=== PATIENT | female | born 1960 | race Caucasian/White ===

== ENCOUNTER → 2017-05-14 | Outpatient (CLI) | payer OTHER ==
--- NOTE | 2017-05-16 09:25 | MM ---
Reason for exam: screening (asymptomatic). Last mammogram was performed 1 year ago. History: Patient is postmenopausal. Excisional biopsy of the left breast. Took hormonal contraceptives for 10 years. Physical Findings: A clinical breast exam by your physician is recommended on an annual basis and results should be correlated with mammographic findings. MG 3D Screening Mammo W/Cad Bilateral CC and MLO view(s) were taken. Prior study comparison: May 07, 2016, bilateral MG 3d screening mammo w/cad. October 19, 2008, bilateral diagnostic digital mammog. The breast tissue is heterogeneously dense. This may lower the sensitivity of mammography. Nodularity lateral left breast on the CC view is new or more defined from priors. ASSESSMENT: Incomplete: need additional imaging evaluation, BI-RAD 0 RECOMMENDATION: Special view mammogram and ultrasound of the left breast. (upper outer quadrant) [facility] will attempt to contact patient to return for supplemental views and ultrasound.
== END | disposition home or self-care (01) ==
LOC: RADMAMWWP 07:11
PROVIDERS: ATTEND Family Medicine
DX: Z12.31 Encounter for screening mammogram for malignant neoplasm of breast (principal); F17.200 Nicotine dependence, unspecified, uncomplicated
CPT/HCPCS: 77063; G0202

== ENCOUNTER 2018-04-09 07:43 | Day surgery (SDC) | payer OTHER ==
[2018-04-07 14:26] VITALS: BMI 27.1
[~2018-04-09 07:43] MED LIST: LACTATED RINGERS 1,000 ML IV SCH
[2018-04-09] MEDS ORDERED: LIDOCAINE 1% 20 ML VIAL (10MG/ML) FOR IV START SQ ONE (08:00)
[2018-04-09 08:05] VITALS: RESP 16; TEMP 97.7
[2018-04-09] MEDS ORDERED: PROPOFOL 10 MG/ML 20 ML VIAL IV ONE (08:54)
--- NOTE | 2018-04-09 09:17 | P.GSHP ---
History of Present Illness H&P Date: 04/09/18 Chief Complaint: GERD This is a 57-year-old female referred from Dr. Gutierrez. Patient presents today for EGD. She's had issues with GERD. Past Medical History Past Medical History: Asthma, GERD/Reflux, Mitral Valve Prolapse (MVP), Pneumonia, Skin Disorder, Thyroid Disorder Additional Past Medical History / Comment(s): HIATAL HERNIA, IBS, COLITIS LONG TIME AGO, STRESS INCONT OF URINE. occ migraines, dermatitis, History of Any Multi-Drug Resistant Organisms: MRSA Date of last positivie culture/infection: 2010 MDRO Source:: knee-2008, rt thumb 2010 Past Surgical History: Adenoidectomy, Breast Surgery, Section, Cholecystectomy, Orthopedic Surgery, Tonsillectomy Additional Past Surgical History / Comment(s): RT knee ACL surgery, RT GREAT TOE FUSION,, jeanine carpel tunnel, nose/sinusl surgery, jeanine bunionectom(rt x 2), surgery for tubal , left breast lumpectomy Past Anesthesia/Blood Transfusion Reactions: Previous Problems w/ Anesthesia Additional Past Anesthesia/Blood Transfusion Reaction / Comment(s): woke up during surgery Smoking Status: Current every day smoker - Past Family History Mother Family Medical History: Cancer Additional Family Medical History / Comment(s): MULTIPLE MYELOMA Father Family Medical History: Cancer Additional Family Medical History / Comment(s): skin cancer Medications and Allergies Home Medications Medication Instructions Recorded Confirmed Type Albuterol Sulfate [Proair Hfa] 2 puff INHALATION Q6HR PRN 04/03/16 04/07/18 History Ascorbic Acid [Vitamin C] 1,000 mg PO DAILY 04/03/16 04/07/18 History Clobetasol Propionate [Temovate 1 applic TOPICAL BID 04/03/16 04/07/18 History 0.05% Cream] Levothyroxine Sodium [Synthroid] 75 mcg PO DAILY 04/03/16 04/07/18 History Aspirin 81 mg PO DAILY #1 chewable 04/05/16 04/07/18 Rx Nitroglycerin Sl Tabs [Nitrostat] 0.4 mg SUBLINGUAL Q5M PRN #25 tab 04/05/1606/14 Rx Omeprazole [PriLOSEC] 20 mg PO AC-BRKFST #30 cap 04/05/16 04/07/18 Rx Cholecalciferol [Vitamin D3] 2,000 unit PO DAILY 04/07/18 04/07/18 History DULoxetine HCL [Cymbalta] 60 mg PO DAILY 04/07/18 04/07/18 History Isosorbide Mononitrate ER [Imdur] 15 mg PO DAILY 04/07/18 04/09/18 History Magnesium Oxide [Mag-Ox] 250 mg PO DAILY 04/07/18 04/07/18 History Montelukast [Singulair] 10 mg PO DAILY 04/07/18 04/07/18 History Sucralfate [Carafate] 1 gm PO QAM 04/07/18 04/07/18 History Turmeric Root Extract [Turmeric] 1,000 mg PO DAILY 04/07/18 04/07/18 History Allergies Allergy/AdvReac Type Severity Reaction Status Date / Time aspirin Allergy Abdominal Verified 04/09/18 07:57 Pain nickel Allergy itching, Verified 04/09/18 07:56 rash Penicillins Allergy Rash/Hives Verified 04/09/18 07:56 Surgical - Exam Vital Signs Temp Pulse Resp BP Pulse Ox 97.7 F 57 L 16 112/72 97 04/09/18 08:04 04/09/18 08:04 04/09/18 08:04 04/09/18 08:04 04/09/18 08:04 - General well developed, no distress - Eyes PERRL - ENT normal pinna - Neck no masses - Respiratory normal expansion - Cardiovascular Rhythm: regular - Abdomen Abdomen: soft, non tender Assessment and Plan Assessment: GERD. We'll perform EGD.
--- NOTE | 2018-04-09 09:20 | P.OP ---
Date of Procedure: 04/09/18 Preoperative Diagnosis: GERD Postoperative Diagnosis: Antral gastritis Small hiatal hernia Mild esophagitis Procedure(s) Performed: EGD Anesthesia: MAC Surgeon: Kevin Mark Pathology: other (Antrum, esophagus) Condition: stable Disposition: PACU Description of Procedure: The patient's placed on the endoscopy table in the lateral position. She received IV sedation. The gastroscope was oropharynx passed in the esophagus and into the stomach. Scope was then placed through the pylorus. The first and second portion of the duodenum appeared normal. Scope was then brought back the antrum this was mildly inflamed. A biopsies performed. The scope was then retroflexed and the remainder of the stomach appeared normal. There was a small hiatal hernia. The GE junction was at 38 cm. The distal esophagus. Minimal inflamed a biopsies performed. The proximal esophagus appeared normal. Scope was withdrawn for patient.
[2018-04-09 09:25] VITALS: PULSE 76
[2018-04-09 09:38] VITALS: BP 95/64
== END 2018-04-09 09:52 | disposition home or self-care (01) ==
LOC: ORWHC2ENDO 07:43
PROVIDERS: ATTEND Surgery
DX: K21.0 Gastro-esophageal reflux disease with esophagitis (principal); K29.50 Unspecified chronic gastritis without bleeding; K44.9 Diaphragmatic hernia without obstruction or gangrene; J44.9 Chronic obstructive pulmonary disease, unspecified; E07.9 Disorder of thyroid, unspecified; I34.1 Nonrheumatic mitral (valve) prolapse; F17.200 Nicotine dependence, unspecified, uncomplicated; Z86.14 Personal history of Methicillin resistant Staphylococcus aureus infection; G43.909 Migraine, unspecified, not intractable, without status migrainosus; Z79.82 Long term (current) use of aspirin; Z79.890 Hormone replacement therapy; Z79.899 Other long term (current) drug therapy; Z88.6 Allergy status to analgesic agent; Z88.0 Allergy status to penicillin; Z91.09 Other allergy status, other than to drugs and biological substances
CPT/HCPCS: 88305; 43239; J2704

== ENCOUNTER 2018-04-29 09:10 | Inpatient (IN) | payer OTHER ==
[2018-04-28 08:32] VITALS: BMI 27.1
[~2018-04-29 09:10] MED LIST changes: +DEXAMETHASONE SOD PHOSPHATE 10 MG/ML 1 ML VIAL IV ONE; +FAMOTIDINE 20 MG/2 ML VIAL IV PRN; +HEPARIN SODIUM,PORCINE 5,000 UNIT/ML 1 ML VIAL SQ ONE; +HYDROmorphone 0.5 MG/0.5 ML SYRINGE IVP PRN; -LACTATED RINGERS 1,000 ML IV SCH; +MORPHINE SULFATE 4 MG/ML SYRINGE IV PRN; +ONDANSETRON 4 MG/2 ML VIAL IVP ONE; +ONDANSETRON 4 MG/2 ML VIAL IVP PRN; +ceFAZolin IN SWFI 2 GM/20 ML SYRINGE IVP ONE
[2018-04-29] MEDS ORDERED: LIDOCAINE 1% 20 ML VIAL (10MG/ML) FOR IV START IV ONE (12:06)
[2018-04-29] MEDS: LACTATED RINGERS 1,000 ML IV SCH ×2 (12:15→14:53)
--- NOTE | 2018-04-29 13:10 | P.GSHP ---
History of Present Illness H&P Date: 04/29/18 Chief Complaint: GERD This 57-year-old female referred from Dr. Gutierrez.The patient has had long- standing problems with reflux esophagitis. The patient underwent recent EGD is found have evidence of esophagitis. Patient has been well informed on the procedure of laparoscopic Nicole fundoplication. The patient is aware the risk of the conversion to the open procedure, risk of injury to the stomach, liver and spleen. The patient is also a risk of recurrent GERD and dysphagia symptoms. The patient understands there is a postoperative diet of full liquids for 2 weeks after surgery. Past Medical History Past Medical History: Asthma, GERD/Reflux, Mitral Valve Prolapse (MVP), Pneumonia, Skin Disorder, Thyroid Disorder Additional Past Medical History / Comment(s): HIATAL HERNIA, IBS, COLITIS LONG TIME AGO, STRESS INCONT OF URINE. occ migraines, dermatitis, heart palpitations History of Any Multi-Drug Resistant Organisms: MRSA Date of last positivie culture/infection: 2010 MDRO Source:: knee-2008, rt thumb 2010 Past Surgical History: Adenoidectomy, Breast Surgery, Section, Cholecystectomy, Orthopedic Surgery, Tonsillectomy Additional Past Surgical History / Comment(s): RT knee ACL surgery, RT GREAT TOE FUSION,, jeanine carpel tunnel, nose/sinusl surgery, jeanine bunionectom(rt x 2), surgery for tubal , left breast lumpectomy Past Anesthesia/Blood Transfusion Reactions: Previous Problems w/ Anesthesia Additional Past Anesthesia/Blood Transfusion Reaction / Comment(s): woke up during surgery Smoking Status: Current every day smoker - Past Family History Mother Family Medical History: Cancer Additional Family Medical History / Comment(s): MULTIPLE MYELOMA Father Family Medical History: Cancer Additional Family Medical History / Comment(s): skin cancer Medications and Allergies Home Medications Medication Instructions Recorded Confirmed Type Albuterol Sulfate [Proair Hfa] 2 puff INHALATION Q6HR PRN 04/03/16 04/29/18 History Ascorbic Acid [Vitamin C] 1,000 mg PO DAILY 04/03/16 04/29/18 History Clobetasol Propionate [Temovate 1 applic TOPICAL BID 04/03/16 04/29/18 History 0.05% Cream] Levothyroxine Sodium [Synthroid] 75 mcg PO DAILY 04/03/16 04/29/18 History Aspirin 81 mg PO DAILY #1 chewable 04/05/16 04/28/18 Rx Nitroglycerin Sl Tabs [Nitrostat] 0.4 mg SUBLINGUAL Q5M PRN #25 tab 04/05/1609/14 Rx Omeprazole [PriLOSEC] 20 mg PO AC-BRKFST #30 cap 04/05/16 04/29/18 Rx Cholecalciferol [Vitamin D3] 2,000 unit PO DAILY 04/07/18 04/29/18 History DULoxetine HCL [Cymbalta] 60 mg PO DAILY 04/07/18 04/29/18 History Isosorbide Mononitrate ER [Imdur] 15 mg PO DAILY 04/07/18 04/29/18 History Magnesium Oxide [Mag-Ox] 250 mg PO DAILY 04/07/18 04/29/18 History Montelukast [Singulair] 10 mg PO DAILY 04/07/18 04/29/18 History Sucralfate [Carafate] 1 gm PO QAM 04/07/18 04/29/18 History Turmeric Root Extract [Turmeric] 1,000 mg PO DAILY 04/07/18 04/29/18 History Gabapentin [Neurontin] 300 mg PO HS 04/28/18 04/29/18 History Allergies Allergy/AdvReac Type Severity Reaction Status Date / Time aspirin Allergy Abdominal Verified 04/29/18 11:51 Pain nickel Allergy itching, Verified 04/29/18 11:51 rash Penicillins Allergy Rash/Hives Verified 04/29/18 11:51 Surgical - Exam Vital Signs Temp Pulse Resp BP Pulse Ox 97.4 F L 79 18 133/70 94 L 04/29/18 11:57 04/29/18 11:57 04/29/18 11:57 04/29/18 11:57 04/29/18 11:57 - General well developed, no distress - Eyes PERRL - ENT normal pinna - Neck no masses - Respiratory normal expansion - Cardiovascular Rhythm: regular - Abdomen Abdomen: soft, non tender Assessment and Plan Assessment: GERD. We'll perform laparoscopic Nicole fundal plication.
[2018-04-29] MEDS ORDERED: LIDOCAINE 1% INJ 10MG/ML (20 ML MDV) ONE (13:42)
[2018-04-29] MEDS ORDERED: KETOROLAC 30 MG/ML 1 ML VIAL ONE (13:42)
[2018-04-29] MEDS ORDERED: MIDAZOLAM 2 MG/2 ML VIAL ONE (13:42)
[2018-04-29] MEDS ORDERED: fentaNYL (PF) 50 MCG/ML 2 ML AMP ONE (13:42)
[2018-04-29] MEDS ORDERED: PROPOFOL 10 MG/ML 20 ML VIAL IV ONE (13:42)
[2018-04-29] MEDS ORDERED: ROCURONIUM BROMIDE 10 MG/ML 10 ML VIAL IV ONE (13:42)
[2018-04-29] MEDS ORDERED: GLYCOPYRROLATE 0.2 MG/ML 2 ML VIAL ONE (13:42)
[2018-04-29] MEDS ORDERED: NEOSTIGMINE 1 MG/ML 10 ML VIAL ONE (13:42)
[2018-04-29] MEDS ORDERED: BUPIVACAIN-EPI 0.25%-1:200,000 30 ML VIAL SQ ONE (14:07)
--- NOTE | 2018-04-29 14:37 | P.OP ---
Date of Procedure: 04/29/18 Preoperative Diagnosis: GERD Postoperative Diagnosis: GERD Procedure(s) Performed: Laparoscopic Nicole fundoplication Anesthesia: PHILLIP Surgeon: Kevin Mark Estimated Blood Loss (ml): 5 Pathology: none sent Condition: stable Disposition: PACU Description of Procedure: HThe patient was placed on the operating table in the supine position. The patient received general anesthesia. And was placed in dorsal lithotomy position. The patient was prepped and draped in the usual sterile fashion. The skin incision sites were anesthetized with 1% local Xylocaine. The skin was incised in the left periumbilical area and then using a blade less 5 mm trocar under direct visualization panel cavity was entered. After adequate insufflation the laparoscope was then placed into the peritoneal cavity. Next a 5 mm trochars placed in the right epigastric position. Another 5 millimeter trocar the right lateral position. Another 5 millimeter trocar in the left lateral position a 5 mm trocar is placed in the left epigastric position. And then the initial 5 mm trocar was exchanged for a 10 mm trocar. The left lateral lobe liver was retracted. The hernia was seen. The crural defect was then dissected using the Harmonic scissors device. A 360 crural dissection was performed the esophagus stomach was reduced back into the peritoneal Cavity. The crural defect was then closed using 2-0 Ethibond suture. Next the fundus of the stomach was mobilized using the [place] scissors device. and then a 58-Emirati bougie dilator was placed oropharynx passed into the esophagus and stomach the fundal plication wrap was then performed by grasping the fundus posteriorly and bringing it around the esophagus and stomach fundoplication was then performed using 2-0 Ethibond suture. Care was taken that the fundal location rested over top of the intra-abdominal esophagus. There was no injury seen to the stomach or esophagus. The dilator was then withdrawn. The abdomen was irrigated there is no bleeding seen. The trochars were then withdrawn and then skin incision sites were closed using 3-0 Monocryl suture Steri-Strips are applied. Patient thought procedure well and sent to recovery room in stable condition.
[2018-04-29] MEDS ORDERED: LACTATED RINGERS 1,000 ML IV ONE (14:49)
[2018-04-29] MEDS ORDERED: HYDROmorphone 1 MG/ML 1 ML SYRINGE IVP ONE (15:11)
[2018-04-29] MEDS ORDERED: ALBUTEROL NEBULIZED 2.5 MG/3 ML INHALATION PRN (16:45)
[2018-04-29] MEDS ORDERED: NITROGLYCERIN SL TABS 0.4 MG TAB SUBLINGUAL PRN (16:45)
[2018-04-29] MEDS: METOCLOPRAMIDE 5 MG/ML 2 ML VIAL IVP SCH (17:08)
[2018-04-29] MEDS: D5-0.45% NACL WITH KCL 20MEQ/L 1,000 ML IV SCH (17:09)
[2018-04-29] MEDS: HYDROmorphone 1 MG/ML 1 ML SYRINGE IVP PRN ×2 (19:31→23:00)
[2018-04-29] MEDS ORDERED: GABAPENTIN 300 MG CAP PO SCH (21:00)
[2018-04-29] MEDS: CLOBETASOL PROP 0.05% CR 15GM TOPICAL SCH (21:53)
--- NOTE | 2018-04-29 22:39 | CONS ---
CONSULTATION DATE OF CONSULTATION: 04/29/2018 DATE OF SERVICE: 04/29/2018 REASON FOR CONSULTATION: Medical management, requested by Dr. Mark. CONSULTATION: This is a pleasant 57-year-old patient of Dr. Gutierrez whose chronic stable medical conditions include asthma, GERD, mitral valve prolapse, hypothyroid, irritable bowel syndrome, urinary stress incontinence, anxiety. The patient was having severe reflux symptoms, including water brash, uncontrolled, and patient now has subsequently undergone a Nicole fundoplication by Dr. Mark. Post procedure, no chest pain or shortness of breath. No nausea or vomiting. Lying in bed, getting IV fluids. Patient was started on a clear liquid diet. The patient has been up to the bathroom. REVIEW OF SYSTEMS: CONSTITUTIONAL: None. HEENT: None. RESPIRATORY: Occasional wheezing and shortness of breath. CARDIOVASCULAR: None. GASTROINTESTINAL: As above. GENITOURINARY: Urinary stress incontinence. DERMATOLOGICAL: None. HEMATOLOGICAL: None. LYMPHATICS: None. PSYCHIATRY: Anxiety. NEUROLOGICAL: None. PAST MEDICAL HISTORY: 1. Asthma since childhood. 2. Severe GERD. 3. Mitral valve prolapse. 4. Hypothyroid. 5. Hiatal hernia. 6. Irritable bowel syndrome. 7. Urinary stress incontinence. 8. Anxiety. PAST SURGICAL HISTORY: 1. Adenoidectomy. 2. Breast surgery. 3. . 4. Cholecystectomy. 5. Orthopedic surgery. 6. Tonsillectomy. 7. Right knee ACL surgery. 8. Right great toe fusion. 9. Bilateral carpal tunnel. 10.Nose surgery. 11.Bilateral bunionectomy. 12.Left breast lumpectomy. PSYCH HISTORY: Anxiety. SOCIAL HISTORY: The patient has been smoking about half a pack a day for over 40 years. . Alcohol occasionally. FAMILY HISTORY: Multiple myeloma. HOME MEDICATIONS: 1. Turmeric 1000 mg p.o. daily. 2. Carafate 1 gram p.o. daily. 3. Prilosec 20 mg with breakfast. 4. Nitrostat 0.4 sublingually q.5 p.r.n. 5. Singulair 10 mg p.o. daily. 6. Magnesium oxide 250 mg p.o. daily. 7. Synthroid 75 mcg daily. 8. Imdur ER 50 mg p.o. daily. 9. Neurontin 300 mg at bedtime. 10.Cymbalta 60 mg p.o. daily. 11.Temovate 0.05% topically b.i.d. 12.Vitamin D3 2000 units p.o. daily. 13.Aspirin 81 mg p.o. daily. 14.Vitamin C 1000 units p.o. daily. 15.ProAir 2 puffs q.6 p.r.n. ALLERGIES: 1. ASPIRIN. 2. NICKEL. 3. PENICILLIN. PHYSICAL EXAMINATION: Afebrile. Pulse 76, respiration 18, blood pressure 112/73, pulse ox 95% on 2 L. GENERAL APPEARANCE: Average build. Lying in bed, awake, comfortable. EYES: Pupils equal. Conjunctivae normal. HEENT: External appearance of nose and ears normal. Oral cavity normal. NECK: JVD not raised. Mass not palpable. RESPIRATORY: Effort normal. LUNGS: Decreased breath sounds. CARDIOVASCULAR: First and second sounds normal. No edema. ABDOMEN: Soft. Mild tenderness. Liver and spleen not palpable. LYMPHATIC: No lymph node palpable in neck or axillae. PSYCHIATRY: Alert and oriented x3. Mood and affect normal. NEUROLOGICAL: Pupils equal. Cranial nerves grossly intact. Power and sensation grossly intact. INVESTIGATIONS: No blood work from today. ASSESSMENT: 1. Nicole fundoplication for uncontrolled gastroesophageal reflux disease. 2. Moderate persistent asthma, stable. 3. Hypothyroid. 4. Irritable bowel syndrome. 5. Chronic urinary stress incontinence. 6. Anxiety not otherwise specified. 7. Chronic nicotine dependence. Patient is a cigarette smoker. PLAN: Patient's home medications are resumed. Patient is on Venodyne boots for DVT prophylaxis, getting IV fluids. Patient is Nicole clear liquids. Diet will be advanced per Dr. Mark. Care was discussed with the patient. Questions were answered. Nicotine patch will be given. MMODL / IJN: [id number] /
[2018-04-30] MEDS: NICOTINE 14MG/24HR PATCH TRANSDERM SCH ×2 (00:05→08:43)
[2018-04-30] MEDS: METOCLOPRAMIDE 5 MG/ML 2 ML VIAL IVP SCH ×3 (00:06→12:20)
[2018-04-30] MEDS: HYDROmorphone 1 MG/ML 1 ML SYRINGE IVP PRN (03:28)
[2018-04-30] MEDS ORDERED: LEVOTHYROXINE 75 MCG TAB PO SCH (06:30)
[2018-04-30] MEDS ORDERED: PANTOPRAZOLE 40 MG TABLET PO SCH (07:30)
[2018-04-30 08:12] VITALS: BP 99/64; PULSE 74; RESP 16; TEMP 98
[2018-04-30] MEDS: D5-0.45% NACL WITH KCL 20MEQ/L 1,000 ML IV SCH (08:26)
[2018-04-30] MEDS: CLOBETASOL PROP 0.05% CR 15GM TOPICAL SCH (08:43)
--- NOTE | 2018-04-30 08:59 | FL ---
EXAMINATION TYPE: FL esophagus cervic/pharynx DATE OF EXAM: 04/30/2018 HISTORY: Status post Nicole fundoplication COMPARISON: NONE TECHNIQUE: Single contrast exam FINDINGS: The esophagus shows normal motility and emptying into the stomach. No evidence of hiatal hernia or s tricture noted. Postop change noted at the gastroesophageal junction. No significant gastroesophageal reflux was seen during real time performance of this study. No obstruction to flow or extravasation. Surgical clips present in the right upper quadrant. 21 seconds fluoroscopy time, 2 intraoperative im ages obtained. IMPRESSION: No complications secondary to patient's procedure.
[2018-04-30] MEDS ORDERED: ASPIRIN 81 MG PO SCH (09:00)
[2018-04-30] MEDS ORDERED: ISOSORBIDE MONONITRATE ER 15 MG TAB PO SCH (09:00)
[2018-04-30] MEDS ORDERED: ENOXAPARIN 40 MG/0.4 ML SYRINGE SQ SCH (09:00)
[2018-04-30] MEDS ORDERED: MONTELUKAST 10 MG TAB PO SCH (09:00)
[2018-04-30] MEDS ORDERED: DULoxetine HCL 60 MG CAPSULE.DR PO SCH (09:00)
[2018-04-30] MEDS ORDERED: HYDROcodone/APAP 5-325MG 1 EACH TAB PO PRN (09:31)
--- NOTE | 2018-04-30 11:01 | P.DS ---
Providers Date of admission: 04/29/18 10:06 Expected date of discharge: 04/30/18 Attending physician: Kevin Mark Consults: 04/29/18 14:38 Consult Physician Routine Consulting Provider: Mane Dalton Consult Reason/Comments: Medical management Do you want consulting provider notified?: Yes Primary care physician: [place] [facility] Course: 57-year-old presented on elective basis to undergo any laparoscopic Nicole fundoplication for symptomatic esophageal reflux symptoms failing outpatient treatment Patient underwent recent EGD showed evidence of esophagitis. Has a long- standing problem with reflux esophagitis. Patient underwent laparoscopic Nicole fundoplication on April 29. Esophagram obtained showed no complications secondary to patient's procedure no evidence of a hiatal hernia or stricture. Patient was tolerating a diet was felt to be appropriate to be discharged home On the day of discharge patient was up ambulatory on the unit taking a diet surgical dressing sites dry Impression discharge diagnosis Esophageal reflux disease symptomatic failed outpatient treatment Postop April laparoscopic Nicole fundoplication Recent EGDs with evidence of esophagitis Long-standing problem with reflux esophagitis The above impression and plan of care have been discussed and directed by signing physician. Ivy Logan nurse practitioner acting as scribe for signing physician. Plan - Discharge Summary Discharge Rx Participant: No New Discharge Prescriptions: New HYDROcodone/APAP 5-325MG [[place] 5-325] 1 tab PO Q6HR PRN 3 Days #12 tab PRN Reason: Mild Breakthrough Pain No Action Levothyroxine Sodium [Synthroid] 75 mcg PO DAILY Clobetasol Propionate [Temovate 0.05% Cream] 1 applic TOPICAL BID Ascorbic Acid [Vitamin C] 1,000 mg PO DAILY Albuterol Sulfate [Proair Hfa] 2 puff INHALATION RT-Q6H PRN PRN Reason: Shortness Of Breath Aspirin 81 mg PO DAILY #1 chewable Nitroglycerin Sl Tabs [Nitrostat] 0.4 mg SUBLINGUAL Q5M PRN #25 tab PRN Reason: Chest Pain Omeprazole [PriLOSEC] 20 mg PO AC-BRKFST #30 cap Magnesium Oxide [Mag-Ox] 250 mg PO DAILY Cholecalciferol [Vitamin D3] 2,000 unit PO DAILY Sucralfate [Carafate] 1 gm PO QAM Isosorbide Mononitrate ER [Imdur] 15 mg PO DAILY Montelukast [Singulair] 10 mg PO DAILY DULoxetine HCL [Cymbalta] 60 mg PO DAILY Turmeric Root Extract [Turmeric] 1,000 mg PO DAILY Gabapentin [Neurontin] 300 mg PO HS Discharge Medication List Albuterol Sulfate [Proair Hfa] 2 puff INHALATION RT-Q6H PRN 04/03/16 [History] Ascorbic Acid [Vitamin C] 1,000 mg PO DAILY 04/03/16 [History] Clobetasol Propionate [Temovate 0.05% Cream] 1 applic TOPICAL BID 04/03/16 [ History] Levothyroxine Sodium [Synthroid] 75 mcg PO DAILY 04/03/16 [History] Aspirin 81 mg PO DAILY #1 chewable 04/05/16 [Rx] Nitroglycerin Sl Tabs [Nitrostat] 0.4 mg SUBLINGUAL Q5M PRN #25 tab 04/05/16 [Rx ] Omeprazole [PriLOSEC] 20 mg PO AC-BRKFST #30 cap 04/05/16 [Rx] Cholecalciferol [Vitamin D3] 2,000 unit PO DAILY 04/07/18 [History] DULoxetine HCL [Cymbalta] 60 mg PO DAILY 04/07/18 [History] Isosorbide Mononitrate ER [Imdur] 15 mg PO DAILY 04/07/18 [History] Magnesium Oxide [Mag-Ox] 250 mg PO DAILY 04/07/18 [History] Montelukast [Singulair] 10 mg PO DAILY 04/07/18 [History] Sucralfate [Carafate] 1 gm PO QAM 04/07/18 [History] Turmeric Root Extract [Turmeric] 1,000 mg PO DAILY 04/07/18 [History] Gabapentin [Neurontin] 300 mg PO HS 04/28/18 [History] HYDROcodone/APAP 5-325MG [[place] 5-325] 1 tab PO Q6HR PRN 3 Days #12 tab [Rx] Follow up Appointment(s)/Referral(s): Kevin Mark MD [STAFF PHYSICIAN] - 05/12/18 1:20 pm Activity/Diet/Wound Care/Special Instructions: No tub bath for six weeks. Shower daily. No lifting over 10 pounds for the next 4 weeks. Full liquid diet for 2 weeks after surgery May use ice packs to surgical site. No driving while taking narcotic for pain. Discharge Disposition: HOME SELF-CARE
== END 2018-04-30 13:15 | disposition home or self-care (01) | DRG 328 ==
LOC: 2ORMAIN 10:06 → 6PED 14:42
PROVIDERS: ADMIT Surgery; ATTEND Surgery
PROC: 0DV44ZZ Restriction of Esophagogastric Junction, Percutaneous Endoscopic Approach (ICD-10-PCS; principal; 2018-04-29 12:10)
DX: K21.0 Gastro-esophageal reflux disease with esophagitis (principal); E03.9 Hypothyroidism, unspecified; F17.210 Nicotine dependence, cigarettes, uncomplicated; F41.9 Anxiety disorder, unspecified; I34.1 Nonrheumatic mitral (valve) prolapse; J45.40 Moderate persistent asthma, uncomplicated; K58.9 Irritable bowel syndrome, unspecified; N39.3 Stress incontinence (female) (male); Z79.82 Long term (current) use of aspirin; Z79.899 Other long term (current) drug therapy; Z80.7 Family history of other malignant neoplasms of lymphoid, hematopoietic and related tissues; Z80.8 Family history of malignant neoplasm of other organs or systems; Z88.6 Allergy status to analgesic agent; Z88.0 Allergy status to penicillin; Z91.048 Other nonmedicinal substance allergy status; Z79.890 Hormone replacement therapy
CPT/HCPCS: 74210

== ENCOUNTER 2019-05-17 15:22 | Emergency (ER) | payer OTHER ==
[2019-05-17 15:40] VITALS: RESP 18
[2019-05-17] MEDS ORDERED: SODIUM CHLORIDE 0.9% 1,000 ML IV STA (16:12)
[2019-05-17] MEDS ORDERED: KETOROLAC 30 MG/ML 1 ML VIAL IVP STA (16:12)
[2019-05-17] MEDS ORDERED: ONDANSETRON 4 MG/2 ML VIAL IVP STA (16:12)
--- NOTE | 2019-05-17 16:18 | ED ---
Abdominal Pain HPI - General Chief Complaint: Abdominal Pain Stated Complaint: fever and Abd pain sent by PCP Time Seen by Provider: 05/17/19 15:55 Source: patient Mode of arrival: ambulatory Limitations: no limitations - History of Present Illness Initial Comments: Patient is a 4-year-old female presenting to the emergency department complaints of abdominal pain, nausea, diarrhea 2 weeks. Patient went to her PCP today who then sent her to the ER. Patient also has had a fever for the last few days, around the 100.6. Patient has been taking aspirin as well as Tylenol for fever control. Patient took 2 aspirin approximately 2 hours prior to arrival. Patient states she has never had diarrhea for this long, no history of IBS, Crohn's, UC. She denies recent antibiotic use. Patient states her belly pain is widespread and mostly lower abdominal. Patient denies any urinary complaints. Patient states she has not been able to eat and drink very much secondary to the pain. Surgical history of cholecystectomy, hiatal hernia repair. Patient has no other complaints at this time. Patient denies cough, congestion, chest pain, headache. Upon arrival to ER, vital signs are stable. - Related Data Home Medications Medication Instructions Recorded Confirmed Albuterol Sulfate [Proair Hfa] 2 puff INHALATION RT-Q6H PRN 04/03/16 04/29/18 Ascorbic Acid [Vitamin C] 1,000 mg PO DAILY 04/03/16 04/29/18 Clobetasol Propionate [Temovate 1 applic TOPICAL BID 04/03/16 04/29/18 0.05% Cream] Levothyroxine Sodium [Synthroid] 75 mcg PO DAILY 04/03/16 04/29/18 Cholecalciferol [Vitamin D3] 2,000 unit PO DAILY 04/07/18 04/29/18 DULoxetine HCL [Cymbalta] 60 mg PO DAILY 04/07/18 04/29/18 Isosorbide Mononitrate ER [Imdur] 15 mg PO DAILY 04/07/18 04/29/18 Magnesium Oxide [Mag-Ox] 250 mg PO DAILY 04/07/18 04/29/18 Montelukast [Singulair] 10 mg PO DAILY 04/07/18 04/29/18 Sucralfate [Carafate] 1 gm PO QAM 04/07/18 04/29/18 Turmeric Root Extract [Turmeric] 1,000 mg PO DAILY 04/07/18 04/29/18 Gabapentin [Neurontin] 300 mg PO HS 04/28/18 04/29/18 Previous Rx's Medication Instructions Recorded Aspirin 81 mg PO DAILY #1 chewable 04/05/16 Nitroglycerin Sl Tabs [Nitrostat] 0.4 mg SUBLINGUAL Q5M PRN #25 tab 04/05/16 Omeprazole [PriLOSEC] 20 mg PO AC-BRKFST #30 cap 04/05/16 HYDROcodone/APAP 5-325MG [[place] 1 tab PO Q6HR PRN 3 Days #12 tab 04/30/18 5-325] Levofloxacin 500 mg PO DAILY 5 Days #5 tablet 05/17/19 Ondansetron Odt [Zofran Odt] 4 mg PO Q8HR PRN #10 tab 05/17/19 metroNIDAZOLE [Flagyl] 500 mg PO BID 5 Days #10 tab 05/17/19 Allergies Allergy/AdvReac Type Severity Reaction Status Date / Time aspirin Allergy Abdominal Verified 05/17/19 15:40 Pain nickel Allergy itching, Verified 05/17/19 15:40 rash Penicillins Allergy Rash/Hives Verified 05/17/19 15:40 Review of Systems ROS Statement: Those systems with pertinent positive or pertinent negative responses have been documented in the HPI. ROS Other: All systems not noted in ROS Statement are negative. Past Medical History Past Medical History: Asthma, GERD/Reflux, Mitral Valve Prolapse (MVP), Pneumonia, Skin Disorder, Thyroid Disorder Additional Past Medical History / Comment(s): HIATAL HERNIA, IBS, COLITIS LONG TIME AGO, STRESS INCONT OF URINE. occ migraines, dermatitis, heart palpitations History of Any Multi-Drug Resistant Organisms: MRSA Date of last positivie culture/infection: 2010 MDRO Source:: knee-2008, rt thumb 2010 Past Surgical History: Adenoidectomy, Breast Surgery, Section, Cholecystectomy, Orthopedic Surgery, Tonsillectomy Additional Past Surgical History / Comment(s): RT knee ACL surgery, RT GREAT TOE FUSION,, jeanine carpel tunnel, nose/sinusl surgery, jeanine bunionectom(rt x 2), surgery for tubal , left breast lumpectomy Past Anesthesia/Blood Transfusion Reactions: Previous Problems w/ Anesthesia Additional Past Anesthesia/Blood Transfusion Reaction / Comment(s): woke up during surgery Past Psychological History: Anxiety Smoking Status: Current every day smoker Past Alcohol Use History: Occasional Past Drug Use History: None Reported - Past Family History Mother Family Medical History: Cancer Additional Family Medical History / Comment(s): MULTIPLE MYELOMA Father Family Medical History: Cancer Additional Family Medical History / Comment(s): skin cancer General Exam - General Exam Comments Initial Comments: GENERAL: Well-appearing, well-nourished and in no acute distress, but appears uncomfortable and in pain. HEAD: Atraumatic, normocephalic. EYES: Pupils equal round and reactive to light, extraocular movements intact, sclera anicteric, conjunctiva are normal. ENT: TMs normal, nares patent, oropharynx clear without exudates. Moist mucous membranes. NECK: Normal range of motion, supple without lymphadenopathy or JVD. LUNGS: Breath sounds clear to auscultation bilaterally and equal. No wheezes rales or rhonchi. HEART: Regular rate and rhythm without murmurs, rubs or gallops. ABDOMEN: Generalized abdominal tenderness mostly lower abdomen, well as right side and left-sided abdomen. Soft, hyperactive bowel sounds. No masses appreciated. : Deferred EXTREMITIES: Normal range of motion, no pitting or edema. No clubbing or cyanosis. NEUROLOGICAL: Cranial nerves II through XII grossly intact. Normal speech, normal gait. PSYCH: Normal mood, normal affect. SKIN: Warm, Dry, normal turgor, no rashes or lesions noted. Limitations: no limitations Course Vital Signs 05/17/19 15:37 Temperature 98.5 F Pulse Rate 92 Respiratory 18 Rate Blood Pressure 106/73 O2 Sat by Pulse 98 Oximetry Medical Decision Making - Medical Decision Making Patient is a 58-year-old female presenting with abdominal pain, nausea, vomiting, diarrhea 2 weeks. Vital signs are stable upon arrival. Patient has been febrile. Exam reveals generalized abdominal tenderness. CBC shows 14.8 white count, coags are normal. CMP is within normal limits. Lactic acid is 1.1. Urine shows small amount of blood, moderate bacteria. CT of the abdomen shows colitis from the ascending colon through the transverse colon through the descending colon. Patient is unable to leave stool sample at this time. Patient was given fluids, Zofran, Toradol and reports improvement in symptoms. Patient will be started on Levaquin and Flagyl for symptoms as well as Zofran as needed for nausea. Patient will also be discharged with a stool collection kit and prescription for stool studies if symptoms persist. Patient is in agreement with this plan of care. Case discussed with Dr. Aguila who also agrees with this plan of care. Strict return parameters were discussed with the patient she verbalized understanding. - Lab Data Result diagrams: 05/17/19 16:40 05/17/19 16:40 Lab Results 05/17/19 05/17/19 05/17/19 Range/Units 16:40 16:40 16:40 WBC 14.8 H (3.8-10.6) k/uL RBC 4.76 (3.80-5.40) m/uL Hgb 14.8 (11.4-16.0) gm/dL Hct 45.5 (34.0-46.0) % MCV 95.7 (80.0-100.0) fL MCH 31.0 (25.0-35.0) pg MCHC 32.4 (31.0-37.0) g/dL RDW 13.5 (11.5-15.5) % Plt Count 379 (150-450) k/uL Neutrophils % 77 % Lymphocytes % 13 % Monocytes % 6 % Eosinophils % 3 % Basophils % 1 % Neutrophils # 11.4 H (1.3-7.7) k/uL Lymphocytes # 1.8 (1.0-4.8) k/uL Monocytes # 0.9 (0-1.0) k/uL Eosinophils # 0.4 (0-0.7) k/uL Basophils # 0.2 (0-0.2) k/uL PT (9.0-12.0) sec INR (<1.2) APTT (22.0-30.0) sec Sodium 138 (137-145) mmol/L Potassium 3.4 L (3.5-5.1) mmol/L Chloride 101 (98-107) mmol/L Carbon Dioxide 28 (22-30) mmol/L Anion Gap 9 mmol/L BUN 6 L (7-17) mg/dL Creatinine 0.68 (0.52-1.04) mg/dL Est GFR (CKD-EPI)AfAm >90 (>60 ml/min/1.73 sqM) Est GFR (CKD-EPI)NonAf >90 (>60 ml/min/1.73 sqM) Glucose 96 (74-99) mg/dL Plasma Lactic Acid Esau (0.7-2.0) mmol/L Calcium 9.2 (8.4-10.2) mg/dL Total Bilirubin 0.4 (0.2-1.3) mg/dL AST 29 (14-36) U/L ALT 30 (9-52) U/L Alkaline Phosphatase 140 H (38-126) U/L Total Protein 6.7 (6.3-8.2) g/dL Albumin 3.8 (3.5-5.0) g/dL Amylase 40 (30-110) U/L Lipase 93 (23-300) U/L Urine Color Yellow Urine Appearance Cloudy H (Clear) Urine pH 6.0 (5.0-8.0) Ur Specific [place] 1.011 (1.001-1.035) Urine Protein Negative (Negative) Urine Glucose (UA) Negative (Negative) Urine Ketones Negative (Negative) Urine Blood Small H (Negative) Urine Nitrite Negative (Negative) Urine Bilirubin Negative (Negative) Urine Urobilinogen <2.0 (<2.0) mg/dL Ur Leukocyte Esterase Large H (Negative) Urine RBC 30 H (0-5) /hpf Urine WBC 1 (0-5) /hpf Ur Squamous Epith Cells 1 (0-4) /hpf Urine Bacteria Moderate H (None) /hpf Urine Mucus Many H (None) /hpf 05/17/19 05/17/19 Range/Units 16:40 16:40 WBC (3.8-10.6) k/uL RBC (3.80-5.40) m/uL Hgb (11.4-16.0) gm/dL Hct (34.0-46.0) % MCV (80.0-100.0) fL MCH (25.0-35.0) pg MCHC (31.0-37.0) g/dL RDW (11.5-15.5) % Plt Count (150-450) k/uL Neutrophils % % Lymphocytes % % Monocytes % % Eosinophils % % Basophils % % Neutrophils # (1.3-7.7) k/uL Lymphocytes # (1.0-4.8) k/uL Monocytes # (0-1.0) k/uL Eosinophils # (0-0.7) k/uL Basophils # (0-0.2) k/uL PT 10.4 (9.0-12.0) sec INR 1.0 (<1.2) APTT 23.9 (22.0-30.0) sec Sodium (137-145) mmol/L Potassium (3.5-5.1) mmol/L Chloride (98-107) mmol/L Carbon Dioxide (22-30) mmol/L Anion Gap mmol/L BUN (7-17) mg/dL Creatinine (0.52-1.04) mg/dL Est GFR (CKD-EPI)AfAm (>60 ml/min/1.73 sqM) Est GFR (CKD-EPI)NonAf (>60 ml/min/1.73 sqM) Glucose (74-99) mg/dL Plasma Lactic Acid Esau 1.1 (0.7-2.0) mmol/L Calcium (8.4-10.2) mg/dL Total Bilirubin (0.2-1.3) mg/dL AST (14-36) U/L ALT (9-52) U/L Alkaline Phosphatase (38-126) U/L Total Protein (6.3-8.2) g/dL Albumin (3.5-5.0) g/dL Amylase (30-110) U/L Lipase (23-300) U/L Urine Color Urine Appearance (Clear) Urine pH (5.0-8.0) Ur Specific [place] (1.001-1.035) Urine Protein (Negative) Urine Glucose (UA) (Negative) Urine Ketones (Negative) Urine Blood (Negative) Urine Nitrite (Negative) Urine Bilirubin (Negative) Urine Urobilinogen (<2.0) mg/dL Ur Leukocyte Esterase (Negative) Urine RBC (0-5) /hpf Urine WBC (0-5) /hpf Ur Squamous Epith Cells (0-4) /hpf Urine Bacteria (None) /hpf Urine Mucus (None) /hpf Disposition Clinical Impression: Colitis, UTI (urinary tract infection) Disposition: HOME SELF-CARE Condition: Stable Instructions (If sedation given, give patient instructions): Colitis (ED) Additional Instructions: Please return to the Emergency Department if symptoms worsen or any other concerns. Take antibiotics as prescribed. Introduce foods slowly. Continue to increase f luid intake. Follow-up with PCP if symptoms do not improve in 3-5 days. Prescriptions: metroNIDAZOLE [Flagyl] 500 mg PO BID 5 Days #10 tab Levofloxacin 500 mg PO DAILY 5 Days #5 tablet Ondansetron Odt [Zofran Odt] 4 mg PO Q8HR PRN #10 tab PRN Reason: Nausea Is patient prescribed a controlled substance at d/c from ED?: No Referrals: Orville Gutierrez DO [Primary Care Provider] - 1-2 days
[2019-05-17 17:00] LABS: Basophils # (A) 0.2 k/uL (0-0.2); Basophils % (A) 1 %; Eosinophils # (A) 0.4 k/uL (0-0.7); Eosinophils % (A) 3 %; HCT 45.5 % (34.0-46.0); HGB 14.8 gm/dL (11.4-16.0); Lymphocytes # (A) 1.8 k/uL (1.0-4.8); Lymphocytes % (A) 13 %; MCHC 32.4 g/dL (31.0-37.0); MCV 95.7 fL (80.0-100.0); Mean Platelet Volume 7.6; Monocytes # (A) 0.9 k/uL (0-1.0); Monocytes % (A) 6 %; Neutrophils # (A) 11.4 k/uL (1.3-7.7); Neutrophils % (A) 77 %; Platelet Count 379 k/uL (150-450); RBC 4.76 m/uL (3.80-5.40); RDW 13.5 % (11.5-15.5); WBC 14.8 k/uL (3.8-10.6)
[2019-05-17 17:04] LABS: Appearance,Urine Cloudy (Clear); Bacteria,Urine Moderate /hpf; Bilirubin,Urine Negative (Negative); Blood,Urine Small (Negative); Color,Urine Yellow; Glucose,Urine (UA) Negative (Negative); Ketones,Urine Negative (Negative); Leukocyte Esterase,Urine Large (Negative); Mucus,Urine Many /hpf; Nitrite,Urine Negative (Negative); Protein,Urine Negative (Negative); RBC,Urine 30 /hpf (0-5); Specific Gravity,Urine 1.011 (1.001-1.035); Squamous Epithelial Cell,Urine 1 /hpf (0-4); Urobilinogen,Urine <2.0 mg/dL (<2.0)
[2019-05-17 17:11] LABS: ALT 30 U/L (9-52); AST 29 U/L (14-36); African American GFR (CKD) >90 (>60 ml/min/1.73 sqM); Albumin 3.8 g/dL (3.5-5.0); Alkaline Phosphatase 140 U/L (38-126); Amylase 40 U/L (30-110); Anion Gap 9 mmol/L; Blood Urea Nitrogen 6 mg/dL (7-17); Calcium 9.2 mg/dL (8.4-10.2); Carbon Dioxide 28 mmol/L (22-30); Chloride 101 mmol/L (98-107); Glucose 96 mg/dL (74-99); Partial Thromboplastin Time 23.9 sec (22.0-30.0); Potassium 3.4 mmol/L (3.5-5.1); Prothrombin Time 10.4 sec (9.0-12.0); Sodium 138 mmol/L (137-145); Total Bilirubin 0.4 mg/dL (0.2-1.3); Total Protein 6.7 g/dL (6.3-8.2)
--- NOTE | 2019-05-17 17:30 | CT ---
EXAMINATION TYPE: CT abdomen pelvis w con DATE OF EXAM: 05/17/2019 COMPARISON: None INDICATION: Abdomen pain, fever DLP: 766 mGycm, Automated exposure control for dose reduction was used. CONTRAST: 100 mL of Isovue 300. Study performed without Oral Contrast TECHNIQUE: Axial images were obtained from above the diaphragm to the pubic rami in the axial plane a t 5 mm thick sections. Reconstructed images are reviewed on the computer in the coronal plane. FINDINGS: Limited CT sections are obtained the lung bases. The lung bases are clear. CT ABDOMEN: Liver: Normal Spleen: Normal Pancreas: Normal Adrenal glands: The adrenal glands are normal. Gallbladder: Normal Kidneys: No masses are evident. No hydronephrosis is present. No cysts are present. Delayed images were obtained through the kidneys, which remain unremarkable. Aorta: Vascular calcification is within the aorta. Inferior vena cava: Normal. CT PELVIS: The ascending transverse and descending colon have thickened wall. The sigmoid colon is more normal a ppearance. Some very minimal inflammatory change may be adjacent to the ascending colon. Correlate fo r colitis. Appendix: Normal as visualized. Urinary bladder: Normal. Genitourinary structures: Uterus appears normal. Adnexal regions are clear. No free fluid is within t he pelvis. Osseous structures: No suspicious lytic or sclerotic lesions. IMPRESSIONS: 1. Clinical consideration for colitis from the ascending colon through the transverse colon to the d escending colon is recommended.
[2019-05-17] MEDS ORDERED: LEVOFLOXACIN 500 MG TAB PO STA (18:12)
[2019-05-17] MEDS ORDERED: metroNIDAZOLE 500 MG TAB PO STA (18:12)
[2019-05-17 18:43] VITALS: BP 102/57; PULSE 84; TEMP 98.7
== END 2019-05-17 18:44 | disposition home or self-care (01) ==
LOC: EC 15:22
DX: N39.0 Urinary tract infection, site not specified (principal); K52.9 Noninfective gastroenteritis and colitis, unspecified; J45.909 Unspecified asthma, uncomplicated; E07.9 Disorder of thyroid, unspecified; F41.9 Anxiety disorder, unspecified; F17.200 Nicotine dependence, unspecified, uncomplicated; Z88.0 Allergy status to penicillin; Z88.6 Allergy status to analgesic agent; Z91.048 Other nonmedicinal substance allergy status; Z79.52 Long term (current) use of systemic steroids; Z79.890 Hormone replacement therapy; Z79.899 Other long term (current) drug therapy; Z86.14 Personal history of Methicillin resistant Staphylococcus aureus infection; Z87.2 Personal history of diseases of the skin and subcutaneous tissue; Z86.69 Personal history of other diseases of the nervous system and sense organs; Z87.01 Personal history of pneumonia (recurrent); Z87.19 Personal history of other diseases of the digestive system; Z90.49 Acquired absence of other specified parts of digestive tract; Z98.890 Other specified postprocedural states
CPT/HCPCS: 36415; 80053; 82150; 83605; 83690; 85025; 85610; 85730; 81001; 87040; 74177; 99284; 96374; 96375; 96361 ×2; J2405; J1885; Q9967

== ENCOUNTER 2019-05-18 14:48 | Inpatient (IN) | payer OTHER ==
[2019-05-18] MEDS ORDERED: ONDANSETRON 4 MG/2 ML VIAL IVP STA (17:18)
[2019-05-18] MEDS ORDERED: PANTOPRAZOLE 40 MG/10 ML VIAL IVP STA (17:18)
[2019-05-18] MEDS ORDERED: SODIUM CHLORIDE 0.9% 1,000 ML IV STA ×2 (17:18)
[2019-05-18] MEDS ORDERED: SODIUM CHLORIDE 0.9% 500 ML 500 ML IV STA (17:18)
[2019-05-18] MEDS ORDERED: MORPHINE SULFATE 4 MG/ML SYRINGE IV STA (17:18)
[2019-05-18] MEDS ORDERED: LEVOFLOXACIN 750MG-D5W PMX 750 MG in DEXTROSE/WATER 1 150ML.BAG IVPB STA (17:20)
[2019-05-18] MEDS ORDERED: metroNIDAZOLE-NS PMX 500 MG in SALINE 1 100ML.BAG IVPB STA (17:20)
--- NOTE | 2019-05-18 17:48 | ED ---
Abdominal Pain HPI - General Chief Complaint: Abdominal Pain Stated Complaint: Dx CHOLITIS, UTI, SYMPTOMS GETTING WORSE Time Seen by Provider: 05/18/19 17:12 Source: patient, RN notes reviewed, old records reviewed Mode of arrival: ambulatory Limitations: no limitations - History of Present Illness Initial Comments: This is a 4-year-old female she presents today for evaluation of colitis. Patient was scheduled to have outpatient stool studies have having significant stool here in the ER and significant stool at home significant weakness with elevated heart oral intake. Patient was seen in ER yesterday diagnosis colitis was not having significant bowel movements in the ER was feeling better and decided discharged home. Patient is significantly regressed, symptoms increasing worsening. Patient denies recent antibiotic use. No significant abdominal pain just overall weakness nausea vomiting and diarrhea MD Complaint: abdominal pain -: days(s) Location: diffuse, periumbilical Migration to: no migration Severity: moderate Severity scale (1-10): 6 Quality: aching Consistency: constant Improves With: nothing Worsens With: eating, bowel movement Context: other (Diagnosis colitis yesterday) Associated Symptoms: nausea, vomiting, diarrhea - Related Data Home Medications Medication Instructions Recorded Confirmed Albuterol Sulfate [Proair Hfa] 2 puff INHALATION RT-Q8H PRN 04/03/16 05/18/19 Ascorbic Acid [Vitamin C] 1,000 mg PO DAILY 04/03/16 05/18/19 Clobetasol Propionate [Temovate 1 applic TOPICAL BID PRN 04/03/16 05/18/19 0.05% Cream] Levothyroxine Sodium [Synthroid] 75 mcg PO DAILY 04/03/16 05/18/19 Cholecalciferol [Vitamin D3] 2,000 unit PO DAILY 04/07/18 05/18/19 DULoxetine HCL [Cymbalta] 60 mg PO DAILY 04/07/18 05/18/19 Isosorbide Mononitrate ER [Imdur] 15 mg PO DAILY 04/07/18 05/18/19 Magnesium Oxide [Mag-Ox] 250 mg PO DAILY 04/07/18 05/18/19 Montelukast [Singulair] 10 mg PO DAILY 04/07/18 05/18/19 Sucralfate [Carafate] 1 gm PO DAILY 04/07/18 05/18/19 Gabapentin [Neurontin] 300 mg PO HS 04/28/18 05/18/19 Fexofenadine HCl [Fang Allergy] 180 mg PO DAILY 05/18/19 05/18/19 Previous Rx's Medication Instructions Recorded Aspirin 81 mg PO DAILY #1 chewable 04/05/16 Levofloxacin 500 mg PO DAILY 5 Days #5 tablet 05/17/19 Ondansetron Odt [Zofran Odt] 4 mg PO Q8HR PRN #10 tab 05/17/19 metroNIDAZOLE [Flagyl] 500 mg PO BID 5 Days #10 tab 05/17/19 Allergies Allergy/AdvReac Type Severity Reaction Status Date / Time aspirin Allergy Abdominal Verified 05/18/19 17:44 Pain nickel Allergy itching, Verified 05/18/19 17:44 rash Penicillins Allergy Rash/Hives Verified 05/18/19 17:44 Review of Systems ROS Statement: Those systems with pertinent positive or pertinent negative responses have been documented in the HPI. ROS Other: All systems not noted in ROS Statement are negative. Past Medical History Past Medical History: Asthma, GERD/Reflux, Mitral Valve Prolapse (MVP), Pneumonia, Skin Disorder, Thyroid Disorder Additional Past Medical History / Comment(s): HIATAL HERNIA, IBS, COLITIS LONG TIME AGO, STRESS INCONT OF URINE. occ migraines, dermatitis, heart palpitations History of Any Multi-Drug Resistant Organisms: MRSA Date of last positivie culture/infection: 2010 MDRO Source:: knee-2008, rt thumb 2010 Past Surgical History: Adenoidectomy, Breast Surgery, Section, Cholecystectomy, Orthopedic Surgery, Tonsillectomy Additional Past Surgical History / Comment(s): RT knee ACL surgery, RT GREAT TOE FUSION,, jeanine carpel tunnel, nose/sinusl surgery, jeanine bunionectom(rt x 2), surgery for tubal , left breast lumpectomy Past Anesthesia/Blood Transfusion Reactions: Previous Problems w/ Anesthesia Additional Past Anesthesia/Blood Transfusion Reaction / Comment(s): woke up during surgery Past Psychological History: Anxiety Smoking Status: Current every day smoker Past Alcohol Use History: Occasional Past Drug Use History: None Reported - Past Family History Mother Family Medical History: Cancer Additional Family Medical History / Comment(s): MULTIPLE MYELOMA Father Family Medical History: Cancer Additional Family Medical History / Comment(s): skin cancer General Exam Limitations: no limitations General appearance: alert, in no apparent distress Head exam: Present: atraumatic, normocephalic, normal inspection Eye exam: Present: normal appearance, EOMI. Absent: scleral icterus, conjunctival injection, periorbital swelling ENT exam: Present: normal exam, mucous membranes dry Neck exam: Present: normal inspection. Absent: tenderness, meningismus, lymphadenopathy Respiratory exam: Present: normal lung sounds bilaterally. Absent: respiratory distress, wheezes, rales, rhonchi, stridor Cardiovascular Exam: Present: regular rate, normal rhythm, normal heart sounds. Absent: systolic murmur, diastolic murmur, rubs, gallop, clicks GI/Abdominal exam: Present: soft, normal bowel sounds. Absent: distended, tenderness, guarding, rebound, rigid Extremities exam: Present: normal inspection, full ROM, normal capillary refill. Absent: tenderness, pedal edema, joint swelling, calf tenderness Back exam: Present: normal inspection Neurological exam: Present: alert, oriented X3, CN II-XII intact Psychiatric exam: Present: normal affect, normal mood Skin exam: Present: warm, dry, intact, normal color. Absent: rash Course Vital Signs 05/18/19 15:06 Temperature 99.3 F Pulse Rate 97 Respiratory 18 Rate Blood Pressure 92/61 O2 Sat by Pulse 97 Oximetry - Reevaluation(s) Reevaluation #1: 05/18/19 17:48 Medical record including answers ER visit is reviewed Reevaluation #2: 05/18/19 18:08 Patient not feeling better - Consultations Consultation #1: spoke w Dr Dalton and OK for admission Medical Decision Making - Medical Decision Making 58 female the ER for evaluation resents today for evaluation regarding to felt outpatient treatment of colitis was seen here in the ER yesterday given outpatient management with pain meds nausea meds and unable to keep anything down increasing dehydration with significant diarrhea, greater than 10 times in the last day. Patient will be admitted for continued hydration and we will C. diff testing of stool Disposition Clinical Impression: Colitis, Failure of outpatient treatment Disposition: ADMITTED IP TO THIS HOSP Condition: Fair Is patient prescribed a controlled substance at d/c from ED?: No Referrals: Orville Gutierrez DO [Primary Care Provider] - 1-2 days
[2019-05-18 18:08] LABS: Appearance,Urine Clear (Clear); Bacteria,Urine Rare /hpf; Bilirubin,Urine Negative (Negative); Blood,Urine Moderate (Negative); Color,Urine Yellow; Glucose,Urine (UA) Negative (Negative); Ketones,Urine 1+ (Negative); Leukocyte Esterase,Urine Trace (Negative); Mucus,Urine Rare /hpf; Nitrite,Urine Negative (Negative); Protein,Urine Negative (Negative); RBC,Urine 16 /hpf (0-5); Specific Gravity,Urine 1.007 (1.001-1.035); Squamous Epithelial Cell,Urine 1 /hpf (0-4); Urobilinogen,Urine <2.0 mg/dL (<2.0)
[2019-05-18 18:46] LABS: Basophils # (A) 0.1 k/uL (0-0.2); Basophils % (A) 1 %; Eosinophils # (A) 0.2 k/uL (0-0.7); Eosinophils % (A) 1 %; HCT 44.4 % (34.0-46.0); HGB 14.9 gm/dL (11.4-16.0); Lymphocytes # (A) 1.5 k/uL (1.0-4.8); Lymphocytes % (A) 9 %; MCH 32.1 pg (25.0-35.0); MCHC 33.5 g/dL (31.0-37.0); MCV 95.7 fL (80.0-100.0); Mean Platelet Volume 7.1; Monocytes # (A) 1.2 k/uL (0-1.0); Monocytes % (A) 7 %; Neutrophils # (A) 13.9 k/uL (1.3-7.7); Neutrophils % (A) 82 %; Platelet Count 387 k/uL (150-450); RBC 4.64 m/uL (3.80-5.40); RDW 13.4 % (11.5-15.5)
[2019-05-18 19:06] LABS: ALT 31 U/L (9-52); AST 24 U/L (14-36); African American GFR (CKD) >90 (>60 ml/min/1.73 sqM); Albumin 3.8 g/dL (3.5-5.0); Alkaline Phosphatase 143 U/L (38-126); Amylase 44 U/L (30-110); Anion Gap 9 mmol/L; Blood Urea Nitrogen 6 mg/dL (7-17); Calcium 9.2 mg/dL (8.4-10.2); Carbon Dioxide 27 mmol/L (22-30); Chloride 103 mmol/L (98-107); Creatine Kinase 25 U/L (30-135); Glucose 103 mg/dL (74-99); Potassium 3.8 mmol/L (3.5-5.1); Sodium 139 mmol/L (137-145); Total Bilirubin 0.4 mg/dL (0.2-1.3); Total Protein 6.7 g/dL (6.3-8.2)
[2019-05-18] MEDS ORDERED: MORPHINE SULFATE 4 MG/ML SYRINGE IVP STA (21:22)
[2019-05-18 22:21] VITALS: BMI 25.4
[2019-05-18] MEDS ORDERED: ONDANSETRON 4 MG/2 ML VIAL IVP PRN (22:47)
[2019-05-18] MEDS ORDERED: CLOBETASOL PROP 0.05% CR 15GM TOPICAL PRN (22:48)
[2019-05-18] MEDS ORDERED: ALBUTEROL NEBULIZED 2.5 MG/3 ML INHALATION PRN (22:48)
[2019-05-18] MEDS: GABAPENTIN 300 MG CAP PO SCH (22:57)
[2019-05-18] MEDS: LACTATED RINGERS 1,000 ML IV SCH (22:57)
[2019-05-18] MEDS: ACETAMINOPHEN TAB 325 MG TAB PO PRN (23:03)
[2019-05-19] MEDS: metroNIDAZOLE-NS PMX 500 MG in SALINE 1 100ML.BAG IVPB SCH ×4 (00:29→23:19)
[2019-05-19] MEDS: MORPHINE SULFATE 2 MG/ML SYRINGE IVP PRN (03:11)
[2019-05-19] MEDS: ACETAMINOPHEN TAB 325 MG TAB PO PRN (05:17)
[2019-05-19] MEDS: LEVOTHYROXINE 75 MCG TAB PO SCH (05:17)
[2019-05-19] MEDS: MONTELUKAST 10 MG TAB PO SCH (07:50)
[2019-05-19] MEDS: LORATADINE 10 MG TAB PO SCH (07:51)
[2019-05-19] MEDS: SUCRALFATE 1 GM TAB PO SCH (07:51)
[2019-05-19] MEDS: ASPIRIN 81 MG PO SCH (07:51)
[2019-05-19] MEDS: NICOTINE 14MG/24HR PATCH TRANSDERM SCH (07:51)
[2019-05-19] MEDS: ASCORBIC ACID 500 MG TAB PO SCH (07:51)
[2019-05-19] MEDS: ISOSORBIDE MONONITRATE ER 30 MG TAB.ER.24H PO SCH (07:52)
[2019-05-19] MEDS: LACTATED RINGERS 1,000 ML IV SCH ×3 (07:52→23:23)
[2019-05-19] MEDS: DULoxetine HCL 60 MG CAPSULE.DR PO SCH (07:53)
[2019-05-19] MEDS ORDERED: CHOLECALCIFEROL 1,000 UNIT TAB PO SCH (09:00)
[2019-05-19] MEDS ORDERED: NON FORMULARY DRUG (Magnesium Oxide 250 MG) PO SCH (09:00)
[2019-05-19] MEDS ORDERED: LEVOFLOXACIN 750MG-D5W PMX 750 MG in DEXTROSE/WATER 1 150ML.BAG IVPB SCH (18:00)
--- NOTE | 2019-05-19 20:54 | P.HPIM ---
History of Present Illness H&P Date: 05/19/19 Chief Complaint: Abdominal pain History of presenting complaint: This is a pleasant 58-year-old patient of Dr. Sherin Gutierrez. Chronic stable medical conditions include COPD, GERD, hypothyroid, hiatal hernia, irritable bowel syndrome, urinary stress incontinence. Patient's been having abdominal pain on and off for about 2 weeks progressively getting worse. Has had some nausea vomiting to able to keep some food down. Also been having fevers. Also started having loose stools about 4-7 a day. No blood was noted. Has started to get weak and tired. Did come on to the ER 2 days ago. Did do computed tomography scan of the abdomen. That did show some thickening of the colon and ascending transfer and upper part of the descending colon. Patient was sent home on Levaquin and Flagyl. Patient's symptoms don't improve she decided to come in again. Admitted for the same does feel weak tired rundown. Review of systems: GEN.: Fever or chills tired EYES: None HEENT: None NECK: None RESPIRATORY: None CARDIOVASCULAR: None GASTROINTESTINAL: As above GENITOURINARY: None MUSCULOSKELETAL: joint pains LYMPHATICS: None HEMATOLOGICAL: None PSYCHIATRY: None NEUROLOGICAL: None Social history: . Smokes half a pack a day. Alcohol occasionally Physical examination: VITAL SIGNS: 101.437, 16, 97/57, 97% room air GENERAL: BMI 25.4, laying in bed, tired appearing. EYES: Pupils equal. Conjunctiva normal. HEENT: External appearance of nose and ears normal, oral cavity grossly normal. NECK: JVD not raised; masses not palpable. HEART: First and second heart sounds are normal; no edema. LUNGS: Respiratory rate normal; clear to auscultation. ABDOMEN: Soft, diffuse tenderness, no guarding or rigidity, liver spleen not palpable, no masses palpable. PSYCH: Alert and oriented x3; mood and affect a bit anxiousl. NEUROLOGICAL: Cranial nerves grossly intact; no facial asymmetry, power and sensation grossly intact. LYMPHATICS: No lymph nodes palpable in the axilla and neck INVESTIGATIONS, reviewed in the clinical context: White count 17 hemoglobin 14.9 potassium 3.8 creatinine 0.63 C. diff stool-negative Computed tomography scan of the abdomen from May 17 shows thickening of the ascending transfer from upper part of the descending colon Assessment -Acute colitis possibly ischemic, cannot rule out infective colitis affecting the ascending transfer and upper part of the descending colon, having failed outpatient treatment with one-day of antibiotic., Causing sepsis -COPD in a current smoker -Hiatal hernia -Chronic urinary stress incontinence -Hypothyroid -Depression not otherwise specified Plan: Patient be switched over from Levaquin to IV cefepime. After getting IV Flagyl. Patient has been admitted. He remained stable being tried clear liquids later today. Other home medications resumed. Lovenox for DVT prophylaxis. Care was discussed with the patient question were answered. Repeat labs Past Medical History Past Medical History: Asthma, GERD/Reflux, Mitral Valve Prolapse (MVP), Pneumonia, Skin Disorder, Thyroid Disorder Additional Past Medical History / Comment(s): HIATAL HERNIA, IBS, COLITIS LONG TIME AGO, STRESS INCONT OF URINE. occ migraines, dermatitis, heart palpitations History of Any Multi-Drug Resistant Organisms: MRSA Date of last positivie culture/infection: 2010 MDRO Source:: knee-2008, rt thumb 2010 Past Surgical History: Adenoidectomy, Breast Surgery, Section, Cholecystectomy, Orthopedic Surgery, Tonsillectomy Additional Past Surgical History / Comment(s): RT knee ACL surgery, RT GREAT T OE FUSION,, jeanine carpel tunnel, nose/sinus surgery, jeanine bunionectom(rt x 2), surgery for tubal , left breast lumpectomy. Past Anesthesia/Blood Transfusion Reactions: Previous Problems w/ Anesthesia Additional Past Anesthesia/Blood Transfusion Reaction / Comment(s): woke up during surgery Past Psychological History: Anxiety, Depression Smoking Status: Current every day smoker Past Alcohol Use History: Occasional Additional Past Alcohol Use History / Comment(s): STARTED SMOKING AT AGE 14, SMOKES 1/2 PPD Past Drug Use History: None Reported - Past Family History Mother Family Medical History: Cancer Additional Family Medical History / Comment(s): MULTIPLE MYELOMA Father Family Medical History: Cancer Additional Family Medical History / Comment(s): skin cancer Medications and Allergies Home Medications Medication Instructions Recorded Confirmed Type Albuterol Sulfate [Proair Hfa] 2 puff INHALATION RT-Q8H PRN 04/03/16 05/18/19 History Ascorbic Acid [Vitamin C] 1,000 mg PO DAILY 04/03/16 05/18/19 History Clobetasol Propionate [Temovate 1 applic TOPICAL BID PRN 04/03/16 05/18/19 History 0.05% Cream] Levothyroxine Sodium [Synthroid] 75 mcg PO DAILY 04/03/16 05/18/19 History Aspirin 81 mg PO DAILY #1 chewable 04/05/16 05/18/19 Rx Cholecalciferol [Vitamin D3] 2,000 unit PO DAILY 04/07/18 05/18/19 History DULoxetine HCL [Cymbalta] 60 mg PO DAILY 04/07/18 05/18/19 History Isosorbide Mononitrate ER [Imdur] 15 mg PO DAILY 04/07/18 05/18/19 History Magnesium Oxide [Mag-Ox] 250 mg PO DAILY 04/07/18 05/18/19 History Montelukast [Singulair] 10 mg PO DAILY 04/07/18 05/18/19 History Sucralfate [Carafate] 1 gm PO DAILY 04/07/18 05/18/19 History Gabapentin [Neurontin] 300 mg PO HS 04/28/18 05/18/19 History Ondansetron Odt [Zofran Odt] 4 mg PO Q8HR PRN #10 tab 05/17/19 05/18/19 Rx Fexofenadine HCl [Fang Allergy] 180 mg PO DAILY 05/18/19 05/18/19 History Allergies Allergy/AdvReac Type Severity Reaction Status Date / Time aspirin Allergy Abdominal Verified 05/18/19 17:44 Pain nickel Allergy itching, Verified 05/18/19 17:44 rash Penicillins Allergy Rash/Hives Verified 05/18/19 17:44 Physical Exam Vitals: Vital Signs Temp Pulse Pulse Pulse Resp BP BP 05/19/19 08:00 18 05/19/19 05:27 101.5 F H 95 24 05/19/19 03:10 101.3 F H 05/19/19 00:37 100.1 F H 05/18/19 23:01 101.4 F H 05/18/19 22:28 100.7 F H 97 16 101/54 05/18/19 21:40 99.6 F 87 18 97/57 05/18/19 15:06 99.3 F 97 18 92/61 BP Pulse Ox 05/19/19 08:00 05/19/19 05:27 97/59 92 L 05/19/19 03:10 05/19/19 00:37 05/18/19 23:01 05/18/19 22:28 97 05/18/19 21:40 95 05/18/19 15:06 97 Intake and Output 05/18/19 05/19/19 05/19/19 22:59 06:59 14:59 Output Total 3 Balance -3 Output: Urine 3 Other: Voiding Method Toilet Weight 65.1 kg Results CBC & Chem 7: 05/18/19 17:45 05/18/19 17:45 Labs: Abnormal Lab Results - Last 24 Hours (Table) 05/18/19 05/18/19 05/18/19 Range/Units 17:45 17:45 17:50 WBC 17.0 H (3.8-10.6) k/uL Neutrophils # 13.9 H (1.3-7.7) k/uL Monocytes # 1.2 H (0-1.0) k/uL BUN 6 L (7-17) mg/dL Glucose 103 H (74-99) mg/dL Alkaline Phosphatase 143 H (38-126) U/L Creatine Kinase 25 L (30-135) U/L Urine Ketones 1+ H (Negative) Urine Blood Moderate H (Negative) Ur Leukocyte Esterase Trace H (Negative) Urine RBC 16 H (0-5) /hpf Urine Bacteria Rare H (None) /hpf Urine Mucus Rare H (None) /hpf Microbiology - Last 24 Hours (Table) 05/18/19 09:30 Stool Culture - Preliminary Stool Thrombosis Risk Factor Assmnt - Choose All That Apply Any of the Below Risk Factors Present?: Yes Each Factor Represents 1 point: Abnormal pulmonary function (COPD), Age 41-60 years Other Risk Factors: No Other congenital or acquired thrombophilia - If yes, enter type in comment: No Thrombosis Risk Factor Assessment Total Risk Factor Score: 2 Thrombosis Risk Factor Assessment Level: Low Risk
[2019-05-19] MEDS: GABAPENTIN 300 MG CAP PO SCH (21:03)
[2019-05-19] MEDS: ENOXAPARIN 40 MG/0.4 ML SYRINGE SQ SCH (21:03)
[2019-05-19 21:24] LABS: HCT 38.1 % (34.0-46.0); MCH 32.4 pg (25.0-35.0); MCHC 34.1 g/dL (31.0-37.0); Mean Platelet Volume 7.4; Platelet Count 307 k/uL (150-450); RBC 4.01 m/uL (3.80-5.40); RDW 13.2 % (11.5-15.5); WBC 12.4 k/uL (3.8-10.6)
[2019-05-20] MEDS: LEVOTHYROXINE 75 MCG TAB PO SCH (06:22)
[2019-05-20] MEDS: metroNIDAZOLE-NS PMX 500 MG in SALINE 1 100ML.BAG IVPB SCH ×2 (07:36→16:14)
[2019-05-20] MEDS: LACTATED RINGERS 1,000 ML IV SCH ×3 (07:37→22:12)
[2019-05-20] MEDS: CEFEPIME 2 GM in SODIUM CHLORIDE 0.9% 100 ML IVPB SCH ×2 (08:22→22:10)
[2019-05-20] MEDS: NICOTINE 14MG/24HR PATCH TRANSDERM SCH (08:23)
[2019-05-20] MEDS: ISOSORBIDE MONONITRATE ER 30 MG TAB.ER.24H PO SCH (08:23)
[2019-05-20] MEDS: ENOXAPARIN 40 MG/0.4 ML SYRINGE SQ SCH (08:23)
[2019-05-20] MEDS: ASCORBIC ACID 500 MG TAB PO SCH (08:23)
[2019-05-20] MEDS: ASPIRIN 81 MG PO SCH (08:23)
[2019-05-20] MEDS: MONTELUKAST 10 MG TAB PO SCH (08:23)
[2019-05-20] MEDS: SUCRALFATE 1 GM TAB PO SCH (08:23)
[2019-05-20] MEDS: DULoxetine HCL 60 MG CAPSULE.DR PO SCH (08:23)
[2019-05-20] MEDS: LORATADINE 10 MG TAB PO SCH (08:23)
[2019-05-20 08:58] LABS: HGB 13.5 gm/dL (11.4-16.0); MCH 30.8 pg (25.0-35.0); MCHC 32.2 g/dL (31.0-37.0); MCV 95.6 fL (80.0-100.0); Mean Platelet Volume 7.4; Platelet Count 396 k/uL (150-450); RBC 4.39 m/uL (3.80-5.40); RDW 13.2 % (11.5-15.5); WBC 12.3 k/uL (3.8-10.6)
[2019-05-20 09:05] LABS: African American GFR (CKD) >90 (>60 ml/min/1.73 sqM); Anion Gap 14 mmol/L; Blood Urea Nitrogen 4 mg/dL (7-17); Calcium 8.4 mg/dL (8.4-10.2); Carbon Dioxide 21 mmol/L (22-30); Chloride 103 mmol/L (98-107); Glucose 161 mg/dL (74-99); Potassium 3.4 mmol/L (3.5-5.1); Sodium 138 mmol/L (137-145)
--- NOTE | 2019-05-20 20:01 | P.PN ---
Progress Note - Text Progress Note Date: 05/20/19 Chief Complaint: Abdominal pain Interval history: This is a pleasant 58-year-old patient of Dr. Sherin Gutierrez. Chronic stable medical conditions include COPD, GERD, hypothyroid, hiatal hernia, irritable bowel syndrome, urinary stress incontinence. Patient's been having abdominal pain on and off for about 2 weeks progressively getting worse. Has had some nausea vomiting to able to keep some food down. Also been having fevers. Also started having loose stools about 4-7 a day. No blood was noted. Has started to get weak and tired. Did come on to the ER 2 days ago. Did do computed tomography scan of the abdomen. That did show some thickening of the colon and ascending transfer and upper part of the descending colon. Patient was sent home on Levaquin and Flagyl. Patient's symptoms don't improve she decided to come in again. Admitted for the same does feel weak tired rundown. Admitted with acute colitis ischemic versus infectious. Today-. Spiriva. Decreased pain. Had 2 bowel movements. No nausea vomiting. No fever no chills. Feels overall better. Review of systems: Was done for constitutional, cardiovascular, GI, pulmonary. relevant finding as above Active Medications Acetaminophen (Tylenol Tab) 650 mg PO Q6HR PRN PRN Reason: Fever and/ or Pain Last Admin: 05/19/19 05:17 Dose: 650 mg Documented by: Albuterol Sulfate (Ventolin Nebulized) 2.5 mg INHALATION RT-Q8H PRN PRN Reason: Shortness Of Breath Last Admin: 05/20/19 15:25 Dose: 2.5 mg Documented by: Ascorbic Acid (Vitamin C) 1,000 mg PO DAILY [facility] Last Admin: 05/20/19 08:23 Dose: 1,000 mg Documented by: Aspirin (Aspirin) 81 mg PO DAILY [facility] Last Admin: 05/20/19 08:23 Dose: 81 mg Documented by: Clobetasol Propionate (Temovate) 1 applic TOPICAL BID PRN PRN Reason: DERMATITIS Duloxetine HCl (Cymbalta) 60 mg PO DAILY [facility] Last Admin: 05/20/19 08:23 Dose: 60 mg Documented by: Enoxaparin Sodium (Lovenox) 40 mg SQ DAILY [facility] Last Admin: 05/20/19 08:23 Dose: 40 mg Documented by: Gabapentin (Neurontin) 300 mg PO HS [facility] Last Admin: 05/19/19 21:03 Dose: 300 mg Documented by: Metronidazole 500 mg/ IV (Solution) 100 mls @ 100 mls/hr IVPB Q8HR [facility] Last Admin: 05/20/19 16:14 Dose: 100 mls/hr Documented by: Lactated Ringer's (Lactated Ringers) 1,000 mls @ 125 mls/hr IV .Q8H [facility] Last Admin: 05/20/19 16:12 Dose: 125 mls/hr Documented by: Cefepime HCl 2 gm/ Sodium (Chloride) 100 mls @ 200 mls/hr IVPB Q12HR [facility] Last Admin: 05/20/19 08:22 Dose: 200 mls/hr Documented by: Isosorbide Mononitrate (Imdur) 15 mg PO DAILY [facility] Last Admin: 05/20/19 08:23 Dose: 15 mg Documented by: Levothyroxine Sodium (Synthroid) 75 mcg PO DAILY@0630 [facility] Last Admin: 05/20/19 06:22 Dose: 75 mcg Documented by: Loratadine (Claritin) 10 mg PO DAILY [facility] Last Admin: 05/20/19 08:23 Dose: 10 mg Documented by: Montelukast Sodium (Singulair) 10 mg PO DAILY [facility] Last Admin: 05/20/19 08:23 Dose: 10 mg Documented by: Morphine Sulfate (Morphine Sulfate (Inj)) 2 mg IVP Q4H PRN PRN Reason: Pain/Discomfort Last Admin: 05/19/19 03:11 Dose: 2 mg Documented by: Nicotine (Habitrol 14mg/24hr Patch) 1 patch TRANSDERM DAILY [facility] Last Admin: 05/20/19 08:23 Dose: 1 patch Documented by: Ondansetron HCl (Zofran) 4 mg IVP Q6HR PRN PRN Reason: Nausea And Vomiting Sucralfate (Carafate) 1 gm PO DAILY [facility] Last Admin: 05/20/19 08:23 Dose: 1 gm Documented by: Physical examination: VITAL SIGNS: 99, 78, 20, 104/68, 95% GENERAL: Laying in bed, appearing more comfortable. EYES: Pupils equal. Conjunctiva normal. HEENT: External appearance of nose and ears normal, oral cavity grossly normal. NECK: JVD not raised; masses not palpable. HEART: First and second heart sounds are normal; no edema. LUNGS: Respiratory rate normal; clear to auscultation. ABDOMEN: Soft, no tenderness, no guarding or rigidity, liver spleen not palpable, no masses palpable. PSYCH: Alert and oriented x3; mood and affect a bit anxiousl. INVESTIGATIONS, reviewed in the clinical context: White count 12.3 hemoglobin 10.5 potassium 3.4 creatinine 0.51 Previous testing White count 17 hemoglobin 14.9 potassium 3.8 creatinine 0.63 C. diff stool-negative Computed tomography scan of the abdomen from May 17 shows thickening of the ascending transfer from upper part of the descending colon Assessment -Acute colitis possibly ischemic, cannot rule out infective colitis affecting the ascending transfer and upper part of the descending colon, having failed outpatient treatment with one-day of antibiotic., Causing sepsis. Improving -COPD in a current smoker -Hiatal hernia -Chronic urinary stress incontinence -Hypothyroid -Depression not otherwise specified Plan: Continue IV cefepime and IV Flagyl. Patient is clinically looking better. Discussed with the patient. Keep IV fluids. Patient is on clear liquids today. Advance to full liquids later today. If tolerated. Advance to a soft bland diet in the morning.
[2019-05-20] MEDS ORDERED: POTASSIUM CHLORIDE ER 20 MEQ TAB.ER PO STA (20:02)
[2019-05-20] MEDS: MORPHINE SULFATE 2 MG/ML SYRINGE IVP PRN (21:54)
[2019-05-20] MEDS: GABAPENTIN 300 MG CAP PO SCH (22:09)
[2019-05-21] MEDS: metroNIDAZOLE-NS PMX 500 MG in SALINE 1 100ML.BAG IVPB SCH ×2 (00:33→07:37)
[2019-05-21] MEDS: LEVOTHYROXINE 75 MCG TAB PO SCH (05:37)
[2019-05-21] MEDS: ISOSORBIDE MONONITRATE ER 30 MG TAB.ER.24H PO SCH (07:36)
[2019-05-21] MEDS: DULoxetine HCL 60 MG CAPSULE.DR PO SCH (07:36)
[2019-05-21] MEDS: ASPIRIN 81 MG PO SCH (07:37)
[2019-05-21] MEDS: LORATADINE 10 MG TAB PO SCH (07:37)
[2019-05-21] MEDS: ENOXAPARIN 40 MG/0.4 ML SYRINGE SQ SCH (07:37)
[2019-05-21] MEDS: SUCRALFATE 1 GM TAB PO SCH (07:37)
[2019-05-21] MEDS: NICOTINE 14MG/24HR PATCH TRANSDERM SCH (07:37)
[2019-05-21] MEDS: ASCORBIC ACID 500 MG TAB PO SCH (07:37)
[2019-05-21] MEDS: MONTELUKAST 10 MG TAB PO SCH (07:37)
[2019-05-21] MEDS: CEFEPIME 2 GM in SODIUM CHLORIDE 0.9% 100 ML IVPB SCH (08:34)
[2019-05-21 09:07] VITALS: TEMP 98.8
[2019-05-21] MEDS: LACTATED RINGERS 1,000 ML IV SCH (10:42)
[2019-05-21 12:24] VITALS: BP 94/59; PULSE 72; RESP 18
--- NOTE | 2019-05-21 21:06 | P.DS ---
Providers Date of admission: 05/18/19 18:06 Expected date of discharge: 05/21/19 Attending physician: Mane Dalton Primary care physician: Orville Gutierrez [facility] Course: Chief Complaint: Abdominal pain Interval history: This is a pleasant 58-year-old patient of Dr. Sherin Gutierrez. Chronic stable medical conditions include COPD, GERD, hypothyroid, hiatal hernia, irritable bowel syndrome, urinary stress incontinence. Patient's been having abdominal pain on and off for about 2 weeks progressively getting worse. Has had some nausea vomiting to able to keep some food down. Also been having fevers. Also started having loose stools about 4-7 a day. No blood was noted. Has started to get weak and tired. Did come on to the ER 2 days ago. Did do computed tomography scan of the abdomen. That did show some thickening of the colon and ascending transfer and upper part of the descending colon. Patient was sent home on Levaquin and Flagyl. Patient's symptoms don't improve she decided to come in again. Admitted for the same does feel weak tired rundown. Admitted with acute colitis ischemic versus infectious. Patient was treated with IV cefepime and IV Flagyl. Did much better. By today up and about in the hallway. Tolerating light pale. Abdominal pain resolved. No fever no chills. Had one loose stools. Feeling much better and very keen to go home. Patient is to follow for GI as an outpatient. Will need a colonoscopy. Patient advised to have soft bland diet. Physical examination: VITAL SIGNS: 98.8, 72, 18, 94/59, 93% room air GENERAL: Sitting up, comfortable EYES: Pupils equal. Conjunctiva normal. HEENT: External appearance of nose and ears normal, oral cavity grossly normal. NECK: JVD not raised; masses not palpable. HEART: First and second heart sounds are normal; no edema. LUNGS: Respiratory rate normal; clear to auscultation. ABDOMEN: Soft, no tenderness, no guarding or rigidity, liver spleen not palpable, no masses palpable. PSYCH: Alert and oriented x3; mood and affect normal INVESTIGATIONS, reviewed in the clinical context: White count 12.3 hemoglobin 13.5 Previous testing White count 17 hemoglobin 14.9 potassium 3.8 creatinine 0.63 C. diff stool-negative Computed tomography scan of the abdomen from May 17 shows thickening of the ascending transfer from upper part of the descending colon Assessment -Acute colitis possibly ischemic, cannot rule out infective colitis affecting the ascending transverse and the descending colon, having failed outpatient treatment with one-day of antibiotic., Causing sepsis. Much improved -COPD in a current smoker -Hiatal hernia -Chronic urinary stress incontinence -Hypothyroid -Depression not otherwise specified Plan: Home Patient Condition at Discharge: Stable Plan - Discharge Summary Discharge Rx Participant: No New Discharge Prescriptions: New Cefuroxime Axetil [Ceftin] 500 mg PO BID #14 tab metroNIDAZOLE [Flagyl] 500 mg PO Q8HR #21 tab Nicotine 14Mg/24Hr Patch [Habitrol] 1 patch TRANSDERM DAILY #14 patch Continue Levothyroxine Sodium [Synthroid] 75 mcg PO DAILY Clobetasol Propionate [Temovate 0.05% Cream] 1 applic TOPICAL BID PRN PRN Reason: DERMATITIS Ascorbic Acid [Vitamin C] 1,000 mg PO DAILY Albuterol Sulfate [Proair Hfa] 2 puff INHALATION RT-Q8H PRN PRN Reason: Shortness Of Breath Aspirin 81 mg PO DAILY #1 chewable Cholecalciferol [Vitamin D3 (25 Mcg = 1000 Iu)] 2,000 unit PO DAILY Isosorbide Mononitrate ER [Imdur] 15 mg PO DAILY Montelukast [Singulair] 10 mg PO DAILY DULoxetine HCL [Cymbalta] 60 mg PO DAILY Gabapentin [Neurontin] 300 mg PO HS Ondansetron Odt [Zofran ODT] 4 mg PO Q8HR PRN #10 tab PRN Reason: Nausea Fexofenadine HCl [Fang Allergy] 180 mg PO DAILY Discontinued Magnesium Oxide [Mag-Ox] 250 mg PO DAILY Sucralfate [Carafate] 1 gm PO DAILY Discharge Medication List Albuterol Sulfate [Proair Hfa] 2 puff INHALATION RT-Q8H PRN 04/03/16 [History] Ascorbic Acid [Vitamin C] 1,000 mg PO DAILY 04/03/16 [History] Clobetasol Propionate [Temovate 0.05% Cream] 1 applic TOPICAL BID PRN 04/03/16 [History] Levothyroxine Sodium [Synthroid] 75 mcg PO DAILY 04/03/16 [History] Aspirin 81 mg PO DAILY #1 chewable 04/05/16 [Rx] Cholecalciferol [Vitamin D3 (25 Mcg = 1000 Iu)] 2,000 unit PO DAILY 04/07/18 [History] DULoxetine HCL [Cymbalta] 60 mg PO DAILY 04/07/18 [History] Isosorbide Mononitrate ER [Imdur] 15 mg PO DAILY 04/07/18 [History] Montelukast [Singulair] 10 mg PO DAILY 04/07/18 [History] Gabapentin [Neurontin] 300 mg PO HS 04/28/18 [History] Ondansetron Odt [Zofran ODT] 4 mg PO Q8HR PRN #10 tab 05/17/19 [Rx] Fexofenadine HCl [Fang Allergy] 180 mg PO DAILY 05/18/19 [History] Cefuroxime Axetil [Ceftin] 500 mg PO BID #14 tab 05/21/19 [Rx] Nicotine 14Mg/24Hr Patch [Habitrol] 1 patch TRANSDERM DAILY #14 patch 05/21/19 [Rx] metroNIDAZOLE [Flagyl] 500 mg PO Q8HR #21 tab 05/21/19 [Rx] Follow up Appointment(s)/Referral(s): Mary Byers MD [STAFF PHYSICIAN] - 06/10/19 2:45 pm Orville Gutierrez DO [Primary Care Provider] - 05/28/19 11:30 am Patient Instructions/Handouts: Diverticulitis (DC), Diverticulitis Diet (DC) Activity/Diet/Wound Care/Special Instructions: No smoking, cessation information provided. soft bland diet Activity as tolerated. Discharge Disposition: HOME SELF-CARE
== END 2019-05-21 14:24 | disposition home or self-care (01) | DRG 872 ==
LOC: EC 14:48 → 4MS4W 18:06
PROVIDERS: ADMIT Hospitalist; ATTEND Hospitalist
DX: A41.9 Sepsis, unspecified organism (principal); A09 Infectious gastroenteritis and colitis, unspecified; K50.10 Crohn's disease of large intestine without complications; E03.9 Hypothyroidism, unspecified; F17.210 Nicotine dependence, cigarettes, uncomplicated; F32.9 Major depressive disorder, single episode, unspecified; F41.9 Anxiety disorder, unspecified; I34.1 Nonrheumatic mitral (valve) prolapse; J44.9 Chronic obstructive pulmonary disease, unspecified; K21.9 Gastro-esophageal reflux disease without esophagitis; K44.9 Diaphragmatic hernia without obstruction or gangrene; N39.3 Stress incontinence (female) (male); Z79.82 Long term (current) use of aspirin; Z79.890 Hormone replacement therapy; Z79.899 Other long term (current) drug therapy; Z80.7 Family history of other malignant neoplasms of lymphoid, hematopoietic and related tissues; Z80.8 Family history of malignant neoplasm of other organs or systems; Z88.6 Allergy status to analgesic agent; Z88.0 Allergy status to penicillin; Z91.048 Other nonmedicinal substance allergy status; Z90.49 Acquired absence of other specified parts of digestive tract; Z98.51 Tubal ligation status
CPT/HCPCS: 36415; 80048; 80053; 81001; 82150; 82550; 83630; 83690; 85025; 85027; 87040; 87045; 87046; 87324; 94640; 96365; 96366; 96367; 96375; 96376; 99285

== ENCOUNTER → 2019-07-02 | Outpatient (CLI) | payer OTHER ==
[2019-07-02 14:18] LABS: HCT 49.6 % (34.0-46.0); HGB 15.9 gm/dL (11.4-16.0); MCH 30.3 pg (25.0-35.0); MCV 94.7 fL (80.0-100.0); Mean Platelet Volume 7.4; Platelet Count 355 k/uL (150-450); RBC 5.24 m/uL (3.80-5.40); RDW 13.2 % (11.5-15.5); WBC 10.8 k/uL (3.8-10.6)
[2019-07-02 15:25] LABS: Erythrocyte Sedimentation Rate 2 mm/hr (0-20)
[2019-07-02 18:32] LABS: ALT 28 U/L (8-44); AST 24 U/L (13-35); African American GFR (CKD) 109.1 (60.0-200.0); Albumin/Globulin Ratio 2.25 (1.60-3.17); Alkaline Phosphatase 121 U/L (41-126); BUN/Creat Ratio 18.57 Ratio (12.00-20.00); C Reactive Protein <0.4 mg/dL (0.0-0.8); Calcium 9.8 mg/dL (8.7-10.3); Carbon Dioxide 29.8 mmol/L (21.6-31.8); Chloride 104 mmol/L (96-109); Glucose 93 mg/dL (70-110); Non-African American GFR(CKD) 94.2 (60.0-200.0); Potassium 4.4 mmol/L (3.5-5.5); Sodium 141 mmol/L (135-145); Total Bilirubin 0.5 mg/dL (0.3-1.2); Total Protein 6.5 g/dL (6.2-8.2)
[2019-07-02 19:47] LABS: Gliadin AB IgA, Deaminated NEGATIVE (NEGATIVE); Gliadin AB IgA, Unit <0.2 U/mL; Gliadin AB IgG, Deaminated NEGATIVE (NEGATIVE)
== END | disposition home or self-care (01) ==
LOC: LABWHC1 13:01
PROVIDERS: ATTEND Nurse Practitioner
DX: K52.9 Noninfective gastroenteritis and colitis, unspecified (principal)
CPT/HCPCS: 36415; 80053; 82272; 83516; 83993; 85027; 85652; 86140; 87045; 87046; 87324; 87328; 87329

== ENCOUNTER 2019-07-13 08:31 | Day surgery (SDC) | payer OTHER ==
[2019-07-08 16:16] VITALS: BMI 24.7
[~2019-07-13 08:31] MED LIST changes: -DEXAMETHASONE SOD PHOSPHATE 10 MG/ML 1 ML VIAL IV ONE; -FAMOTIDINE 20 MG/2 ML VIAL IV PRN; -HEPARIN SODIUM,PORCINE 5,000 UNIT/ML 1 ML VIAL SQ ONE; -HYDROmorphone 0.5 MG/0.5 ML SYRINGE IVP PRN; +LACTATED RINGERS 1,000 ML IV SCH; +LIDOCAINE 1% 20 ML VIAL (10MG/ML) FOR IV START INTRADERMA PRN; -MORPHINE SULFATE 4 MG/ML SYRINGE IV PRN; -ONDANSETRON 4 MG/2 ML VIAL IVP ONE; -ONDANSETRON 4 MG/2 ML VIAL IVP PRN; -ceFAZolin IN SWFI 2 GM/20 ML SYRINGE IVP ONE
[2019-07-13 08:53] VITALS: TEMP 97.2
[2019-07-13] MEDS ORDERED: PROPOFOL 10 MG/ML 20 ML VIAL IV ONE (09:11)
[2019-07-13] MEDS ORDERED: LIDOCAINE 1% INJ 10MG/ML (20 ML MDV) ONE (09:11)
[2019-07-13] MEDS ORDERED: IV FLUID CONTINUATION 1,000 ML IV ONE (09:47)
--- NOTE | 2019-07-13 09:50 | P.PCN ---
Date of Procedure: 07/13/19 Description of Procedure: BRIEF HISTORY: Patient is a 58-year-old female who presents for outpatient colonoscopy for follow-up after recent hospitalization for colitis. Patient presented to the hospital with complaints of abdominal pain and CT scan findings of possible colitis of the ascending and transverse colon. She has completed antibiotic course. She also reports intermittent loose stool over the past year which she associates to stress associated with taking care of her parents estate. PROCEDURE PERFORMED: Colonoscopy with biopsy . PREOPERATIVE DIAGNOSIS: Colitis, last colonoscopy 5 years ago ESTIMATED BLOOD LOSS: Minimal. IV sedation per Anesthesia. PROCEDURE: After informed consent was obtained, the patient, was brought into the endoscopy unit. IV sedation was administered by Anesthesia under continuous monitoring. Digital rectal examination was normal. Initially the Olympus CF-190 flexible video colonoscope was then inserted in the rectum, gradually advanced into the cecum without any difficulty. Careful examination was performed as the scope was gradually being withdrawn. Ileocecal valve and the appendiceal orifice were visualized and appeared normal. Prep was excellent. Mucosa of the cecum, ascending colon, transverse colon, descending colon, sigmoid colon, and rectum appeared normal With biopsies taken of the right and left colon in the setting of colitis on computed tomography scan. Terminal ileum was intubated and appeared normal with biopsies taken given altered bowel function. Retroflexion was performed in the rectum and no lesions were seen, low-grade internal hemorrhoids noted. The patient tolerated the procedure well. IMPRESSION: Normal-appearing colon from rectum to cecum, and normal-appearing terminal ileum with random biopsies taken of the right colon, left colon and terminal ileum. No mass, inflammation or evidence of colitis on colonoscopy. RECOMMENDATIONS: Findings of this examination were discussed with the patient and her . Okay to resume diet and medications. Await pathology from biopsies. Would recommend continuing screening colonoscopies at regular interval.
[2019-07-13 10:10] VITALS: BP 102/68; PULSE 78; RESP 18
== END 2019-07-13 10:18 | disposition home or self-care (01) ==
LOC: ORWHC2ENDO 08:31
PROVIDERS: ATTEND Internal Medicine
DX: K52.9 Noninfective gastroenteritis and colitis, unspecified (principal); K64.8 Other hemorrhoids; E78.5 Hyperlipidemia, unspecified; I34.1 Nonrheumatic mitral (valve) prolapse; G43.909 Migraine, unspecified, not intractable, without status migrainosus; J45.909 Unspecified asthma, uncomplicated; E07.9 Disorder of thyroid, unspecified; F39 Unspecified mood [affective] disorder; K21.9 Gastro-esophageal reflux disease without esophagitis; Z72.0 Tobacco use; Z88.6 Allergy status to analgesic agent; Z91.048 Other nonmedicinal substance allergy status; Z88.0 Allergy status to penicillin; Z79.899 Other long term (current) drug therapy; Z79.82 Long term (current) use of aspirin; Z79.890 Hormone replacement therapy; Z98.890 Other specified postprocedural states; Z90.49 Acquired absence of other specified parts of digestive tract; Z90.89 Acquired absence of other organs; Z97.2 Presence of dental prosthetic device (complete) (partial); Z91.89 Other specified personal risk factors, not elsewhere classified
CPT/HCPCS: 88305; 45380; J2001; J2704

== ENCOUNTER → 2020-04-14 | Outpatient (CLI) | payer OTHER ==
--- NOTE | 2020-04-14 10:27 | CTL ---
EXAMINATION TYPE: CT Low Dose Lung DATE OF EXAM ORDERED: 04/14/2020 HISTORY: Personal history of tobacco use. Lung cancer screening CT DLP: [address]DI: 1.9 mGy Automated exposure control for dose reduction was used. SCREENING VISIT: Yes COMPARISON: CT low dose lung screening 05/28/2017 TECHNIQUE: Low dose computed tomography scan was performed through the chest at 1 mm thick sections a nd reconstructed images in the coronal plane at [address] DIAGNOSTIC QUALITY: Satisfactory FINDINGS: LUNG NODULES: Present, detailed below: Left lower lobe solid nodule with a size of 3 mm, unchanged versus 05/28/2017, on image # CT Image sli de number [id number]. LUNGS: COPD: Severity: Moderate Fibrosis: Severity: Moderate Lymph nodes: None Other findings: None RIGHT PLEURAL SPACE: Effusion: None Calcification: None Thickening: Right apical scarring redemonstrated. Pneumothorax: None LEFT PLEURAL SPACE: Effusion: None Calcification: None Thickening: Left apical scarring redemonstrated. Pneumothorax: None HEART: Heart Size: Normal Coronary calcification: None Pericardial effusion: None OTHER FINDINGS: Upper abdomen: Post surgical change at the GE junction. Bony thorax: Degenerative changes of the thoracic spine. Supraclavicular region: No significant findings. Other: No significant findings. IMPRESSION: 3 mm left lower lobe pulmonary nodule unchanged since 2017, most likely benign. FOLLOW UP CT CHEST RECOMMENDATION: Annual low-dose lung screening CT. CT LUNG RAD: Lung-RADS 2-benign behavior or appearance
== END | disposition home or self-care (01) ==
LOC: RADCTMAIN 06:51
PROVIDERS: ATTEND Family Medicine
DX: Z12.2 Encounter for screening for malignant neoplasm of respiratory organs (principal); R91.1 Solitary pulmonary nodule

== ENCOUNTER 2020-12-10 17:29 | Emergency (ER) | payer OTHER ==
[2020-12-10 17:35] VITALS: RESP 18
[2020-12-10] MEDS ORDERED: IBUPROFEN 600 MG TAB PO STA (17:48)
--- NOTE | 2020-12-10 18:11 | ED ---
General Adult HPI - General Chief complaint: Extremity Injury, Lower Stated complaint: Toe injury Source: patient, RN notes reviewed Mode of arrival: ambulatory Limitations: no limitations - History of Present Illness Initial comments: 60-year-old female presents to the emergency room for left toe pain. Patient dropped a 3 pound weight on her left fifth toe yesterday. States it is bruised and painful. Patient wanted to make sure she didn't need it drained.Patient has no other complaints at this time including shortness of breath, chest pain, abdominal pain, nausea or vomiting, headache, or visual changes. - Related Data Home Medications Medication Instructions Recorded Confirmed Albuterol Sulfate [Proair Hfa] 2 puff INHALATION RT-Q8H PRN 04/03/16 07/13/19 Ascorbic Acid [Vitamin C] 1,000 mg PO DAILY 04/03/16 07/08/19 Clobetasol Propionate [Temovate 1 applic TOPICAL BID PRN 04/03/16 07/08/19 0.05% Cream] Levothyroxine Sodium [Synthroid] 75 mcg PO DAILY 04/03/16 07/08/19 Cholecalciferol [Vitamin D3 (25 2,000 unit PO DAILY 04/07/18 07/08/19 Mcg = 1000 Iu)] DULoxetine HCL [Cymbalta] 60 mg PO DAILY 04/07/18 07/08/19 Isosorbide Mononitrate ER [Imdur] 15 mg PO QAM 04/07/18 07/13/19 Montelukast [Singulair] 10 mg PO DAILY 04/07/18 07/08/19 Gabapentin [Neurontin] 300 mg PO HS 04/28/18 07/08/19 Fexofenadine HCl [Fang Allergy] 180 mg PO DAILY 05/18/19 07/08/19 Lipitor (Unknown Dose) 1 tab PO DAILY 07/08/19 07/08/19 Potassium Bicarbonate/Cit AC 25 meq PO DAILY 07/08/19 07/08/19 [Klor-Con 25 (Effer. Tab)] Previous Rx's Medication Instructions Recorded Aspirin 81 mg PO DAILY #1 chewable 04/05/16 Allergies Allergy/AdvReac Type Severity Reaction Status Date / Time aspirin Allergy Abdominal Verified 12/10/20 17:33 Pain nickel Allergy itching, Verified 12/10/20 17:33 rash Penicillins Allergy Rash/Hives Verified 12/10/20 17:33 Review of Systems ROS Statement: Those systems with pertinent positive or pertinent negative responses have been documented in the HPI. ROS Other: All systems not noted in ROS Statement are negative. Past Medical History Past Medical History: Asthma, GERD/Reflux, Hyperlipidemia, Mitral Valve Prolapse (MVP), Pneumonia, Skin Disorder, Thyroid Disorder Additional Past Medical History / Comment(s): Hx HIATAL HERNIA and Acid reflux, resolved with surgery. IBS, hx COLITIS A LONG TIME AGO, STRESS INCONTINENCE OF URINE, occasional migraines, dermatitis, heart palpitations, "low BP, cholestrol a little high." History of Any Multi-Drug Resistant Organisms: MRSA Date of last positivie culture/infection: 2010 MDRO Source:: knee-2008, rt thumb 2010 Past Surgical History: Adenoidectomy, Breast Surgery, Section, Cholecystectomy, Orthopedic Surgery, Tonsillectomy Additional Past Surgical History / Comment(s): RT knee ACL surgery, RT GREAT TOE FUSION, bilateral carpel tunnel, nose/sinus surgery, bilateral bunionectomy(right X2), surgery for tubal , left breast lumpectomy, Hiatal hernia surgery, surgery to correct Acid Reflux. Past Anesthesia/Blood Transfusion Reactions: Previous Problems w/ Anesthesia Additional Past Anesthesia/Blood Transfusion Reaction / Comment(s): "Woke up during surgery." Past Psychological History: Anxiety, Depression Smoking Status: Current every day smoker Past Alcohol Use History: Occasional Past Drug Use History: None Reported - Past Family History Mother Family Medical History: Cancer Additional Family Medical History / Comment(s): MULTIPLE MYELOMA. Father Family Medical History: Cancer, CVA/TIA Additional Family Medical History / Comment(s): Skin cancer. General Exam Limitations: no limitations General appearance: alert, in no apparent distress Head exam: Present: atraumatic, normocephalic, normal inspection Eye exam: Present: normal appearance, PERRL, EOMI. Absent: scleral icterus, conjunctival injection, periorbital swelling ENT exam: Present: normal exam, mucous membranes moist Neck exam: Present: normal inspection, full ROM. Absent: tenderness, meningismus, lymphadenopathy Respiratory exam: Present: normal lung sounds bilaterally. Absent: respiratory distress, wheezes, rales, rhonchi, stridor Cardiovascular Exam: Present: regular rate, normal rhythm, normal heart sounds. Absent: systolic murmur, diastolic murmur, rubs, gallop, clicks Extremities exam: Present: normal capillary refill (Capillary refill Less than 2 seconds. DP pulse 2+.), other (Ecchymosis of the dorsal aspect of the left fifth toe. There is no subungual hematoma. No tenderness in the left foot aside from the left fifth toe.) Course Vital Signs 12/10/20 17:33 Temperature 98.2 F Pulse Rate 86 Respiratory 18 Rate Blood Pressure 104/77 O2 Sat by Pulse 98 Oximetry Medical Decision Making - Medical Decision Making X-ray of the toe showed acute on his face fracture of the distal phalanx of the little toe left foot. Toe was сергей taped. Patient directed to take Motrin and Tylenol and rest ice and elevate the foot. Will follow up with primary care. She will return for any worsening symptoms. Disposition Clinical Impression: Fracture of distal phalanx of toe Disposition: HOME SELF-CARE Condition: Good Instructions (If sedation given, give patient instructions): Toe Fracture (ED) Additional Instructions: Please сергей tape the toes. Please take Motrin or Tylenol for pain. Rest ice and elevate the left foot. Please follow-up with your doctor. Return to the em ergency room for any worsening symptoms. Is patient prescribed a controlled substance at d/c from ED?: No Referrals: Orville Gutierrez DO [Primary Care Provider] - 1-2 days Time of Disposition: 18:41
--- NOTE | 2020-12-10 18:30 | XR ---
EXAMINATION TYPE: XR toes LT DATE OF EXAM: 12/10/2020 COMPARISON: NONE HISTORY: Dropped a weight on the foot. TECHNIQUE: 3 views FINDINGS: There is a nondisplaced fracture of the distal phalanx of the little toe left foot. There i s no dislocation. IMPRESSION: Acute nondisplaced fracture of the distal phalanx of the little toe left foot.
[2020-12-10 18:56] VITALS: BP 108/65; PULSE 78; TEMP 98.4
== END 2020-12-10 18:54 | disposition home or self-care (01) ==
LOC: EC 17:29
DX: S92.532A Displaced fracture of distal phalanx of left lesser toe(s), initial encounter for closed fracture (principal); E78.5 Hyperlipidemia, unspecified; J45.909 Unspecified asthma, uncomplicated; K21.9 Gastro-esophageal reflux disease without esophagitis; K58.9 Irritable bowel syndrome, unspecified; G43.909 Migraine, unspecified, not intractable, without status migrainosus; E78.00 Pure hypercholesterolemia, unspecified; F32.9 Major depressive disorder, single episode, unspecified; F41.9 Anxiety disorder, unspecified; F17.200 Nicotine dependence, unspecified, uncomplicated; Z79.82 Long term (current) use of aspirin; Z79.51 Long term (current) use of inhaled steroids; Z88.0 Allergy status to penicillin; W20.8XXA Other cause of strike by thrown, projected or falling object, initial encounter
CPT/HCPCS: 99283

== ENCOUNTER → 2021-04-26 | Outpatient (CLI) | payer OTHER ==
--- NOTE | 2021-04-26 12:03 | CTL ---
EXAMINATION TYPE: CT Low Dose Lung DATE OF EXAM ORDERED: 04/26/2021 COMPARISON: 04/14/2020 HISTORY: . Low Dose CT Lung Screening CT DLP: 59.[address] CTDI: 1.80 mGy IV CONTRAST USED: None. SCREENING VISIT: First visit COMPARISON: None. TECHNIQUE: Low dose computed tomography scan was performed through the chest at 1 millimeter thick se ctions and reconstructed images in the coronal plane at [address] DIAGNOSTIC QUALITY: Satisfactory FINDINGS: LUNG NODULES: Stable 3 mm left lower lobe pulmonary nodule. No additional nodules present. LUNGS: COPD: Severity: Mild. Parenchymal scarring right upper lobe and lingula remain stable. Fibrosis: Severity:None Lymph nodes: None Other findings: None RIGHT PLEURAL SPACE: Effusion: None Calcification: None Thickening: None Pneumothorax: None LEFT PLEURAL SPACE: Effusion: None Calcification: None Thickening: None Pneumothorax: None HEART: Heart Size: Mildly enlarged Coronary calcification: Mild Pericardial effusion: None OTHER FINDINGS: Upper abdomen: No significant abnormality Bony thorax: Degenerative changes Supraclavicular region: No significant abnormalityOther: No significant abnormalityI IMPRESSION: Benign FOLLOW UP CT CHEST RECOMMENDATION: Follow-up screening in one year CT LUNG RAD: LUNG RAD CATEGORY 2 benign
== END | disposition home or self-care (01) ==
LOC: RADCTMAIN 11:17
PROVIDERS: ATTEND Family Medicine
DX: Z12.2 Encounter for screening for malignant neoplasm of respiratory organs (principal); Z87.891 Personal history of nicotine dependence
CPT/HCPCS: 71271

== ENCOUNTER → 2021-12-18 | Outpatient (CLI) | payer OTHER ==
--- NOTE | 2021-12-18 15:42 | XR ---
EXAMINATION TYPE: XR chest 2V DATE OF EXAM: 12/18/2021 COMPARISON: 04/03/2016 HISTORY: 61-year-old female J44.1, bronchitis for a few months TECHNIQUE: Frontal and lateral views FINDINGS: The cardiomediastinal silhouette, aorta, and pulmonary vasculature are within normal limits. Mild hyp erinflation. Otherwise, lungs and pleural spaces are clear. IMPRESSION: Mild hyperinflation could reflect depth of inspiration or underlying emphysema. No acute cardiopulmon jignesh process.
== END | disposition home or self-care (01) ==
LOC: RADXRMAIN 12:15
PROVIDERS: ATTEND Family Medicine
DX: R91.8 Other nonspecific abnormal finding of lung field (principal)
CPT/HCPCS: 71046

== ENCOUNTER → 2022-10-14 | Outpatient (CLI) | payer OTHER ==
--- NOTE | 2022-10-14 21:15 | MR ---
EXAMINATION TYPE: MR brain wo/w con DATE OF EXAM: 10/14/2022 11:01 AM CLINICAL INDICATION:Female, 62 years old with history of H53.8; TUNNEL VISION AND FULL BODY TINGLING FOR 10 MINS COMPARISON: None TECHNIQUE: Multi planar, multi sequence imaging was performed through the brain including: T1, T2, In version recovery, susceptibility weighted imaging and gradient echo imaging and Diffusion weighted im aging. The patient was then given intravenous contrast and multi planar, T1 fat-saturation images wer e obtained. IV Contrast: 7ML cc Gadavist FINDINGS: Blooming artifact within the right occipital lobe gyrus measuring up to 5 mm demonstrating lower T1 s ignal than surrounding white matter as well as higher T2 signal than surrounding white matter. No pos tcontrast enhancement. The menard-white junctions, ventricular system, basal cisterns appear unremarkab le. Diffusion-weighted imaging shows no evidence of restricted diffusion to suggest acute/subacute in farct. Intracranial arterial flow voids are maintained. Midline structures show no abnormality. Few f oci of high T2 signal intensity are seen within the periventricular white matter. The susceptibility weighted images do not reveal any evidence for micro-hemorrhage. After administration of gadolinium, no abnormal enhancement is seen. The bone marrow signal is within normal limits. Paranasal sinuses and mastoid air cells: Trace right mastoid air cell high T2 signal. Visualized orbits: Orbital contents are intact. IMPRESSION: 1. Right occipital lobe probable cavernous hemangioma. 2. No evidence of intracranial mass, acute/subacute infarct, or abnormal enhancement. 3. Minimal nonspecific white matter changes, likely related to small vessel ischemic disease 4. Right mastoid air cell effusion.
== END | disposition home or self-care (01) ==
LOC: RADMRIMAIN 09:24
PROVIDERS: ATTEND Nurse Practitioner Family
DX: R90.82 White matter disease, unspecified (principal); H53.8 Other visual disturbances
CPT/HCPCS: 70553; A9585

== ENCOUNTER → 2022-10-14 | Outpatient (CLI) | payer OTHER ==
--- NOTE | 2022-10-14 12:04 | US ---
EXAMINATION TYPE: US carotid duplex BILAT DATE OF EXAM: 10/14/2022 COMPARISON: NONE CLINICAL HISTORY: R42 DIZZINESS. Previous smoker, current vapor. Dizziness. Hyperlipidemia. TECHNIQUE: Carotid duplex ultrasound examination. Indirect Doppler criteria was utilized. FINDINGS: EXAM MEASUREMENTS: RIGHT: Peak Systolic Velocity (PSV) cm/sec ----- Right CCA: 50.7 ----- Right ICA: 59.5 ----- Right ECA: 42.5 ICA/CCA ratio: 1.2 RIGHT: End Diastole cm/sec ----- Right CCA: 15.7 ----- Right ICA: 26.8 ----- Right ECA: 9.6 LEFT: Peak Systolic Velocity (PSV) cm/sec ----- Left CCA: 61.6 ----- Left ICA: 89.7 ----- Left ECA: 40.8 ICA/CCA ratio: 1.5 LEFT: End Diastole cm/sec ----- Left CCA: 18.8 ----- Left ICA: 32.5 ----- Left ECA: 32.5 VERTEBRALS (direction of flow): Right Vertebral: Antegrade Left Vertebral: Antegrade Rhythm: Normal MAJOR GIFTS DIRECTOR NOTES: Left ICA dives quickly posterior, appears tortuous. Limited visibility of left dis angel ICA. Left ICA/CCA ratio was 1.5. IMPRESSION: No hemodynamically significant stenosis within either internal carotid artery. Criteria for Assigning % of Stenosis / Diameter reduction (Estimation based on the indirect measurements of the internal carotid artery velocities (ICA PSV). 1. Normal (no stenosis)=ICA PSV < 125 cm/s: ratio < 2.0: ICA EDV<40 cm/s. 2. Less than 50% stenosis=ICA PSV < 125 cm/s: ratio < 2.0: ICA EDV<40 cm/s. 3. 50 to 69% stenosis=ICA PSV of 125 to 230 cm/s: ration 2.0 ? 4.0: ICA EDV 40-100 cm/s. 4. Greater than 70% stenosis to near occlusion= ICA PSV > 230 cm/s: ratio > 4.0: ICA EDV > 100 cm/s. 5. Near occlusion= ICA PSV velocities may be low or undetectable: variable ratio and ICA EDV. 6. Total occlusion=unable to detect flow.
== END | disposition home or self-care (01) ==
LOC: RADUSWWP 11:04
PROVIDERS: ATTEND Family Medicine
DX: R42 Dizziness and giddiness (principal); E78.5 Hyperlipidemia, unspecified; Z87.891 Personal history of nicotine dependence
CPT/HCPCS: 93880

== ENCOUNTER 2023-01-12 12:20 | Observation (INO) | payer OTHER ==
[2023-01-12] MEDS ORDERED: ONDANSETRON 4 MG/2 ML VIAL IVP STA (12:32)
[2023-01-12] MEDS ORDERED: SODIUM CHLORIDE 0.9% 500 ML 500 ML IV STA (12:32)
[2023-01-12] MEDS ORDERED: PANTOPRAZOLE 40 MG/10 ML VIAL IVP STA (12:32)
[2023-01-12] MEDS ORDERED: fentaNYL (PF) 50 MCG/ML 2 ML AMP IVP STA ×2 (12:33→13:59)
--- NOTE | 2023-01-12 12:40 | ED ---
Abdominal Pain HPI - General Chief Complaint: Abdominal Pain Stated Complaint: abd pain Time Seen by Provider: 01/12/23 12:26 Source: patient, RN notes reviewed, old records reviewed Mode of arrival: wheelchair - History of Present Illness Initial Comments: 62-year-old female presents to the emergency room with complaints of abdominal pain that started this morning. Describes as cramping and bloating with nausea and diarrhea. Denies any fevers. Stool is brown and watery. Denies any vomiting. No chest pain or shortness of breath. Patient states that she tried Pepto-Bismol and Gas-X with no relief. States has a history of abdominal infections but denies diverticulitis or colitis. Past surgical history of cholecystectomy and hiatal hernia repair. Medical history of GERD, asthma and hypothyroidism. MD Complaint: abdominal pain -: hour(s) Location: diffuse Radiation: none Severity scale (1-10): 10 Quality: cramping Consistency: constant Improves With: nothing Associated Symptoms: nausea, diarrhea, other (bloated) - Related Data Patient : No Home Medications Medication Instructions Recorded Confirmed Ascorbic Acid [Vitamin C] 1,000 mg PO DAILY 04/03/16 01/12/23 Levothyroxine Sodium [Synthroid] 75 mcg PO DAILY 04/03/16 01/12/23 Cholecalciferol [Vitamin D3 (25 25 mcg PO DAILY 04/07/18 01/12/23 Mcg = 1000 Iu)] DULoxetine HCL [Cymbalta] 60 mg PO DAILY 04/07/18 01/12/23 Montelukast [Singulair] 10 mg PO DAILY 04/07/18 01/12/23 Atorvastatin [Lipitor] 20 mg PO HS 01/12/23 01/12/23 Budesonide/Formoterol Fumarate 2 puff INHALATION RT-BID 01/12/23 01/12/23 [Symbicort 160-4.5 Mcg Inhaler] Ipratropium [place] [Atrovent Hfa] 2 puff INHALATION RT-QID PRN 01/12/23 01/12/23 Isosorbide Dinitrate [Isordil] 15 mg PO DAILY 01/12/23 01/12/23 Melatonin 5 mg PO HS 01/12/23 01/12/23 Nitroglycerin Sl Tabs [Nitrostat] 0.4 mg SL Q5M PRN 01/12/23 01/12/23 Zinc Gluconate [Zinc] 50 mg PO DAILY 01/12/23 01/12/23 bisacodyL [Dulcolax] 5 mg PO DAILY 01/12/23 01/12/23 Allergies Allergy/AdvReac Type Severity Reaction Status Date / Time aspirin Allergy Abdominal Verified 01/12/23 15:45 Pain nickel Allergy itching, Verified 01/12/23 15:45 rash Penicillins Allergy Rash/Hives Verified 01/12/23 15:45 Review of Systems ROS Statement: Those systems with pertinent positive or pertinent negative responses have been documented in the HPI. ROS Other: All systems not noted in ROS Statement are negative. Past Medical History Past Medical History: Asthma, GERD/Reflux, Hyperlipidemia, Mitral Valve Prolapse (MVP), Pneumonia, Skin Disorder, Thyroid Disorder Additional Past Medical History / Comment(s): Hx HIATAL HERNIA and Acid reflux, resolved with surgery. IBS, hx COLITIS A LONG TIME AGO, STRESS INCONTINENCE OF URINE, occasional migraines, dermatitis, heart palpitations, "low BP, cholestrol a little high." History of Any Multi-Drug Resistant Organisms: MRSA Date of last positivie culture/infection: 2010 MDRO Source:: knee-2008, rt thumb 2010 Past Surgical History: Adenoidectomy, Breast Surgery, Section, Cholecystectomy, Orthopedic Surgery, Tonsillectomy Additional Past Surgical History / Comment(s): RT knee ACL surgery, RT GREAT TOE FUSION, bilateral carpel tunnel, nose/sinus surgery, bilateral bunionectomy(right X2), surgery for tubal , left breast lumpectomy, Hiatal hernia surgery, surgery to correct Acid Reflux. Past Anesthesia/Blood Transfusion Reactions: Previous Problems w/ Anesthesia Additional Past Anesthesia/Blood Transfusion Reaction / Comment(s): "Woke up dur ing surgery." Past Psychological History: Anxiety, Depression Smoking Status: Current every day smoker Past Alcohol Use History: Occasional Past Drug Use History: None Reported - Past Family History Mother Family Medical History: Cancer Additional Family Medical History / Comment(s): MULTIPLE MYELOMA. Father Family Medical History: Cancer, CVA/TIA Additional Family Medical History / Comment(s): Skin cancer. General Exam Limitations: no limitations General appearance: alert Head exam: Present: atraumatic Eye exam: Absent: periorbital swelling ENT exam: Present: mucous membranes moist Neck exam: Absent: meningismus Respiratory exam: Absent: respiratory distress, accessory muscle use Cardiovascular Exam: Present: regular rate GI/Abdominal exam: Present: soft, tenderness (diffuse). Absent: guarding, rebound, rigid, mass Extremities exam: Present: normal capillary refill. Absent: pedal edema Back exam: Absent: tenderness, CVA tenderness (R), CVA tenderness (L), rash noted Neurological exam: Present: alert, oriented X3 Psychiatric exam: Present: normal affect, normal mood Skin exam: Present: warm, dry, normal color. Absent: cyanosis, diaphoretic, petechiae, pallor Course Vital Signs 01/12/23 01/12/23 12:22 14:23 Temperature 97.9 F Pulse Rate 66 54 L Respiratory 18 18 Rate Blood Pressure 120/76 102/59 O2 Sat by Pulse 96 96 Oximetry Medical Decision Making - Medical Decision Making Was pt. sent in by a medical professional or institution (, PA, CEMETERY MANAGER, urgent care, hospital, or senior care...) When possible be specific @ -[No] Did you speak to anyone other than the patient for history (EMS, parent, family, police, friend...)? What history was obtained from this source @ -[No] Did you review nursing and triage notes (agree or disagree)? Why? @ -[I reviewed and agree with nursing and triage notes] Were old charts reviewed (outside hosp., previous admission, EMS record, old EKG, old radiological studies, urgent care reports/EKG's, senior care records)? Report findings @ -yes, previous CT report and EKG Differential Diagnosis (chest pain, altered mental status, abdominal pain women, abdominal pain men, vaginal bleeding, weakness, fever, dyspnea, syncope, headache, dizziness, GI bleed, back pain, seizure, CVA, palpatations, mental health, musculoskeletal)? @ -Differential Abdominal Pain Women: Appendicitis, Cholecystitis, diverticulosis, ischemic bowel, pancreatitis, hepatitis, UTI, gastroenteritis, AAA, incarcerated hernia, bowel obstruction, c onstipation, inflammatory bowel, hepatitis, peptic ulcer disease, splenic infarction, perforated viscus, vulvitis, ovarian torsion, PID, kidney stone, placenta abruption, this is not meant to be an all-inclusive list EKG interpreted by me (3pts min.). @ -yes, EKG interpreted by me shows sinus bradycardia with ventricular rate 56, RI interval 0.19, QRS 0.64, QTC 0.410. Normal axis. No concerning changes compared to old. X-rays interpreted by me (1pt min.). @ -[None done] CT interpreted by me (1pt min.). @ -no U/S interpreted by me (1pt. min.). @ -[None done] What testing was considered but not performed or refused? (CT, X-rays, U/S, labs)? Why? @ -[None] What meds were considered but not given or refused? Why? @ -[None] Did you discuss the management of the patient with other professionals (professionals i.e. , PA, CEMETERY MANAGER, lab, RT, psych nurse, social scientist, gear cutting machine operator, teacher, security control room officer, shoe parts caser)? Give summary @ -[No] Was smoking cessation discussed for >3mins.? @ -yes Was critical care preformed (if so, how long)? @ -[No] Were there social determinants of health that impacted care today? How? (Homelessness, low income, unemployed, alcoholism, drug addiction, transportation, low edu. Level, literacy, decrease access to med. care, senior living, rehab)? @ -[No] Was there de-escalation of care discussed even if they declined (Discuss DNR or withdrawal of care, Hospice)? DNR status @ -[No] What co-morbidities impacted this encounter? (DM, HTN, Smoking, COPD, CAD, Cancer, CVA, ARF, Chemo, Hep., AIDS, mental health diagnosis, sleep apnea, mor bid obesity)? @ -Patient has history of asthma, GERD, hyperlipidemia, hypothyroid, anxiety, depression, daily smoker, IBS. Surgical history of hiatal repair, cholecystectomy. Was patient admitted / discharged? Hospital course, mention meds given and route, prescriptions, significant lab abnormalities, going to OR and other pertinent info. @ -Admitted 62-year-old female presents to the emergency room with complaints of abdominal pain that started this morning. Describes as cramping and bloating with nausea and diarrhea. Denies any fevers. Stool is brown and watery. Denies any vomiting. No chest pain or shortness of breath. Patient states that she tried Pepto-Bismol and Gas-X with no relief. States has a history of abdominal infections but denies diverticulitis or colitis. According to medical records, patient did have a CT abdomen and pelvis performed 05/17/2019 showing concern for colitis from the ascending colon through the transverse colon to the descending colon. Today patient was given Zofran for nausea, IV fluids and fentanyl for pain. Bentyl for the abdominal cramping. Reports improvement in symptoms. CT the abdomen shows an acute uncomplicated appendicitis with multiple within the lumen multiple at the tip and one near the base. The appendix is dilated with multiple appendicoliths. Some adjacent fat stranding changes. Dilatation up to 16 mm. The largest in the base measuring 10 mm. No evidence of pneumoperitoneum or free fluid. CBC shows no evidence of leukocytosis. Lactic acid negative at 1.8. Electrolytes are unremarkable. Troponin negative at 0.012. Patient and were advised of the results and agreeable to the plan of care. I spoke with Dr. Gonzalez regarding appendicitis, blood cultures drawn and IV antibiotics started. Patient will be admitted to [facility] for medical management Case discussed with Dr. Solorzano Undiagnosed new problem with uncertain prognosis? @ -[No] Drug Therapy requiring intensive monitoring for toxicity (Heparin, Nitro, Insulin, Cardizem)? @ -[No] Were any procedures done? @ -[No] Diagnosis/symptom? @ -Acute appendicitis Acute, or Chronic, or Acute on Chronic? @ -Acute Uncomplicated (without systemic symptoms) or Complicated (systemic symptoms)? @ -Complicated Side effects of treatment? @ -[No] Exacerbation, Progression, or Severe Exacerbation? @ -[No] Poses a threat to life or bodily function? How? (Chest pain, USA, NH, pneumonia, PE, COPD, DKA, ARF, appy, cholecystitis, CVA, Diverticulitis, Homicidal, Suicidal, threat to staff... and all critical care pts) @ -Yes appendicitis can progress to rupture resulting in sepsis and - Lab Data Result diagrams: 01/12/23 12:41 01/12/23 12:41 Lab Results 01/12/23 01/12/23 01/12/23 Range/Units 12:41 12:41 12:41 WBC 10.1 (3.8-10.6) k/uL RBC 5.09 (3.80-5.40) m/uL Hgb 15.1 (11.4-16.0) gm/dL Hct 45.8 (34.0-46.0) % MCV 90.2 (80.0-100.0) fL MCH 29.7 (25.0-35.0) pg MCHC 33.0 (31.0-37.0) g/dL RDW 13.2 (11.5-15.5) % Plt Count 359 (150-450) k/uL MPV 8.2 Neutrophils % 81 % Lymphocytes % 12 % Monocytes % 4 % Eosinophils % 1 % Basophils % 0 % Neutrophils # 8.2 H (1.3-7.7) k/uL Lymphocytes # 1.2 (1.0-4.8) k/uL Monocytes # 0.4 (0-1.0) k/uL Eosinophils # 0.1 (0-0.7) k/uL Basophils # 0.0 (0-0.2) k/uL PT (9.0-12.0) sec INR (<1.2) APTT (22.0-30.0) sec Sodium 136 L (137-145) mmol/L Potassium 4.1 (3.5-5.1) mmol/L Chloride 102 (98-107) mmol/L Carbon Dioxide 23 (22-30) mmol/L Anion Gap 11 mmol/L BUN 10 (7-17) mg/dL Creatinine 0.62 (0.52-1.04) mg/dL Est GFR (CKD-EPI)AfAm >90 (>60 ml/min/1.73 sqM) Est GFR (CKD-EPI)NonAf >90 (>60 ml/min/1.73 sqM) Glucose 114 H (74-99) mg/dL Plasma Lactic Acid Esau 1.8 (0.7-2.0) mmol/L Calcium 9.5 (8.4-10.2) mg/dL Total Bilirubin 0.7 (0.2-1.3) mg/dL AST 22 (14-36) U/L ALT 21 (4-34) U/L Alkaline Phosphatase 130 H (38-126) U/L Troponin I (0.000-0.034) ng/mL Total Protein 7.4 (6.3-8.2) g/dL Albumin 4.6 (3.5-5.0) g/dL Amylase 64 (30-110) U/L Lipase 181 (23-300) U/L 01/12/23 01/12/23 Range/Units 12:41 12:41 WBC (3.8-10.6) k/uL RBC (3.80-5.40) m/uL Hgb (11.4-16.0) gm/dL Hct (34.0-46.0) % MCV (80.0-100.0) fL MCH (25.0-35.0) pg MCHC (31.0-37.0) g/dL RDW (11.5-15.5) % Plt Count (150-450) k/uL MPV Neutrophils % % Lymphocytes % % Monocytes % % Eosinophils % % Basophils % % Neutrophils # (1.3-7.7) k/uL Lymphocytes # (1.0-4.8) k/uL Monocytes # (0-1.0) k/uL Eosinophils # (0-0.7) k/uL Basophils # (0-0.2) k/uL PT 10.9 (9.0-12.0) sec INR 1.0 (<1.2) APTT 22.5 (22.0-30.0) sec Sodium (137-145) mmol/L Potassium (3.5-5.1) mmol/L Chloride (98-107) mmol/L Carbon Dioxide (22-30) mmol/L Anion Gap mmol/L BUN (7-17) mg/dL Creatinine (0.52-1.04) mg/dL Est GFR (CKD-EPI)AfAm (>60 ml/min/1.73 sqM) Est GFR (CKD-EPI)NonAf (>60 ml/min/1.73 sqM) Glucose (74-99) mg/dL Plasma Lactic Acid Esau (0.7-2.0) mmol/L Calcium (8.4-10.2) mg/dL Total Bilirubin (0.2-1.3) mg/dL AST (14-36) U/L ALT (4-34) U/L Alkaline Phosphatase (38-126) U/L Troponin I <0.012 (0.000-0.034) ng/mL Total Protein (6.3-8.2) g/dL Albumin (3.5-5.0) g/dL Amylase (30-110) U/L Lipase (23-300) U/L - EKG Data -: EKG Interpreted by Me Rate: bradycardia (EKG interpreted by me shows sinus bradycardia with a ventricular rate of 56, RI interval 0.149, QRS 0.64, QTC 0.410; no concerning changes compared to old 04/03/2016) Disposition Clinical Impression: Appendicitis Disposition: ADMITTED IP TO THIS [facility] Decision Date: 01/12/23
[2023-01-12] MEDS ORDERED: DICYCLOMINE 10 MG/ML 2 ML AMP IM STA (12:53)
[2023-01-12 13:33] LABS: Basophils % (A) 0 %; Eosinophils # (A) 0.1 k/uL (0-0.7); Eosinophils % (A) 1 %; HCT 45.8 % (34.0-46.0); HGB 15.1 gm/dL (11.4-16.0); Lymphocytes # (A) 1.2 k/uL (1.0-4.8); Lymphocytes % (A) 12 %; MCH 29.7 pg (25.0-35.0); MCV 90.2 fL (80.0-100.0); Mean Platelet Volume 8.2; Monocytes # (A) 0.4 k/uL (0-1.0); Monocytes % (A) 4 %; Neutrophils # (A) 8.2 k/uL (1.3-7.7); Neutrophils % (A) 81 %; Platelet Count 359 k/uL (150-450); RBC 5.09 m/uL (3.80-5.40); RDW 13.2 % (11.5-15.5); WBC 10.1 k/uL (3.8-10.6)
[2023-01-12 13:43] LABS: ALT 21 U/L (4-34); AST 22 U/L (14-36); African American GFR (CKD) >90 (>60 ml/min/1.73 sqM); Albumin 4.6 g/dL (3.5-5.0); Alkaline Phosphatase 130 U/L (38-126); Amylase 64 U/L (30-110); Anion Gap 11 mmol/L; Blood Urea Nitrogen 10 mg/dL (7-17); Calcium 9.5 mg/dL (8.4-10.2); Carbon Dioxide 23 mmol/L (22-30); Chloride 102 mmol/L (98-107); Glucose 114 mg/dL (74-99); Lipase 181 U/L (23-300); Non-African American GFR(CKD) >90 (>60 ml/min/1.73 sqM); Potassium 4.1 mmol/L (3.5-5.1); Sodium 136 mmol/L (137-145); Total Bilirubin 0.7 mg/dL (0.2-1.3); Total Protein 7.4 g/dL (6.3-8.2)
[2023-01-12 13:46] LABS: Partial Thromboplastin Time 22.5 sec (22.0-30.0); Prothrombin Time 10.9 sec (9.0-12.0)
--- NOTE | 2023-01-12 13:57 | CT ---
EXAMINATION TYPE: CT abdomen pelvis w con CT DLP: 825.3 mGycm, Automated exposure control for dose reduction was used. DATE OF EXAM: 01/12/2023 1:48 PM COMPARISON: CT abdomen pelvis most recent from 05/17/2019. CLINICAL INDICATION:Female, 62 years old with history of abdominal pain; Abdominal pain TECHNIQUE: Axial CT of the abdomen and pelvis. Sagittal and coronal reformats were created on a [employer] workstation. Contrast used:100 ml mL of Isovue 300 with IV Contrast, Oral contrast used: without Oral Contrast FINDINGS: LOWER CHEST: Unremarkable ABDOMEN LIVER: Unremarkable GALLBLADDER AND BILE DUCTS: Gallbladder is surgically absent with mild intrahepatic and extra hepatic biliary dilatation likely physiologic and a postcholecystectomy change. No evidence of choledocholit hiasis. PANCREAS: Unremarkable. SPLEEN: Unremarkable. ADRENAL GLANDS: Unremarkable. KIDNEYS AND URETERS: No evidence of hydronephrosis or renal calculus. The ureters are unremarkable. PELVIS BLADDER: Unremarkable REPRODUCTIVE: Unremarkable. ABDOMEN & PELVIS STOMACH AND BOWEL: The appendix is dilated with multiple appendicoliths. There is some adjacent fat s tranding changes. There is dilation up to 16 mm. The largest in the the base measuring 10 mm. Additio nal larger appendicoliths in the tip. PERITONEUM/RETROPERITONEUM: No evidence of pneumoperitoneum or free fluid. VASCULATURE: No evidence of aortic aneurysm. MUSCULOSKELETAL: No acute osseous abnormalities LYMPH NODES: No gross evidence for lymphadenopathy. SOFT TISSUE/ABDOMINAL WALL: Unremarkable IMPRESSION: Acute uncomplicated appendicitis with multiple appendicoliths within the lumen multiple at the tip an d one near the base.
[2023-01-12] MEDS ORDERED: NALOXONE 0.4 MG/ML 1 ML VIAL IV PRN (14:30)
[2023-01-12] MEDS ORDERED: HYDROmorphone 0.5 MG/0.5 ML SYRINGE IVP PRN (14:30)
[2023-01-12] MEDS ORDERED: ONDANSETRON 4 MG/2 ML VIAL IVP PRN (15:01)
[2023-01-12] MEDS ORDERED: ACETAMINOPHEN TAB 325 MG TAB PO PRN (15:01)
[2023-01-12] MEDS ORDERED: KETOROLAC 15 MG/ML 1 ML VIAL IVP PRN (15:01)
--- NOTE | 2023-01-12 15:01 | P.GSHP ---
History of Present Illness H&P Date: 01/12/23 Chief Complaint: Abdominal pain Patient is a 62-year-old lady who presents to [facility] emergency department on 01/12/2023 with chief complaint of acute onset of right sided abdominal pain that began around 7:00 this morning accompanied by a degree of nausea, episodic diarrhea. She hasn't had similar symptoms in the past. Pain grew progressive throughout the day prompting her to come in for evaluation. Laboratory studies were unimpressive, she has a hemodynamically stable and afebrile appearance in terms of vital signs. A computed tomography scan of the abdomen and pelvis was obtained showing findings consistent with acute uncomplicated appendix fasciitis with multiple fecaliths and inflammatory changes about the appendix. No evidence of bowel obstruction, no significant free fluid, no free air. She's not maintained on any manner of oral a nticoagulants. No known history of heart attack DVT or pulmonary embolus. She tells me she might have suffered with a stroke 6-12 months ago but doesn't describe any long-term deficits. Cells like she may have suffered with a TIA. She tells me she may have undergone colonoscopy some 10 years ago or so recalls being told there was some manner of inflammation of the colon for which she was treated with antibiotics. She does not carry a known diagnosis of inflammatory bowel disease. - Review of Systems All systems: negative - Constitutional Constitutional: Reports as per HPI Past Medical History Past Medical History: Asthma, GERD/Reflux, Hyperlipidemia, Mitral Valve Prolapse (MVP), Pneumonia, Skin Disorder, Thyroid Disorder Additional Past Medical History / Comment(s): Hx HIATAL HERNIA and Acid reflux, resolved with surgery. IBS, hx COLITIS A LONG TIME AGO, STRESS INCONTINENCE OF URINE, occasional migraines, dermatitis, heart palpitations, "low BP, cholestrol a little high." History of Any Multi-Drug Resistant Organisms: MRSA Date of last positivie culture/infection: 2010 MDRO Source:: knee-2008, rt thumb 2010 Past Surgical History: Adenoidectomy, Breast Surgery, Section, Cholecystectomy, Orthopedic Surgery, Tonsillectomy Additional Past Surgical History / Comment(s): RT knee ACL surgery, RT GREAT TOE FUSION, bilateral carpel tunnel, nose/sinus surgery, bilateral bunionectomy(right X2), surgery for tubal , left breast lumpectomy, Hiatal hernia surgery, surgery to correct Acid Reflux. Past Anesthesia/Blood Transfusion Reactions: Previous Problems w/ Anesthesia Additional Past Anesthesia/Blood Transfusion Reaction / Comment(s): "Woke up during surgery." Past Psychological History: Anxiety, Depression Smoking Status: Current every day smoker Past Alcohol Use History: Occasional Past Drug Use History: None Reported - Past Family History Mother Family Medical History: Cancer Additional Family Medical History / Comment(s): MULTIPLE MYELOMA. Father Family Medical History: Cancer, CVA/TIA Additional Family Medical History / Comment(s): Skin cancer. Medications and Allergies Home Medications Medication Instructions Recorded Confirmed Type Albuterol Sulfate [Proair Hfa] 2 puff INHALATION RT-Q8H PRN 04/03/16 07/13/19 History Ascorbic Acid [Vitamin C] 1,000 mg PO DAILY 04/03/16 07/08/19 History Clobetasol Propionate [Temovate 1 applic TOPICAL BID PRN 04/03/16 07/08/19 History 0.05% Cream] Levothyroxine Sodium [Synthroid] 75 mcg PO DAILY 04/03/16 07/08/19 History Aspirin 81 mg PO DAILY #1 chewable 04/05/16 07/13/19 Rx Cholecalciferol [Vitamin D3 (25 2,000 unit PO DAILY 04/07/18 07/08/19 History Mcg = 1000 Iu)] DULoxetine HCL [Cymbalta] 60 mg PO DAILY 04/07/18 07/08/19 History Isosorbide Mononitrate ER [Imdur] 15 mg PO QAM 04/07/18 07/13/19 History Montelukast [Singulair] 10 mg PO DAILY 04/07/18 07/08/19 History Gabapentin [Neurontin] 300 mg PO HS 04/28/18 07/08/19 History Fexofenadine HCl [Fang Allergy] 180 mg PO DAILY 05/18/19 07/08/19 History Lipitor (Unknown Dose) 1 tab PO DAILY 07/08/19 07/08/19 History Potassium Bicarbonate/Cit AC 25 meq PO DAILY 07/08/19 07/08/19 History [Klor-Con 25 (Effer. Tab)] Allergies Allergy/AdvReac Type Severity Reaction Status Date / Time aspirin Allergy Abdominal Verified 01/12/23 12:24 Pain nickel Allergy itching, Verified 01/12/23 12:24 rash Penicillins Allergy Rash/Hives Verified 01/12/23 12:24 Surgical - Exam Osteopathic Statement: *. No significant issues noted on an osteopathic structural exam other than those noted in the History and Physical/Consult. Vital Signs Temp Pulse Resp BP Pulse Ox 97.9 F 66 18 120/76 96 01/12/23 12:22 01/12/23 12:22 01/12/23 12:22 01/12/23 12:22 01/12/23 12:22 - General well developed, well nourished, no distress - Eyes PERRL, normal ocular movement - ENT normal pinna, normal nares, normal mucosa, no hearing loss - Neck trachea midline - Respiratory normal expansion, normal respiratory effort - Cardiovascular Rhythm: regular - Abdomen Abdomen is soft. There is moderate right lateral tenderness to palpation with voluntary guarding, no rebound. Positive Rovsing sign, positive psoas sign on the right. Findings consistent with localized right lateral of peritonitis. - Neurologic normal coordination, normal sensation - Psychiatric oriented to time, oriented to person, oriented to place, speech is normal, memory intact Results - Labs 01/12/23 12:41 01/12/23 12:41 Abnormal Lab Results - Last 24 Hours (Table) 01/12/23 01/12/23 Range/Units 12:41 12:41 Neutrophils # 8.2 H (1.3-7.7) k/uL Sodium 136 L (137-145) mmol/L Glucose 114 H (74-99) mg/dL Alkaline Phosphatase 130 H (38-126) U/L Diabetes panel 01/12/23 Range/Units 12:41 Sodium 136 L (137-145) mmol/L Potassium 4.1 (3.5-5.1) mmol/L Chloride 102 (98-107) mmol/L Carbon Dioxide 23 (22-30) mmol/L BUN 10 (7-17) mg/dL Creatinine 0.62 (0.52-1.04) mg/dL Glucose 114 H (74-99) mg/dL Calcium 9.5 (8.4-10.2) mg/dL AST 22 (14-36) U/L ALT 21 (4-34) U/L Alkaline Phosphatase 130 H (38-126) U/L Total Protein 7.4 (6.3-8.2) g/dL Albumin 4.6 (3.5-5.0) g/dL Calcium panel 01/12/23 Range/Units 12:41 Calcium 9.5 (8.4-10.2) mg/dL Albumin 4.6 (3.5-5.0) g/dL Pituitary panel 01/12/23 Range/Units 12:41 Sodium 136 L (137-145) mmol/L Potassium 4.1 (3.5-5.1) mmol/L Chloride 102 (98-107) mmol/L Carbon Dioxide 23 (22-30) mmol/L BUN 10 (7-17) mg/dL Creatinine 0.62 (0.52-1.04) mg/dL Glucose 114 H (74-99) mg/dL Calcium 9.5 (8.4-10.2) mg/dL Adrenal panel 01/12/23 Range/Units 12:41 Sodium 136 L (137-145) mmol/L Potassium 4.1 (3.5-5.1) mmol/L Chloride 102 (98-107) mmol/L Carbon Dioxide 23 (22-30) mmol/L BUN 10 (7-17) mg/dL Creatinine 0.62 (0.52-1.04) mg/dL Glucose 114 H (74-99) mg/dL Calcium 9.5 (8.4-10.2) mg/dL Total Bilirubin 0.7 (0.2-1.3) mg/dL AST 22 (14-36) U/L ALT 21 (4-34) U/L Alkaline Phosphatase 130 H (38-126) U/L Total Protein 7.4 (6.3-8.2) g/dL Albumin 4.6 (3.5-5.0) g/dL - Imaging CT scan - abdomen: report reviewed, image reviewed Assessment and Plan Assessment: 62-year-old lady with clinical history, physical exam findings, and computed tomography scan of the abdomen and pelvis all consistent with acute appendicitis with fecalith, no obvious rupture or abscess. Plan: Options were treatment were discussed with the patient and her at bedside. She like to move forward with laparoscopic, possible open appendectomy to be performed this afternoon. She'll be started on appropriate broad-spectrum antibiotics preoperatively and admitted to my care postoperatively. If there is no evidence of rupture or abscess and she does well overnight she may be ready for discharge home by tomorrow afternoon at the earliest. Time with Patient: Greater than 30
[2023-01-12] MEDS: HEPARIN SODIUM,PORCINE/PF 5,000 UNIT/0.5 ML SYRINGE SQ SCH (15:47)
[2023-01-12] MEDS: SODIUM CHLORIDE 0.9% 1,000 ML IV SCH (15:47)
[2023-01-12] MEDS ORDERED: LIDOCAINE 0.5% (PF) 5 MG/ML (50 ML SDV) SQ ONE (15:53)
[2023-01-12] MEDS ORDERED: BUPIVACAINE (PF) 0.25% 30 ML VIAL SQ ONE (15:53)
[2023-01-12] MEDS ORDERED: PROPOFOL 10 MG/ML 20 ML VIAL IV ONE (15:55)
[2023-01-12] MEDS ORDERED: DEXAMETHASONE SOD PHOSPHATE 4 MG/ML 1 ML VIAL ONE (15:55)
[2023-01-12] MEDS ORDERED: NEOSTIGMINE 1 MG/ML 10 ML VIAL ONE (15:55)
[2023-01-12] MEDS ORDERED: MIDAZOLAM 2 MG/2 ML VIAL ONE (15:55)
[2023-01-12] MEDS ORDERED: ROCURONIUM 10 MG/ML (5 ML VIAL) IV ONE (15:55)
[2023-01-12] MEDS ORDERED: HYDROmorphone (PF) 1 MG/ML ONE (15:55)
[2023-01-12] MEDS ORDERED: SUCCINYLCHOLINE CHLORIDE 200 MG/10 ML VIAL IV ONE (15:55)
[2023-01-12] MEDS ORDERED: ONDANSETRON 4 MG/2 ML VIAL ONE (15:55)
[2023-01-12] MEDS ORDERED: KETOROLAC 15 MG/ML 1 ML VIAL ONE (15:55)
[2023-01-12] MEDS ORDERED: GLYCOPYRROLATE 0.2 MG/ML 2 ML VIAL ONE (15:55)
[2023-01-12] MEDS ORDERED: LIDOCAINE 4% LTA KIT (4 ML) TOPICAL ONE (15:55)
[2023-01-12] MEDS ORDERED: fentaNYL (PF) 50 MCG/ML 2 ML AMP ONE (15:55)
[2023-01-12] MEDS ORDERED: LIDOCAINE 2% INJ 20 MG/ML (2 ML VIAL) ONE (15:55)
[2023-01-12] MEDS ORDERED: SUGAMMADEX SODIUM 200 MG/2 ML SDV IV ONE (15:55)
[2023-01-12] MEDS ORDERED: LEVOFLOXACIN 500MG-D5W PMX 500 MG in DEXTROSE/WATER 1 100ML.BAG IVPB SCH (16:00)
[2023-01-12] MEDS ORDERED: IV FLUID CONTINUATION 1,000 ML IV ONE (16:00)
[2023-01-12] MEDS ORDERED: HYDROmorphone 0.5 MG/0.5 ML SYRINGE IVP ONE ×3 (17:10→17:30)
--- NOTE | 2023-01-12 17:11 | P.OP ---
Date of Procedure: 01/12/23 Preoperative Diagnosis: Acute appendicitis Postoperative Diagnosis: Acute appendicitis without rupture or abscess Procedure(s) Performed: Laparoscopic appendectomy Anesthesia: PHILLIP, local Surgeon: Jignesh Gonzalez Estimated Blood Loss (ml): 5 Pathology: other (Appendix) Condition: stable Disposition: floor Indications for Procedure: Patient is a 62-year-old lady presented to [facility] emergency department 01/12/2023 with chief complaint of less than 24 hours of progressive right lateral abdominal pain. Computed tomography scan of the abdomen and pelvis confirmed findings consistent with acute appendicitis with fecalith, no compelling signs of rupture or abscess. Physical exam was consistent with the same. Options for treatment were discussed and the patient wishes to move forward laparoscopic appendectomy. She gave informed consent for the same after discussion of risks, benefit and alternatives to treatment. Operative Findings: As above Description of Procedure: Patient was taken the operative suite and placed in supine position. Following induction of general orotracheal anesthesia she was prepped and draped in sterile fashion. Abdomen was entered palmers point in the left upper quadrant w ith 5 mm trocar under laparoscopic visualization after anesthetizing and incising the skin. Abdomen was insufflated and surveyed, no apparent injury or bleeding were noted. A second 5 mm port was placed at the umbilical position, the palmers point port upsized to 12 mm and a 5 mm port placed at the suprapubic position under laparoscopic visualization. Cecum was readily identified and medialized. Appendix was similarly identified showing mild inflammatory change in induration, no evidence of rupture or abscess. Window was created bluntly at the base of the appendix at its junction with the cecum and appendix divided at the confluence with the cecum with Endo NAN white staple load. Mesoappendix and appendiceal artery were taken down with LigaSure. Appendix retrieved with the Endo Catch bag through the 12 mm port site. Operative site was inspected, staple line intact, hemostasis excellent. Fascia at the 12 mm trocar was closed with 0 Vicryl tie and Jhonny-Daniel suture passer. Abdomen was desufflated, all ports withdrawn and skin over each trocar site closed with inverted 3-0 Vicryl dermal suture and incisions dressed with Dermabond adhesive. Patient was transferred to the postanesthesia care unit in stable condition. She may start clear liquids this evening if she wishes. If there are no issues overnight I expect her to be ready for discharge home by tomorrow.
[2023-01-12] MEDS ORDERED: LACTATED RINGERS 1,000 ML IV ONE (17:33)
[2023-01-12] MEDS: LACTATED RINGERS 1,000 ML IV SCH (18:01)
[2023-01-12] MEDS: metroNIDAZOLE-NS PMX 500 MG in SALINE 1 100ML.BAG IVPB SCH (20:58)
[2023-01-12] MEDS ORDERED: MONTELUKAST 10 MG TAB PO SCH (21:00)
[2023-01-12] MEDS ORDERED: MELATONIN 5 MG TABLET PO SCH (21:00)
[2023-01-13] MEDS: HEPARIN SODIUM,PORCINE/PF 5,000 UNIT/0.5 ML SYRINGE SQ SCH ×2 (00:35→08:25)
[2023-01-13] MEDS: metroNIDAZOLE-NS PMX 500 MG in SALINE 1 100ML.BAG IVPB SCH ×2 (00:35→08:25)
[2023-01-13] MEDS: LACTATED RINGERS 1,000 ML IV SCH ×2 (01:59→08:26)
[2023-01-13] MEDS: SODIUM CHLORIDE 0.9% 1,000 ML IV SCH (04:03)
[2023-01-13 04:55] VITALS: TEMP 97.7
[2023-01-13 05:49] VITALS: BP 95/59
[2023-01-13 06:11] LABS: Basophils % (A) 0 %; Eosinophils # (A) 0.1 k/uL (0-0.7); Eosinophils % (A) 1 %; HCT 43.5 % (34.0-46.0); HGB 13.9 gm/dL (11.4-16.0); Lymphocytes # (A) 0.5 k/uL (1.0-4.8); Lymphocytes % (A) 6 %; MCH 29.8 pg (25.0-35.0); MCHC 31.9 g/dL (31.0-37.0); MCV 93.4 fL (80.0-100.0); Mean Platelet Volume 8.7; Monocytes # (A) 0.5 k/uL (0-1.0); Monocytes % (A) 6 %; Neutrophils # (A) 7.8 k/uL (1.3-7.7); Neutrophils % (A) 87 %; Platelet Count 317 k/uL (150-450); RBC 4.66 m/uL (3.80-5.40); RDW 13.3 % (11.5-15.5); WBC 8.9 k/uL (3.8-10.6)
[2023-01-13 06:23] LABS: ALT 17 U/L (4-34); AST 21 U/L (14-36); African American GFR (CKD) >90 (>60 ml/min/1.73 sqM); Albumin 3.7 g/dL (3.5-5.0); Albumin/Globulin Ratio 1.4; Alkaline Phosphatase 99 U/L (38-126); Anion Gap 5 mmol/L; Blood Urea Nitrogen 8 mg/dL (7-17); Calcium 8.9 mg/dL (8.4-10.2); Carbon Dioxide 26 mmol/L (22-30); Chloride 106 mmol/L (98-107); Globulin 2.6 g/dL; Glucose 130 mg/dL (74-99); Non-African American GFR(CKD) >90 (>60 ml/min/1.73 sqM); Potassium 4.5 mmol/L (3.5-5.1); Sodium 137 mmol/L (137-145); Total Bilirubin 0.5 mg/dL (0.2-1.3); Total Protein 6.3 g/dL (6.3-8.2)
[2023-01-13] MEDS ORDERED: LEVOTHYROXINE 75 MCG TAB PO SCH (07:30)
[2023-01-13 08:01] VITALS: PULSE 60; RESP 16
[2023-01-13] MEDS ORDERED: ISOSORBIDE DINITRATE 10 MG TAB PO SCH (09:00)
[2023-01-13] MEDS ORDERED: DULoxetine HCL 60 MG CAPSULE.DR PO SCH (09:00)
--- NOTE | 2023-01-13 14:21 | P.DS ---
Providers Date of admission: 01/12/23 14:41 Expected date of discharge: 01/13/23 Attending physician: Jignesh Gonzalez, Consults: 01/12/23 14:30 Consult Physician Stat Consulting Provider: Jignesh Gonzalez Consult Reason/Comments: Acute appendicitis Do you want consulting provider notified?: Already Contacted 01/12/23 15:14 Consult Physician Routine Consulting Provider: [facility] Consult Reason/Comments: [facility] Do you want consulting provider notified?: Yes Primary care physician: [facility] Course: Patient presented to [facility] emergency department with clinical history pending send computed tomography scan of the abdomen and pelvis Consistent with acute appendicitis with fecalith, no evidence of rupture or abscess. She was started on broad-spectrum antibiotics. She wished to move forward laparoscopic appendectomy and gave informed consent for the same after discussion of risks, benefit alternatives to treatment. She was taken to the operating room where laparoscopic appendectomy proceeded without incident. There was no evidence of rupture or abscess formation. She was transitioned to the medical service surgical floor for convalescence. She tolerated a clear liquid diet well. Was ambulatory. On postoperative day 1 she had no complaints of pain was hemodynamically stable and felt much better than on initial presentation. She was discharged home with structures to follow up with either Dr. Garcia or Dr. Vasquez in 1 week, avoid any lifting over 10 pounds for 3-4 weeks, resume showering as normal and resume bland low-fat diet. She does not require oral antibiotics or narcotics. She was advised to take Tylenol or ibuprofen 6- 800 mg [id number] 3 times daily with food if needed for pain. Assessment: Acute appendicitis with fecalith, no evidence of rupture or abscess formation Procedures: Laparoscopic appendectomy on date of presentation Patient Condition at Discharge: Stable Plan - Discharge Summary New Discharge Prescriptions: No Action Levothyroxine Sodium [Synthroid] 75 mcg PO DAILY Ascorbic Acid [Vitamin C] 1,000 mg PO DAILY Cholecalciferol [Vitamin D3 (25 Mcg = 1000 Iu)] 25 mcg PO DAILY Montelukast [Singulair] 10 mg PO DAILY DULoxetine HCL [Cymbalta] 60 mg PO DAILY Zinc Gluconate [Zinc] 50 mg PO DAILY Nitroglycerin Sl Tabs [Nitrostat] 0.4 mg SL Q5M PRN PRN Reason: Chest Pain Ipratropium [place] [Atrovent Hfa] 2 puff INHALATION RT-QID PRN PRN Reason: Shortness Of Breath Atorvastatin [Lipitor] 20 mg PO HS Melatonin 5 mg PO HS bisacodyL [Dulcolax] 5 mg PO DAILY Budesonide/Formoterol Fumarate [Symbicort 160-4.5 Mcg Inhaler] 2 puff INHALATION RT-BID Isosorbide Dinitrate [Isordil] 15 mg PO DAILY Discharge Medication List Ascorbic Acid [Vitamin C] 1,000 mg PO DAILY 04/03/16 [History] Levothyroxine Sodium [Synthroid] 75 mcg PO DAILY 04/03/16 [History] Cholecalciferol [Vitamin D3 (25 Mcg = 1000 Iu)] 25 mcg PO DAILY 04/07/18 [History] DULoxetine HCL [Cymbalta] 60 mg PO DAILY 04/07/18 [History] Montelukast [Singulair] 10 mg PO DAILY 04/07/18 [History] Atorvastatin [Lipitor] 20 mg PO HS 01/12/23 [History] Budesonide/Formoterol Fumarate [Symbicort 160-4.5 Mcg Inhaler] 2 puff INHALATION RT-BID 01/12/23 [History] Ipratropium [place] [Atrovent Hfa] 2 puff INHALATION RT-QID PRN 01/12/23 [History] Isosorbide Dinitrate [Isordil] 15 mg PO DAILY 01/12/23 [History] Melatonin 5 mg PO HS 01/12/23 [History] Nitroglycerin Sl Tabs [Nitrostat] 0.4 mg SL Q5M PRN 01/12/23 [History] Zinc Gluconate [Zinc] 50 mg PO DAILY 01/12/23 [History] bisacodyL [Dulcolax] 5 mg PO DAILY 01/12/23 [History] Follow up Appointment(s)/Referral(s): Orville Gutierrez DO [Primary Care Provider] - 1-2 days Activity/Diet/Wound Care/Special Instructions: No lifting over 10 pounds for 3-4 weeks, avoid strenuous activity for a similar time frame. May shower as normal. Soft bland, low fat diet for 2 weeks. Discharge Disposition: HOME SELF-CARE
[2023-01-13] MEDS ORDERED: metroNIDAZOLE-NS PMX 500 MG in SALINE 1 100ML.BAG IVPB SCH (18:00)
== END 2023-01-13 14:49 | disposition home or self-care (01) ==
LOC: EC 12:20 → 6NMEDSUR 14:41
PROVIDERS: ADMIT Surgery; ATTEND Surgery
DX: K35.80 Unspecified acute appendicitis (principal); K38.1 Appendicular concretions; E03.9 Hypothyroidism, unspecified; J44.9 Chronic obstructive pulmonary disease, unspecified; K21.9 Gastro-esophageal reflux disease without esophagitis; E78.5 Hyperlipidemia, unspecified; I34.1 Nonrheumatic mitral (valve) prolapse; F17.200 Nicotine dependence, unspecified, uncomplicated; K58.9 Irritable bowel syndrome, unspecified; R00.1 Bradycardia, unspecified; G43.909 Migraine, unspecified, not intractable, without status migrainosus; N39.3 Stress incontinence (female) (male); L30.9 Dermatitis, unspecified; F32.A Depression, unspecified; F41.9 Anxiety disorder, unspecified; Z79.890 Hormone replacement therapy; Z79.51 Long term (current) use of inhaled steroids; Z79.899 Other long term (current) drug therapy; Z88.6 Allergy status to analgesic agent; Z88.0 Allergy status to penicillin; Z91.048 Other nonmedicinal substance allergy status; Z87.01 Personal history of pneumonia (recurrent); Z87.19 Personal history of other diseases of the digestive system; Z86.14 Personal history of Methicillin resistant Staphylococcus aureus infection; Z98.1 Arthrodesis status; Z98.891 History of uterine scar from previous surgery; Z90.49 Acquired absence of other specified parts of digestive tract; Z98.890 Other specified postprocedural states; Z80.7 Family history of other malignant neoplasms of lymphoid, hematopoietic and related tissues; Z80.8 Family history of malignant neoplasm of other organs or systems; Z82.3 Family history of stroke
CPT/HCPCS: 96376; 96361; 96372; 96374; 96375; 99285; 36415; 94760; 93005; 88304; 80053 ×2; 82150; 83605; 83690; 84484; 85025 ×2; 85610; 85730; 87040; 74177; 44970; G0378 ×2; J2250; J0330; J0500; J1100; J2710; J2405; J1956; J2001 ×2; J3010; J1170 ×2; J1885 ×2; J2704; C9113; Q9967; J1644 ×2

== ENCOUNTER → 2023-01-22 | Outpatient (CLI) | payer OTHER ==
--- NOTE | 2023-01-22 16:36 | US ---
EXAMINATION TYPE: US venous doppler duplex UE LT DATE OF EXAM: 01/22/2023 COMPARISON: NONE CLINICAL INDICATION: Female, 62 years old with history of R22.32 LOCALIZED SWELLING, MASS AND LUMP, L EFT UPPER LIMB; Swelling and pain for 2 weeks. Pain x couple days. Patient does not take blood thinne rs. SIDE PERFORMED: Left arm Normal compressibility with spectral venous waveforms and color flow involving the left internal jugu lar vein, subclavian vein, axillary vein, brachial vein. Normal compressibility with color flow ident ified within the left radial and ulnar veins. There is noncompressibility with lack color flow and th rombus demonstrated within the left basilic vein. The cephalic vein is not identified. Left Arm: No evidence of DVT. Thrombus seen within basilic vein within the mid/upper arm down throu gh the elbow level. Basilic vein does not compress. IMPRESSION: 1. No ultrasound evidence for deep venous thrombosis of the left upper extremity. 2. Superficial venous thrombosis of the left basilic vein. 3. Nonvisualization of the left cephalic vein.
== END | disposition home or self-care (01) ==
LOC: RADUSWWP 15:29
PROVIDERS: ATTEND Family Medicine
DX: I82.612 Acute embolism and thrombosis of superficial veins of left upper extremity (principal); R22.32 Localized swelling, mass and lump, left upper limb

== ENCOUNTER 2023-06-08 10:35 | Emergency (ER) | payer OTHER ==
[2023-06-08 10:58] VITALS: RESP 18
[2023-06-08] MEDS ORDERED: SODIUM CHLORIDE 0.9% 1,000 ML IV ONE (11:13)
[2023-06-08] MEDS ORDERED: KETOROLAC 15 MG/ML 1 ML VIAL IVP STA (11:13)
[2023-06-08 12:06] LABS: Basophils % (A) 0 %; Eosinophils % (A) 0 %; HCT 44.2 % (34.0-46.0); HGB 14.5 gm/dL (11.4-16.0); Lymphocytes % (A) 18 %; MCH 29.8 pg (25.0-35.0); MCHC 32.8 g/dL (31.0-37.0); MCV 90.7 fL (80.0-100.0); Mean Platelet Volume 8.4; Monocytes # (A) 0.5 k/uL (0-1.0); Monocytes % (A) 10 %; Neutrophils # (A) 3.7 k/uL (1.3-7.7); Neutrophils % (A) 70 %; Platelet Count 241 k/uL (150-450); RBC 4.88 m/uL (3.80-5.40); RDW 13.6 % (11.5-15.5); WBC 5.2 k/uL (3.8-10.6)
[2023-06-08] MEDS ORDERED: HYDROcodone/APAP 5-325MG 1 EACH TAB PO STA (12:23)
[2023-06-08 12:26] LABS: ALT 22 U/L (4-34); AST 28 U/L (14-36); African American GFR (CKD) >90 (>60 ml/min/1.73 sqM); Albumin 4.1 g/dL (3.5-5.0); Alkaline Phosphatase 135 U/L (38-126); Anion Gap 13 mmol/L; Blood Urea Nitrogen 10 mg/dL (7-17); Carbon Dioxide 24 mmol/L (22-30); Chloride 101 mmol/L (98-107); Glucose 96 mg/dL (74-99); Non-African American GFR(CKD) >90 (>60 ml/min/1.73 sqM); Potassium 4.3 mmol/L (3.5-5.1); Sodium 138 mmol/L (137-145); Total Bilirubin 0.4 mg/dL (0.2-1.3); Total Protein 6.9 g/dL (6.3-8.2)
[2023-06-08 13:30] LABS: Appearance,Urine Clear (Clear); Bilirubin,Urine Negative (Negative); Blood,Urine Negative (Negative); Color,Urine Colorless; Glucose,Urine (UA) Negative (Negative); Ketones,Urine Negative (Negative); Leukocyte Esterase,Urine Negative (Negative); Nitrite,Urine Negative (Negative); Protein,Urine Negative (Negative); Specific Gravity,Urine 1.007 (1.001-1.035); Urobilinogen,Urine <2.0 mg/dL (<2.0)
--- NOTE | 2023-06-08 13:52 | ED ---
URI HPI - General Chief Complaint: Upper Respiratory Infection Stated Complaint: Sinus Issue,Bodyaches,NVD Time Seen by Provider: 06/08/23 10:55 Source: patient, RN notes reviewed Mode of arrival: ambulatory Limitations: no limitations - History of Present Illness Initial Comments: 62-year-old female presents emergency Department chief complaint of body aches, diarrhea. Patient states that there last week but states he recently started having congestion, bodyaches possible fever. Patient denies any chest pain or shortness breath. She complains of diffuse his comfort. Patient states that she's had a prior bowel infections she is unsure what this was in the past. - Related Data Home Medications Medication Instructions Recorded Confirmed Ascorbic Acid [Vitamin C] 1,000 mg PO DAILY 04/03/16 01/12/23 Levothyroxine Sodium [Synthroid] 75 mcg PO DAILY 04/03/16 01/12/23 Cholecalciferol [Vitamin D3 (25 25 mcg PO DAILY 04/07/18 01/12/23 Mcg = 1000 Iu)] DULoxetine HCL [Cymbalta] 60 mg PO DAILY 04/07/18 01/12/23 Montelukast [Singulair] 10 mg PO DAILY 04/07/18 01/12/23 Atorvastatin [Lipitor] 20 mg PO HS 01/12/23 01/12/23 Budesonide/Formoterol Fumarate 2 puff INHALATION RT-BID 01/12/23 01/12/23 [Symbicort 160-4.5 Mcg Inhaler] Ipratropium [place] [Atrovent Hfa] 2 puff INHALATION RT-QID PRN 01/12/23 01/12/23 Isosorbide Dinitrate [Isordil] 15 mg PO DAILY 01/12/23 01/12/23 Melatonin 5 mg PO HS 01/12/23 01/12/23 Nitroglycerin Sl Tabs [Nitrostat] 0.4 mg SL Q5M PRN 01/12/23 01/12/23 Zinc Gluconate [Zinc] 50 mg PO DAILY 01/12/23 01/12/23 bisacodyL [Dulcolax] 5 mg PO DAILY 01/12/23 01/12/23 Allergies Allergy/AdvReac Type Severity Reaction Status Date / Time aspirin Allergy Abdominal Verified 06/08/23 10:51 Pain nickel Allergy itching, Verified 06/08/23 10:51 rash Penicillins Allergy Rash/Hives Verified 06/08/23 10:51 Review of Systems ROS Statement: Those systems with pertinent positive or pertinent negative responses have been documented in the HPI. ROS Other: All systems not noted in ROS Statement are negative. Past Medical History Past Medical History: Asthma, GERD/Reflux, Hyperlipidemia, Mitral Valve Prolapse (MVP), Pneumonia, Skin Disorder, Thyroid Disorder Additional Past Medical History / Comment(s): Hx HIATAL HERNIA and Acid reflux, resolved with surgery. IBS, hx COLITIS A LONG TIME AGO, STRESS INCONTINENCE OF URINE, occasional migraines, dermatitis, heart palpitations, "low BP, cholestrol a little high." History of Any Multi-Drug Resistant Organisms: None Reported, MRSA Date of last positivie culture/infection: 2010 MDRO Source:: knee-2008, rt thumb 2010 Past Surgical History: Adenoidectomy, Breast Surgery, Section, Cholecystectomy, Orthopedic Surgery, Tonsillectomy Additional Past Surgical History / Comment(s): RT knee ACL surgery, RT GREAT TOE FUSION, bilateral carpel tunnel, nose/sinus surgery, bilateral bunionectomy(right X2), surgery for tubal , left breast lumpectomy, Hiatal hernia surgery, surgery to correct Acid Reflux. Past Anesthesia/Blood Transfusion Reactions: Previous Problems w/ Anesthesia Additional Past Anesthesia/Blood Transfusion Reaction / Comment(s): "Woke up during surgery." Past Psychological History: Anxiety, Depression Smoking Status: Current every day smoker Past Alcohol Use History: Occasional Past Drug Use History: None Reported - Past Family History Mother Family Medical History: Cancer Additional Family Medical History / Comment(s): MULTIPLE MYELOMA. Father Family Medical History: Cancer, CVA/TIA Additional Family Medical History / Comment(s): Skin cancer. General Exam Limitations: no limitations General appearance: alert, in no apparent distress Head exam: Present: atraumatic, normocephalic, normal inspection Eye exam: Present: normal appearance, PERRL, EOMI. Absent: scleral icterus, conjunctival injection, periorbital swelling ENT exam: Present: normal exam, mucous membranes moist Neck exam: Present: normal inspection, full ROM. Absent: tenderness, meningismus, lymphadenopathy Respiratory exam: Present: normal lung sounds bilaterally. Absent: respiratory distress, wheezes, rales, rhonchi, stridor Cardiovascular Exam: Present: regular rate, normal rhythm, normal heart sounds. Absent: systolic murmur, diastolic murmur, rubs, gallop, clicks GI/Abdominal exam: Present: soft, normal bowel sounds. Absent: distended, tenderness, guarding, rebound, rigid Neurological exam: Present: alert, oriented X3 Course Vital Signs 06/08/23 06/08/23 10:48 14:58 Temperature 99.1 F 98.4 F Pulse Rate 95 76 Respiratory 18 18 Rate Blood Pressure 101/68 126/78 O2 Sat by Pulse 98 99 Oximetry Medical Decision Making - Medical Decision Making Was pt. sent in by a medical professional or institution (, [employer]IN, SALES AGENT [employer], urgent care, hospital, or jail...) When possible be specific @ -No Did you speak to anyone other than the patient for history (EMS, parent, family, police, friend...)? What history was obtained from this source @ -No Did you review nursing and triage notes (agree or disagree)? Why? @ -I reviewed and agree with nursing and triage notes Were old charts reviewed (outside hosp., previous admission, EMS record, old EKG, old radiological studies, urgent care reports/EKG's, jail records)? Report findings @ -Reviewed prior laboratory studies Differential Diagnosis (chest pain, altered mental status, abdominal pain women, abdominal pain men, vaginal bleeding, weakness, fever, dyspnea, syncope, headache, dizziness, GI bleed, back pain, seizure, CVA, palpatations, mental health, musculoskeletal)? @ -covid 19, influenza, C. diff, gastroenteritis, EKG interpreted by me (3pts min.). @ -As above X-rays interpreted by me (1pt min.). @ -None done CT interpreted by me (1pt min.). @ -None done U/S interpreted by me (1pt. min.). @ -None done What testing was considered but not performed or refused? (CT, X-rays, U/S, labs )? Why? @ -None What meds were considered but not given or refused? Why? @ -None Did you discuss the management of the patient with other professionals (professionals i.e. [facility] Wiley, SALES AGENT [employer], lab, RT, psych nurse, social insurance specialist, shank rander, teacher, security officers and guards, cyanide case hardener)? Give summary @ -No Was smoking cessation discussed for >3mins.? @ -No Was critical care preformed (if so, how long)? @ -No Were there social determinants of health that impacted care today? How? (Homelessness, low income, unemployed, alcoholism, drug addiction, transportation, low edu. Level, literacy, decrease access to med. care, half-way, rehab)? @ -No Was there de-escalation of care discussed even if they declined (Discuss DNR or withdrawal of care, Hospice)? DNR status @ -No What co-morbidities impacted this encounter? (DM, HTN, Smoking, COPD, CAD, Cancer, CVA, ARF, Chemo, Hep., AIDS, mental health diagnosis, sleep apnea, morbid obesity)? @ -None Was patient admitted / discharged? Hospital course, mention meds given and route, prescriptions, significant lab abnormalities, going to OR and other pertinent info. @ -Discharge patient is positive for Covid 19, patient is in no sinus distress patient has had ongoing diarrhea issues but C. diff negative. She will follow- up after resolution of her Covid. We discussed return parameters patient presents plan of discharge and felt improved after IV fluids Undiagnosed new problem with uncertain prognosis? @ -No Drug Therapy requiring intensive monitoring for toxicity (Heparin, Nitro, Insu michelle, Cardizem)? @ -No Were any procedures done? @ -No Diagnosis/symptom? @ -Covid 19, diarrhea Acute, or Chronic, or Acute on Chronic? @ -Acute Uncomplicated (without systemic symptoms) or Complicated (systemic symptoms)? @ -Complicated Side effects of treatment? @ -No Exacerbation, Progression, or Severe Exacerbation? @ -No Poses a threat to life or bodily function? How? (Chest pain, [place], NV, pneumonia, PE, COPD, DKA, ARF, appy, cholecystitis, CVA, Diverticulitis, Homicidal, Suicidal, threat to staff... and all critical care pts) @ -No - Lab Data Result diagrams: 06/08/23 11:15 06/08/23 11:15 Lab Results 06/08/23 06/08/23 06/08/23 Range/Units 11:15 11:15 11:15 WBC 5.2 (3.8-10.6) k/uL RBC 4.88 (3.80-5.40) m/uL Hgb 14.5 (11.4-16.0) gm/dL Hct 44.2 (34.0-46.0) % MCV 90.7 (80.0-100.0) fL MCH 29.8 (25.0-35.0) pg MCHC 32.8 (31.0-37.0) g/dL RDW 13.6 (11.5-15.5) % Plt Count 241 (150-450) k/uL MPV 8.4 Neutrophils % 70 % Lymphocytes % 18 % Monocytes % 10 % Eosinophils % 0 % Basophils % 0 % Neutrophils # 3.7 (1.3-7.7) k/uL Lymphocytes # 1.0 (1.0-4.8) k/uL Monocytes # 0.5 (0-1.0) k/uL Eosinophils # 0.0 (0-0.7) k/uL Basophils # 0.0 (0-0.2) k/uL Sodium 138 (137-145) mmol/L Potassium 4.3 (3.5-5.1) mmol/L Chloride 101 (98-107) mmol/L Carbon Dioxide 24 (22-30) mmol/L Anion Gap 13 mmol/L BUN 10 (7-17) mg/dL Creatinine 0.60 (0.52-1.04) mg/dL Est GFR (CKD-EPI)AfAm >90 (>60 ml/min/1.73 sqM) Est GFR (CKD-EPI)NonAf >90 (>60 ml/min/1.73 sqM) Glucose 96 (74-99) mg/dL Calcium 9.0 (8.4-10.2) mg/dL Total Bilirubin 0.4 (0.2-1.3) mg/dL AST 28 (14-36) U/L ALT 22 (4-34) U/L Alkaline Phosphatase 135 H (38-126) U/L Total Protein 6.9 (6.3-8.2) g/dL Albumin 4.1 (3.5-5.0) g/dL Urine Color Urine Appearance (Clear) Urine pH (5.0-8.0) Ur Specific [place] (1.001-1.035) Urine Protein (Negative) Urine Glucose (UA) (Negative) Urine Ketones (Negative) Urine Blood (Negative) Urine Nitrite (Negative) Urine Bilirubin (Negative) Urine Urobilinogen (<2.0) mg/dL Ur Leukocyte Esterase (Negative) C. difficile (EIA) Intrp (Negative) Influenza Type A (PCR) Not Detected (Not Detectd) Influenza Type B (PCR) Not Detected (Not Detectd) RSV (PCR) Not Detected (Not Detectd) SARS-CoV-2 (PCR) Detected A (Not Detectd) 06/08/23 06/08/23 Range/Units 11:15 12:48 WBC (3.8-10.6) k/uL RBC (3.80-5.40) m/uL Hgb (11.4-16.0) gm/dL Hct (34.0-46.0) % MCV (80.0-100.0) fL MCH (25.0-35.0) pg MCHC (31.0-37.0) g/dL RDW (11.5-15.5) % Plt Count (150-450) k/uL MPV Neutrophils % % Lymphocytes % % Monocytes % % Eosinophils % % Basophils % % Neutrophils # (1.3-7.7) k/uL Lymphocytes # (1.0-4.8) k/uL Monocytes # (0-1.0) k/uL Eosinophils # (0-0.7) k/uL Basophils # (0-0.2) k/uL Sodium (137-145) mmol/L Potassium (3.5-5.1) mmol/L Chloride (98-107) mmol/L Carbon Dioxide (22-30) mmol/L Anion Gap mmol/L BUN (7-17) mg/dL Creatinine (0.52-1.04) mg/dL Est GFR (CKD-EPI)AfAm (>60 ml/min/1.73 sqM) Est GFR (CKD-EPI)NonAf (>60 ml/min/1.73 sqM) Glucose (74-99) mg/dL Calcium (8.4-10.2) mg/dL Total Bilirubin (0.2-1.3) mg/dL AST (14-36) U/L ALT (4-34) U/L Alkaline Phosphatase (38-126) U/L Total Protein (6.3-8.2) g/dL Albumin (3.5-5.0) g/dL Urine Color Colorless Urine Appearance Clear (Clear) Urine pH 5.0 (5.0-8.0) Ur Specific [place] 1.007 (1.001-1.035) Urine Protein Negative (Negative) Urine Glucose (UA) Negative (Negative) Urine Ketones Negative (Negative) Urine Blood Negative (Negative) Urine Nitrite Negative (Negative) Urine Bilirubin Negative (Negative) Urine Urobilinogen <2.0 (<2.0) mg/dL Ur Leukocyte Esterase Negative (Negative) C. difficile (EIA) Intrp Negative (Negative) Influenza Type A (PCR) (Not Detectd) Influenza Type B (PCR) (Not Detectd) RSV (PCR) (Not Detectd) SARS-CoV-2 (PCR) (Not Detectd) Disposition Clinical Impression: COVID-19, Diarrhea Disposition: HOME SELF-CARE Condition: Stable Instructions (If sedation given, give patient instructions): COVID-19 (Coronavirus Disease 2019) (ED) Additional Instructions: Please return to the Emergency Department if symptoms worsen or any other concerns. Is patient prescribed a controlled substance at d/c from ED?: No Referrals: Orville Gutierrez DO [Primary Care Provider] - 1-2 days Time of Disposition: 14:49
[2023-06-08 15:16] VITALS: BP 126/78; PULSE 76; TEMP 98.4
== END 2023-06-08 14:59 | disposition home or self-care (01) ==
LOC: EC 10:35
DX: U07.1 COVID-19 (principal); E78.5 Hyperlipidemia, unspecified; J45.909 Unspecified asthma, uncomplicated; K21.9 Gastro-esophageal reflux disease without esophagitis; E07.9 Disorder of thyroid, unspecified; F17.200 Nicotine dependence, unspecified, uncomplicated; F41.9 Anxiety disorder, unspecified; F32.A Depression, unspecified; Z79.51 Long term (current) use of inhaled steroids; Z79.890 Hormone replacement therapy; Z79.899 Other long term (current) drug therapy; Z88.0 Allergy status to penicillin; Z88.5 Allergy status to narcotic agent; Z88.8 Allergy status to other drugs, medicaments and biological substances
CPT/HCPCS: 36415; 80053; 85025; 81003; 87324; 87636; 99284; 96374; 96361; J1885

== ENCOUNTER → 2023-09-10 | Outpatient (CLI) | payer MEDICARE ==
--- NOTE | 2023-09-11 22:11 | MM ---
Reason for Exam: Screening (asymptomatic). Last mammogram was performed 6 year(s) and 4 month(s) ago. Patient History: Menarche at age 10. First Full-Term at age 21. Postmenopausal. Patient used Hormonal Contraceptives for 10 years. Excisional Biopsy on the Left side. Risk Values: Rosa Maria 5 year model risk: 1.8%. NCI Lifetime model risk: 6.6%. Prior Study Comparison: 05/07/2016 Bilateral Screening Mammogram, [facility]. 05/14/2017 Bilateral Screening Mammogram, [facility]. 05/28/2017 Left Diagnostic Mammogram, [facility]. Tissue Density: The breast tissue is heterogeneously dense. This may lower the sensitivity of mammography. Findings: Analyzed By CAD. Unchanged bilateral areas of asymmetric density. There is no suspicious group of microcalcifications or new suspicious mass in either breast. Overall Assessment: Benign, BI-RAD 2 Management: Screening Mammogram of both breasts in 1 year. . Patient should continue monthly self-breast exams. A clinical breast exam by your physician is recommended on an annual basis. This exam should not preclude additional follow-up of suspicious palpable abnormalities. Note on Rosa Maria scores and lifetime risk: 1. A Rosa Maria score greater than 3% is considered moderate risk. If this is the case, consider specialist referral to assess eligibility for a risk reducing agent. 2. If overall lifetime risk for the development of breast cancer is 20% or higher, the patient may qualify for future screening with alternating mammogram and breast MRI. Electronically signed and approved by: Bernie Bower M.D. Radiologist
== END | disposition home or self-care (01) ==
LOC: RADMAMWWP 08:45
PROVIDERS: ATTEND Family Medicine
DX: Z12.31 Encounter for screening mammogram for malignant neoplasm of breast (principal); Z78.0 Asymptomatic menopausal state
CPT/HCPCS: 77063; 77067

== ENCOUNTER → 2023-09-15 | Outpatient (CLI) | payer MEDICARE, OTHER ==
--- NOTE | 2023-09-15 14:36 | P.PAINPG ---
PQRS Measure Charge Sheet Comment: HISTORY OF PRESENT ILLNESS: A 63 yr old female as a referral from [facility] presents today w severe and chronic LBP x 20 yrs secondary to DDD, spondylosis and facet arthropathy without myelopathy for evaluation. Pt states pain level is provoked at 10/10 in intensity, constant, localized in the lumbar spine, predominantly axial, stabbing in character w occasional shooting pain towards the BL hips. Pain is provoked by sitting/ standing in 1 position for periods > 20 min. Pain is alleviated by PT in 2020, physician guided stretches 5 times weekly since 2020, chiropractic treatments monthly as needed w last visit in 2022, alternating heat & ice, medications (Ibu, Advil), topical Icy-Hot, repositioning and rest. Oswestry axial pain score at 29. PMH: OA, Asthma, GERD, Hyperlipidemia, MVP, Hypothyroid Disorder, IBS, MDD/ Anxiety PSH: HH Repair, Adenoidectomy, L Breast Lumpectomy, C- Section, Cholecystectomy, R ACL Repair, R Great Toe Surgery, BL Bunionectomy x2, Tonsillectomy, BL CTR, Nose/ Sinus Surgery SH: Daily tobacco use, Occasional ETOH use, No illicit drug use FH: Mo- Multiple Myeloma. Fa- Skin CA, CVA. All: See list Meds: See list REVIEW OF ORGAN SYSTEMS: CONSTITUTIONAL: No fevers or chills. No recent weight loss. NEUROLOGICAL: + numbness and tingling along the distal extremities. No seizure disorders or headaches. MUSCULOSKELETAL: + pain PSYCHIATRIC: Denies current depression or suicidal thoughts. Physical Examinations : Constitutional : Cooperative , not in acute distress . Neurologic : Cranial nerve II to XII intact. No focal neurological deficits. Psychiatric : alert & oriented x 3. Matching mood & appropriate affect. Judgment & insight intact. Musculoskeletal : Cervical Spine Motor strength in the deltoid and biceps: Normal right side. Normal Left side Motor strength biceps and the wrist extensors: Normal right side . Normal left side Motor strength in the triceps muscle: Normal right side. Normal left side Deep tendon reflexes: Normal at the biceps. Normal at Brachioradialis. Normal at triceps Vertebral body tenderness to deep palpation over Cervical facet loading test: positive bilaterally Spurling test: positive bilaterally Neck distraction test: positive bilaterally Terrence sign: positive bilaterally Lumbar spine Motor strength lower extremities ,thigh and legs 5/5 Right side , 5/5 Left side Deep tendon reflexes : Normal Knee Jerk. Normal Ankle Jerk Vertebral body tenderness over Robertson Test positive Lumbar facet Loading Test: positive Right / positive Left Range of motion of the lumbar spine Flexion 30 degrees, extension 10 degrees Straight Leg Raise test: Left/ Right positive at degrees Carrington test: positive right / positive left. Severe tenderness over the Sacroiliac joint on the Right / Left sides Gaenslen test: positive bilaterally Seated flexion test: positive bi laterally. Sacral spine : Severe tenderness over the Sacroiliac joint: right side / left side Range of motion: Flexion of the lumbar spine <60 degrees Range of motion: Extension of the lumbar spine <20 degrees Gaenslen's Test positive Carrington test: positive right side / left side Thigh Thrust Test Sacral Thrust Test Imaging: X-ray of the BL hips and lumbar spine from 09/02/22 reviewed Assessment/ Plan : Lumbar DDD Recommendation of MRI lumbar spine M51.36 May need additional testing if indicated. RTC in 2 wks for a re evaluation. Follow up w Dr Pederson for additional treatment options for BL hip pain. All questions answered. I have spent greater than 30 minutes on patient care today. Dr Ware was available by phone for the evaluation of this patient. The time was used to review the medical records including relevant urine studies and Prescription history (MAPs), review of the available imaging, evaluation and examination of the patient, coordination of care with the medical staff and if applicable referring physicians, as well as creation of the medical record PQRS Narrative: Smoking Status Current every day smoker Home Medications: Ambulatory Orders Ascorbic Acid [Vitamin C] 1,000 mg PO DAILY 04/03/16 Levothyroxine Sodium [Synthroid] 75 mcg PO DAILY 04/03/16 Cholecalciferol [Vitamin D3 (25 Mcg = 1000 Iu)] 25 mcg PO DAILY 04/07/18 DULoxetine HCL [Cymbalta] 60 mg PO DAILY 04/07/18 Montelukast [Singulair] 10 mg PO DAILY 04/07/18 Atorvastatin [Lipitor] 20 mg PO HS 01/12/23 Budesonide/Formoterol Fumarate [Symbicort 160-4.5 Mcg Inhaler] 2 puff INHALATION RT-BID 01/12/23 Ipratropium [place] [Atrovent Hfa] 2 puff INHALATION RT-QID PRN 01/12/23 Isosorbide Dinitrate [Isordil] 15 mg PO DAILY 01/12/23 Melatonin 5 mg PO HS 01/12/23 Nitroglycerin Sl Tabs [Nitrostat] 0.4 mg SL Q5M PRN 01/12/23 Zinc Gluconate [Zinc] 50 mg PO DAILY 01/12/23 bisacodyL [Dulcolax] 5 mg PO DAILY 01/12/23 Controlled Substance Measures - Controlled Substance Measures Is patient prescribed a controlled substance at discharge?: No
[2023-09-15 14:45] VITALS: BP 137/82; PULSE 97; RESP 15; TEMP 98.2
== END ==
LOC: PNWHC3 13:20
PROVIDERS: ATTEND Specialist
DX: M16.0 Bilateral primary osteoarthritis of hip (principal); M51.37 Other intervertebral disc degeneration, lumbosacral region; J45.909 Unspecified asthma, uncomplicated; K21.9 Gastro-esophageal reflux disease without esophagitis; E78.5 Hyperlipidemia, unspecified; E03.9 Hypothyroidism, unspecified; F32.9 Major depressive disorder, single episode, unspecified; F41.9 Anxiety disorder, unspecified; K58.9 Irritable bowel syndrome, unspecified; F17.200 Nicotine dependence, unspecified, uncomplicated; Z79.890 Hormone replacement therapy; Z79.51 Long term (current) use of inhaled steroids; Z88.6 Allergy status to analgesic agent; Z88.0 Allergy status to penicillin; Z91.09 Other allergy status, other than to drugs and biological substances
CPT/HCPCS: 99211

== ENCOUNTER 2023-10-16 08:24 | Day surgery (SDC) | payer MEDICARE ==
[2023-10-14 11:21] VITALS: BMI 24.7
[2023-10-16] MEDS ORDERED: LACTATED RINGERS 1,000 ML IV SCH (08:43)
[2023-10-16 09:08] VITALS: TEMP 97.1
[2023-10-16] MEDS ORDERED: IOPAMIDOL M300 15ML VIAL ONE (09:20)
[2023-10-16] MEDS ORDERED: ROPIVACAINE 5MG/ML 20ML VIAL ONE (09:20)
[2023-10-16] MEDS ORDERED: methylPREDNISolone ACETATE 80 MG/ML 1 ML VIAL ONE (09:20)
--- NOTE | 2023-10-16 09:43 | P.PCN ---
Description of Procedure: PREOPERATIVE DIAGNOSIS: 1- Lumbar Degenerative Disc Diseases 2-Lumbar spondylosis with Facet arthropathy without myelopathy. 3-lumbar spinal stenosis POSTOPERATIVE DIAGNOSIS: 1-lumbar degenerative disc disease. 2-lumbar spondylosis with facet arthropathy without myelopathy. 3-lumbar spinal stenosis. PROCEDURE Injection of radio contrast material into L4-5 interspace, interpretation of epidurogram, injection of steroid at L4- 5 epidural space under fluoroscopic guidance. ANESTHESIA: Lidocaine 1% subcutaneously. In OR continuous pulse ox, EKG, blood pressure and verbal communication was maintained with the patient. EBL: Minimal PROCEDURE INDICATION: Before the procedure were discussed with the patient detailed procedure, alternatives, complications including infection, bleeding, nerve damage, paralysis all of which could be permanent. Patient understands and all questions were answered. PROCEDURE DESCRIPTION : After getting consent, patient in OR in prone position. Back was prepped with chlorhexidine and draped in sterile fashion. After injecting 10 mL of 1% lidocaine subcutaneously, a 20-gauge Tuohy needle was introduced at L4 5 interspace with loss of resistance technique using a syringe filled with air. Negative CSF, negative blood, negative paresthesia. Needle position was confirmed with AP and lateral view of the fluoroscope. After repeat negative aspiration 2 mL of Omnipaque 200 water soluble contrast was injected. Contrast was noted in the epidural space. No contrast was noted into intrathecal or intravascular space. After repeat negative aspiration 6 mL solution was injected intermittently which consists of 5 mL of preservative-free normal saline mixed with 1 mL of 80 mg Depo-Medrol. Needle was withdrawn intact. Skin was cleansed and Band-Aids was applied. DISPOSITION / PLANS: The patient tolerated the procedure well. No complication. The patient was placed in a supine position and transferred to the recovery area in a stable condition for observation. There was no evidence of lower extremity motor or sensory deficit after the procedure. Patient was discharged from the recovery room after meeting discharge criteria. Home discharge instructions were given to the patient by the staff. The patient was reexamined prior to discharge. The patient will schedule a follow up in the clinic in 2-4 weeks.
[2023-10-16 09:44] VITALS: RESP 18
--- NOTE | 2023-10-16 10:12 | FL ---
EXAMINATION TYPE: FL guided pain mgmt statistic Intraoperative/procedural fluoroscopic services were provided. Total fluoroscopy time is 7.9 seconds with a total of 2 submitted images to PACS. Please se e the operative/procedural note for further details. DAP: 0.19992 mGym2
[2023-10-16 10:21] VITALS: BP 122/79; PULSE 80
== END 2023-10-16 09:58 | disposition home or self-care (01) ==
LOC: ORPAIN 08:24
PROVIDERS: ATTEND Pain Medicine Interventional Pain Medicine
DX: M51.36 Other intervertebral disc degeneration, lumbar region (principal); M47.816 Spondylosis without myelopathy or radiculopathy, lumbar region; M48.061 Spinal stenosis, lumbar region without neurogenic claudication; Z88.0 Allergy status to penicillin; Z88.6 Allergy status to analgesic agent; Z88.8 Allergy status to other drugs, medicaments and biological substances; Z88.9 Allergy status to unspecified drugs, medicaments and biological substances
CPT/HCPCS: 62323; J1040; Q9967; J2795

== ENCOUNTER → 2023-11-12 | Outpatient (CLI) | payer MEDICARE ==
[2023-11-12 12:43] VITALS: BP 137/89; PULSE 73; RESP 16
--- NOTE | 2023-11-12 14:58 | P.PAINPG ---
PQRS Measure Charge Sheet Comment: HISTORY OF PRESENT ILLNESS: A 63 yr old female presents today w severe and chronic LBP x 20 yrs secondary to DDD, spondylosis and facet arthropathy without myelopathy for evaluation s/p RUPA L4-L5 #1. Pt states she. Pt states pain level is provoked at 10/10 in intensity, constant, localized in the lumbar spine, predominantly axial, stabbing in character w occasional shooting pain towards the BL hips. Pain is provoked by sitting/ standing in 1 position for periods > 20 min. Pain is alleviated by PT in 2020, physician guided stretches 5 times weekly since 2020, chiropractic treatments monthly as needed w last visit in 2022, alternating heat & ice, medications, topical , repositioning and rest. Oswestry axial pain score at 28. Interventional procedures include RUPA L4-L5 x1 Medications include Ibu, Advil, Icy-Hot REVIEW OF ORGAN SYSTEMS: CONSTITUTIONAL: No fevers or chills. No recent weight loss. NEUROLOGICAL: + numbness and tingling along the distal extremities. No seizure disorders or headaches. MUSCULOSKELETAL: + pain PSYCHIATRIC: Denies current depression or suicidal thoughts. Physical Examinations : Constitutional : Cooperative , not in acute distress . Neurologic : Cranial nerve II to XII intact. No focal neurological deficits. Psychiatric : alert & oriented x 3. Matching mood & appropriate affect. Judgment & insight intact. Musculoskeletal : Cervical Spine Motor strength in the deltoid and biceps: Normal right side. Normal Left side Motor strength biceps and the wrist extensors: Normal right side . Normal left side Motor strength in the triceps muscle: Normal right side. Normal left side Deep tendon reflexes: Normal at the biceps. Normal at Brachioradialis. Normal at triceps Vertebral body tenderness to deep palpation over Cervical facet loading test: positive bilaterally Spurling test: positive bilaterally Neck distraction test: positive bilaterally Terrence sign: positive bilaterally Lumbar spine Motor strength lower extremities ,thigh and legs 5/5 Right side , 5/5 Left side Deep tendon reflexes : Normal Knee Jerk. Normal Ankle Jerk Vertebral body tenderness over L4 Robertson Test positive L4-L5 Lumbar facet Loading Test: positive Right / positive Left Range of motion of the lumbar spine Flexion 30 degrees, extension 10 degrees Straight Leg Raise test: Left/ Right positive at degrees Carrington test: positive right / positive left. Severe tenderness over the Sacroiliac joint on the Right / Left sides Gaenslen test: positive bilaterally Seated flexion test: positive bilaterally. Sacral spine : Severe tenderness over the Sacroiliac joint: right side / left side Range of motion: Flexion of the lumbar spine <60 degrees Range of motion: Extension of the lumbar spine <20 degrees Gaenslen's Test positive Carrington test: positive right side / left side Thigh Thrust Test Sacral Thrust Test Imaging: X-ray of the BL hips and lumbar spine from 09/02/22 reviewed MRI non contrast of the lumbar spine from 09/24/23 reviewed Assessment/ Plan : Lumbar DDD Recommendation of medication management. Has upcoming BL hip surgery scheduled for November 2023. [place] 7.5/325mg #60 w 1 RF. Use, side effects, adverse reactions, safe storage discussed. Opiate/ narcotic agreement signed 11/12/23. Pt acknowledged understanding. All questions answered. I have spent greater than 30 minutes on patient care today. Dr Ware was available by phone for the evaluation of this patient. The time was used to review the medical records including relevant urine studies and Prescription history (MAPs), review of the available imaging, evaluation and examination of the patient, coordination of care with the medical staff and if applicable referring physicians, as well as creation of the medical record PQRS Narrative: Smoking Status Current every day smoker Hx Alcohol Use (MH) No Home Medications: Ambulatory Orders Ascorbic Acid [Vitamin C] 1,000 mg PO DAILY 04/03/16 Levothyroxine Sodium [Synthroid] 75 mcg PO DAILY 04/03/16 Cholecalciferol [Vitamin D3 (25 Mcg = 1000 Iu)] 25 mcg PO DAILY 04/07/18 DULoxetine HCL [Cymbalta] 60 mg PO DAILY 04/07/18 Montelukast [Singulair] 10 mg PO DAILY 04/07/18 Budesonide/Formoterol Fumarate [Symbicort 160-4.5 Mcg Inhaler] 2 puff INHALATION RT-BID 01/12/23 Ipratropium [place] [Atrovent Hfa] 2 puff INHALATION RT-QID PRN 01/12/23 Isosorbide Dinitrate [Isordil] 15 mg PO DAILY 01/12/23 Melatonin 10 mg PO HS 01/12/23 Nitroglycerin Sl Tabs [Nitrostat] 0.4 mg SL Q5M PRN 01/12/23 Zinc Gluconate [Zinc] 50 mg PO DAILY 01/12/23 HYDROcodone/APAP 7.5-325MG [[place] 7.5-325] 1 tab PO BID PRN 30 Days #60 tab 11/12/23 HYDROcodone/APAP 7.5-325MG [[place] 7.5-325] 1 tab PO BID PRN 30 Days #60 tab 11/12/23 Controlled Substance Measures - Controlled Substance Measures Is patient prescribed a controlled substance at discharge?: Yes When asked, does pt state using other controlled substances?: No If prescribed controlled substance>3 days was MAPS reviewed?: Yes If Rx opioid, was Start Talking consent form obtained?: Yes Was information provided regarding opioid addiction?: Yes
== END ==
LOC: PNWHC3 11:07
PROVIDERS: ATTEND Specialist
DX: M51.36 Other intervertebral disc degeneration, lumbar region (principal); M47.816 Spondylosis without myelopathy or radiculopathy, lumbar region; F17.200 Nicotine dependence, unspecified, uncomplicated; Z88.6 Allergy status to analgesic agent; Z91.09 Other allergy status, other than to drugs and biological substances; Z88.0 Allergy status to penicillin
CPT/HCPCS: 99211

== ENCOUNTER → 2023-12-16 | Outpatient (CLI) | payer MEDICARE | END | disposition home or self-care (01) | LOC: LABPAT 12:45 | PROVIDERS: ATTEND Orthopaedic Surgery | DX: Z01.812 Encounter for preprocedural laboratory examination (principal); M16.11 Unilateral primary osteoarthritis, right hip; Z22.322 Carrier or suspected carrier of Methicillin resistant Staphylococcus aureus | CPT/HCPCS: 86850; 86900; 86901; 87070 ==

== ENCOUNTER 2023-12-23 08:21 | Day surgery (SDC) | payer MEDICARE ==
[2023-12-18 12:11] VITALS: BMI 26.9
--- NOTE | 2023-12-22 10:12 | P.HPOR ---
History of Present Illness H&P Date: 12/22/23 Chief Complaint: Right hip pain The patient is a 63-year-old female presents with progressive right hip pain for the past several years. It's worsened recently. She notes anterior groin and thigh pain with weightbearing activities. She notes significant stiffness. She tried therapy with worsening of her symptoms. She is having night pain. She's also tried medications. She notes daily pain that limits her. Review of Systems As per HPI Past Medical History Past Medical History: Asthma, GERD/Reflux, GI Bleed, Hyperlipidemia, Mitral Valve Prolapse (MVP), Osteoarthritis (OA), Skin Disorder, Thyroid Disorder Additional Past Medical History / Comment(s): IBS, hx COLITIS A LONG TIME AGO, STRESS INCONTINENCE OF URINE, occasional migraines, dermatitis, heart palpitations, "low BP, History of Any Multi-Drug Resistant Organisms: MRSA Date of last positivie culture/infection: 2010 MDRO Source:: knee-2008, rt thumb 2010 Past Surgical History: Adenoidectomy, Appendectomy, Breast Surgery, Section, Cholecystectomy, Orthopedic Surgery, Tonsillectomy Additional Past Surgical History / Comment(s): RT knee ACL surgery, RT GREAT TOE FUSION, bilateral carpel tunnel, nose/sinus surgery, bilateral bunionectomy(right X2), surgery for tubal , left breast lumpectomy, Hiatal hernia surgery, surgery to correct Acid Reflux. Past Anesthesia/Blood Transfusion Reactions: Previous Problems w/ Anesthesia Additional Past Anesthesia/Blood Transfusion Reaction / Comment(s): "Woke up during surgery." Smoking Status: Former smoker, Vaper - Past Family History Mother Family Medical History: Cancer Additional Family Medical History / Comment(s): MULTIPLE MYELOMA. Father Family Medical History: Cancer, CVA/TIA Additional Family Medical History / Comment(s): Skin cancer. Medications and Allergies Home Medications Medication Instructions Recorded Confirmed Type Ascorbic Acid [Vitamin C] 1,000 mg PO DAILY 04/03/16 12/18/23 History Levothyroxine Sodium [Synthroid] 75 mcg PO DAILY 04/03/16 12/18/23 History Cholecalciferol [Vitamin D3 (25 25 mcg PO DAILY 04/07/18 12/18/23 History Mcg = 1000 Iu)] DULoxetine HCL [Cymbalta] 60 mg PO DAILY 04/07/18 12/18/23 History Montelukast [Singulair] 10 mg PO DAILY 04/07/18 12/18/23 History Budesonide/Formoterol Fumarate 2 puff INHALATION RT-BID 01/12/23 12/18/23 History [Symbicort 160-4.5 Mcg Inhaler] Ipratropium [place] [Atrovent Hfa] 2 puff INHALATION RT-QID PRN 01/12/23 12/18/23 History Isosorbide Dinitrate [Isordil] 15 mg PO DAILY 01/12/23 12/18/23 History Melatonin 10 mg PO HS 01/12/23 12/18/23 History Nitroglycerin Sl Tabs [Nitrostat] 0.4 mg SL Q5M PRN 01/12/23 12/18/23 History Zinc Gluconate [Zinc] 50 mg PO DAILY 01/12/23 12/18/23 History Naproxen Sodium [Aleve] 220 mg PO DAILY 12/18/23 12/18/23 History Allergies Allergy/AdvReac Type Severity Reaction Status Date / Time aspirin Allergy Abdominal Verified 12/18/23 10:56 Pain nickel Allergy itching, Verified 12/18/23 10:56 rash Penicillins Allergy Rash/Hives Verified 12/18/23 10:56 Physical Examination - Hip right Gait: antalgic Tenderness with palpation: anterior Pain with motion: internal rotation and hip flexion ROM: flexion: 80 degrees ROM: internal rotation: 10 degrees (With pain) ROM: external rotation: 60 degrees Crepitus with motion: Yes Strength: extension: 5/5 Strength: flexion: 5/5 Strength: abduction: 5/5 Results Patient is a well-developed well-nourished female proximal 5 foot 3, 150 pounds of mesomorphic habitus. HEENT exam is nonfocal, neck is supple. She has painful passive motion of both hips. Her distal neurovascular appears intact in the right lower extremity. - Diagnostic results Hip x-ray: image reviewed (Xrays of the right hip obtain the office show severe osteoarthrosis with subchondral sclerosis and [id number] changes.) Assessment and Plan Assessment: Right hip severe osteoarthrosis Plan: I talked to the patient at length regarding her condition along with treatment options. At this point she is quite symptomatic and limited because of pain related to her right hip osteoarthrosis despite previous conservative measures. After a thorough discussion she opts to proceed with surgery. We will plan to proceed with right total hip arthroplasty utilizing an anterior approach. Risks and benefits were discussed at length in layman's terms. We will institute DVT prophylaxis postoperatively.
[~2023-12-23 08:21] MED LIST changes: +HYDROmorphone 0.5 MG/0.5 ML SYRINGE IVP PRN; -LACTATED RINGERS 1,000 ML IV SCH; +LIDOCAINE 1% (10MG/ML) FOR IV START INTRADERMA PRN; -LIDOCAINE 1% 20 ML VIAL (10MG/ML) FOR IV START INTRADERMA PRN; +TRANEXAMIC 1,000 MG/100ML-NACL 1,000 MG in SALINE 1 100ML.BAG IVPB PRN
[2023-12-23] MEDS: LACTATED RINGERS 1,000 ML IV SCH (08:47)
[2023-12-23] MEDS: ONDANSETRON 4 MG/2 ML VIAL IVP ONE (08:53)
[2023-12-23] MEDS: ACETAMINOPHEN TAB 500 MG TAB PO PRN (08:53)
[2023-12-23] MEDS: DEXAMETHASONE SOD PHOSPHATE 4 MG/ML 1 ML VIAL IVP ONE (08:53)
[2023-12-23] MEDS: MELOXICAM 7.5 MG TAB PO PRN (08:53)
[2023-12-23] MEDS: MIDAZOLAM 2 MG/2 ML VIAL IVP ONE (09:27)
--- NOTE | 2023-12-23 09:53 | P.ANPRN ---
Procedure Note - Anesthesia - Nerve Block Performed Right [place] Single Time Out Performed: Yes (82) Date of Procedure: 12/23/23 Location of Patient: PreOp Indication: Acute Post-Operative Pain, Analgesia, Dx/Pain Location, Requested by Surgeon Specifically requested for management of pain by DrMandeep: Thiago Noriega Sedation Type: Sedate with meaningful contact maintained Preparation: Sterile Prep Position: Supine Catheter: None Needle Types: Pajunk Needle Gauge: 21 (100 mm) Ultrasound used to visualize needle placement: Yes Ultrasound used to observe medication spread: Yes Injectate: 0.5% Ropivacaine (see comment for volume) (20 mL pedis and 10 cc of normal saline + 4mg of decadron) Blood Aspirated: No Pain Paresthesia on Injection Noted: No Resistance on Injection: Normal Image Stored and Saved: Yes Events: Uneventful and Well Tolerated
[2023-12-23] MEDS ORDERED: fentaNYL (PF) 50 MCG/ML 2 ML AMP ONE (10:58)
[2023-12-23] MEDS ORDERED: ePHEDrine 50 MG/ML 1 ML VIAL ONE (10:58)
[2023-12-23] MEDS ORDERED: MIDAZOLAM 2 MG/2 ML VIAL ONE (10:58)
[2023-12-23] MEDS ORDERED: ROPIVACAINE 5 MG/ML 30 ML VIAL ONE (10:58)
[2023-12-23] MEDS ORDERED: PROPOFOL 10 MG/ML 20 ML VIAL IV ONE (10:58)
[2023-12-23] MEDS ORDERED: TRANEXAMIC 1,000 MG/100ML-NACL PREMIX BAG ONE (10:58)
[2023-12-23] MEDS ORDERED: PHENYLEPHRINE-0.9% NACL SYG 1,000 MCG/10 ML SYRINGE ONE (10:58)
[2023-12-23] MEDS ORDERED: DEXAMETHASONE SOD PHOSPHATE 4 MG/ML 1 ML VIAL ONE (10:58)
[2023-12-23] MEDS ORDERED: SODIUM CHLORIDE 0.9% (PF) 10 ML VIAL ONE (10:58)
[2023-12-23] MEDS ORDERED: NALOXONE 0.4 MG/ML 1 ML VIAL IV PRN (12:07)
[2023-12-23] MEDS ORDERED: MAGNESIUM HYDROXIDE 2,400 MG/30 ML CUP PO PRN (12:07)
[2023-12-23] MEDS ORDERED: HYDROmorphone 0.5 MG/0.5 ML SYRINGE IVP PRN (12:07)
--- NOTE | 2023-12-23 12:09 | P.OP ---
Date of Procedure: 12/23/23 Preoperative Diagnosis: Right hip severe osteoarthrosis Postoperative Diagnosis: Same Procedure(s) Performed: Right total hip arthroplastypress-fitanterior approach Implants: Depuy Corail size 13-125 degree high offset collared press-fit femoral stem, 36+1.5 ceramic femoral head, 56 mm [place] acetabular shell with neutral polyethylene liner. Anesthesia: regional, spinal Surgeon: Thiago Noriega Lead Principal Technical Architect #1: Dileep Miller Estimated Blood Loss (ml): 100 Pathology: none sent Condition: stable Disposition: PACU Indications for Procedure: The patient is a 63-year-old female who presents with progressive right hip pain secondary to osteoarthrosis despite conservative measures. A discussion of the risks and benefits of operative intervention versus continued conservative measures was made with the patient. She opted to proceed with surgery. Operative risks include infection, neurovascular injury, development of blood clots, leg length discrepancy, fracture, possible component loosening/component failure, possible instability, and possible need for subsequent procedures was discussed. Informed consent was obtained. Operative Findings: As below Description of Procedure: The patient was brought to the operating room, and after induction of spinal anesthesia was placed supine on the Monalisa table. Positioning was checked with fluoroscopy. The right hip was then prepped and draped in a normal fashion. A 12 cm incision was then made starting 2 fingerbreadths distal and 3 finger breaths posterior to the ASIS in line with the proximal femur. The skin was incised sharply. Subcutaneous tissues were divided sharply. Electrocautery was used for hemostasis. The fascia was split in line with skin incision. The interval between the sartorius and tensor fascia elsi was then bluntly developed. The posterior fascia was opened with electrocautery. The lateral circumflex vessels were identified and cauterized prior to sectioning. A retractor was placed along the superior femoral neck as well as the anterior acetabular rim. A wide capsulotomy was performed. The neck cut was then made at a 45 angle to the shaft approximately 1 1/2 cm above the level of the lesser trochanter. The head was extracted. Attention was then paid towards preparing the acetabulum. Anterior and posterior retractors were placed. The remaining capsular labral tissue sharply debrided clearly defining the acetabular margins. I began reaming with a 51 mm reamer taking care to initially medialize then reaming at 45 of abduction and 20 of anteversion. Sequential reaming is performed up to 55 mm. A trial 56 mm acetabular shell was inserted in the same orientation and was fully seated. There was good rim fit and stability. Positioning was checked with fluoroscopy. The final 56 mm acetabular shell was inserted again at 45 of abduction and 20 of anteversion. This was fully seated. There was good rim fit and stability. Again fluoroscopy was used to check the adequacy of placement. A neutral polyethylene liner was gently impacted. Care was taken to avoid any soft tissue interposition. Pulsatile lavage was utilized. Attention was then paid towards preparing the proximal femur. The saddle region was cleared of soft tissue. A canal finder was used to find the femoral canal. Sequential broaching was performed up to size 13 taking care to lateralize proximally. A calcar mill was used to fashion the medial calcar. There was good rotational stability. A 125 degree high offset neck along with a 36 mm +1.5 head was placed. The hip was ge ntly reduced. Fluoroscopy was used to check the adequacy of positioning along with leg lengths. I felt both were good. The hip was gently dislocated. The trial components were removed. The final size 13 collared standard press-fit femoral stem was inserted parallel to the posterior cortex. This was fully seated and there was good rotational stability. A 36 mm +1.5 ceramic femoral head was placed. This was gently impacted. The hip was then gently reduced. Final fluoroscopic view showed adequate placement implant along with confucianist of leg length. Stability was checked with 80 of external rotation and 60 of extension of the right hip. The wound was irrigated with pulsatile lavage. The fascia was closed with running 0 Vicryl suture. There was minimal drainage therefore a deep drain was not placed. The second dose of IV TXA was given. The subcutaneous tissues were reapproximated interrupted 2-0 Vicryl sutures. The skin was reapproximated with 3-0 subcuticular strata fix suture. Skin tape and adhesive was applied. A sterile dressing was applied. The patient was then awoken from sedation and transferred to recovery room in good condition. Blood loss was estimated at 100 mL. No complications were incurred. Sponge and needle counts were correct at the end of the case. Dileep STEWARD assisted during the major components is case to include exposure, bone resection, implantation, and closure.
--- NOTE | 2023-12-23 12:39 | XR ---
EXAMINATION TYPE: XR Hip Limited RT DATE OF EXAM: 12/23/2023 Comparison: 09/02/2022 Clinical History: 63-year-old female s/p right total hip Findings: Image shows placement of right total arthroplasty. Both acetabular cup and femoral stem components of the prosthesis appear well seated without periprosthetic fracture. Alignment grossly anatomic. Soft tissue air related to recent operation. Impression: Uncomplicated postoperative appearance right total hip arthroplasty.
--- NOTE | 2023-12-23 12:53 | XR ---
EXAMINATION TYPE: XR Hip Limited RT, [place] guidance operating room DATE OF EXAM: 12/23/2023 Comparison: None Clinical History: 63-year-old female Rt Hip-Ant Findings: anterior right hip replacement 39.9 seconds of fluoro time 2.1353 Gycm2 DAP [address] Noriega
[2023-12-23] MEDS: HYDROmorphone 0.5 MG/0.5 ML SYRINGE IVP PRN (14:50)
[2023-12-23] MEDS: HYDROcodone/APAP 7.5-325MG 1 EACH TAB PO PRN (17:10)
[2023-12-23] MEDS: SENNOSIDES-DOCUSATE SODIUM 1 EACH TAB PO SCH (20:05)
[2023-12-23] MEDS: hydrOXYzine pamoate 25 MG CAP PO PRN (22:24)
[2023-12-24] MEDS: HYDROcodone/APAP 5-325MG 1 EACH TAB PO PRN (05:52)
[2023-12-24 08:05] VITALS: BP 102/63; PULSE 77
[2023-12-24] MEDS: RIVAROXABAN 10 MG TAB PO SCH (08:09)
[2023-12-24 08:56] VITALS: RESP 16; TEMP 98.1
[2023-12-24 09:21] LABS: HCT 35.2 % (37.2-46.3); HGB 11.3 g/dL (12.0-15.0); MCH 31.1 pg (27.0-32.0); MCHC 32.1 g/dL (32.0-37.0); Mean Platelet Volume 10.9 FL (9.5-12.2); NRBC Per 100 WBC 0 X 10*3/uL (0.00-0.01); Platelet Count 341 X 10*3/uL (140-440); RBC 3.63 X 10*6/uL (4.10-5.20); RDW 13.2 % (11.5-14.5); WBC 13.58 X 10*3/uL (4.50-10.00)
--- NOTE | 2023-12-24 10:26 | P.DS ---
Providers Date of admission: 12/23/2023 Expected date of discharge: 12/24/23 Attending physician: Thiago Noriega Consults: 12/23/23 14:11 Consult Physician Routine Consulting Provider: Nestor Alba Consult Reason/Comments: medical management Do you want consulting provider notified?: Already Contacted Primary care physician: Orville Matt [facility] Course: Date of admission: 12/23/2023 Date of discharge: 12/24/2023 Admission diagnosis: Right hip osteoarthritis Discharge diagnosis: Same Attending physician: Dr. Noriega Surgical procedures: Direct anterior right total hip arthroplasty Brief history: Patient is a 63-year-old female with a history of progressive primary right hip osteoarthritis. At this point patient has failed conservative treatment measures and has opted to proceed with a elective direct anterior right total hip arthroplasty. Hospital course: Details of patient's surgery can be found in operative report. Patient tolerated the procedure well and was subsequently transported to orthopedic floor. Patient's orthopeidc and medical care was provided daily. Patient had daily laboratory tests performed for evaluation of overall blood counts. Patient had daily physical therapy to include strengthening range of motion as well as education with walker ambulation. Patient was treated with Xarelto for their postoperative DVT prophylaxis during their inpatient stay. Patient was noted to have a relatively uneventful postoperative course. Patient reported satisfactory pain control with oral pain medications by postoperative day 1. Patient showed satisfactory progress with physical therapy. Patient moved steadily through the program and had no difficulty meeting the goals by postoperative day 1. Given patient's otherwise satisfactory course and having met physical therapy goals, plan is to discharge patient home with health services on postoperative day 1. Discharge condition/disposition: Patient will be discharged home with health services in stable condition. Discharge medications: Instructions are given on resumption of patient's normal daily medications per primary care recommendation, in addition patient will be prescribed [place]; senna; Eliquis 2.5 mg twice daily x 2 weeks. Discharge instructions: 1. Wound care and infection precautions, keep incision dry and covered while showering, no lotions, creams, moisturizers. No soaking, tubs, pools, hottubs. Do not scrub over the incision. 2. Weight-bear as tolerated with walker / cane until follow-up. 3. Ice and elevate when necessary. Do not exceed 20 minutes per hour with ice pack. 4. Utilize compression sleeve until seen at first follow up appointment. 5. Visiting nursing care. 6. Home physical therapy including home CPM. 7. Pain meds and anticoagulants per prescription. 8. Pain medication has potential to cause constipation. Increase oral fluid and fiber intake. Contact primary care provider if you have not had a bowel movement within 48 hours after discharge 9. No anti-inflammatory medication until discussed at first post operative visit, this including Motrin, Aleve, Mobic, Diclofenac. 10. Follow up in office at 2 weeks postop with Jude Muniz PA-C / Dileep Mliler PA-C 11. Follow up with your primary care doctor 7-10 days after discharge. 12. Contact [facility] with any questions, . Assessment: Right hip osteoarthritis Procedures: Direct anterior right total hip arthroplasty Patient Condition at Discharge: Good Plan - Discharge Summary Discharge Rx Participant: Yes New Discharge Prescriptions: New Apixaban [Eliquis] 2.5 mg PO BID #60 tab HYDROcodone/APAP 7.5-325MG [[place] 7.5-325] 1 - 2 tab PO Q6HR PRN #32 tab PRN Reason: Pain Sennosides/Docusate Sodium [Senna Plus 8.6-50 mg Softgel] 1 each PO DAILY #20 capsule No Action Levothyroxine Sodium [Synthroid] 75 mcg PO DAILY Ascorbic Acid [Vitamin C] 1,000 mg PO DAILY Cholecalciferol [Vitamin D3 (25 Mcg = 1000 Iu)] 25 mcg PO DAILY Montelukast [Singulair] 10 mg PO DAILY DULoxetine HCL [Cymbalta] 60 mg PO DAILY Zinc Gluconate [Zinc] 50 mg PO DAILY Nitroglycerin Sl Tabs [Nitrostat] 0.4 mg SL Q5M PRN PRN Reason: Chest Pain Ipratropium [place] [Atrovent Hfa] 2 puff INHALATION RT-QID PRN PRN Reason: Shortness Of Breath Naproxen Sodium [Aleve] 220 mg PO DAILY Melatonin 10 mg PO HS Budesonide/Formoterol Fumarate [Symbicort 160-4.5 Mcg Inhaler] 2 puff INHALATION RT-BID Isosorbide Dinitrate [Isordil] 15 mg PO DAILY Discharge Medication List Ascorbic Acid [Vitamin C] 1,000 mg PO DAILY 04/03/16 [History] Levothyroxine Sodium [Synthroid] 75 mcg PO DAILY 04/03/16 [History] Cholecalciferol [Vitamin D3 (25 Mcg = 1000 Iu)] 25 mcg PO DAILY 04/07/18 [History] DULoxetine HCL [Cymbalta] 60 mg PO DAILY 04/07/18 [History] Montelukast [Singulair] 10 mg PO DAILY 04/07/18 [History] Budesonide/Formoterol Fumarate [Symbicort 160-4.5 Mcg Inhaler] 2 puff INHALATION RT-BID 01/12/23 [History] Ipratropium [place] [Atrovent Hfa] 2 puff INHALATION RT-QID PRN 01/12/23 [History] Isosorbide Dinitrate [Isordil] 15 mg PO DAILY 01/12/23 [History] Melatonin 10 mg PO HS 01/12/23 [History] Nitroglycerin Sl Tabs [Nitrostat] 0.4 mg SL Q5M PRN 01/12/23 [History] Zinc Gluconate [Zinc] 50 mg PO DAILY 01/12/23 [History] Naproxen Sodium [Aleve] 220 mg PO DAILY 12/18/23 [History] Apixaban [Eliquis] 2.5 mg PO BID #60 tab 12/24/23 [Rx] HYDROcodone/APAP 7.5-325MG [[place] 7.5-325] 1 - 2 tab PO Q6HR PRN #32 tab 12/24/23 [Rx] Sennosides/Docusate Sodium [Senna Plus 8.6-50 mg Softgel] 1 each PO DAILY #20 capsule 12/24/23 [Rx] Follow up Appointment(s)/Referral(s): Dileep Miller, ROBERT [PHYSICIAN FEED CRUSHER OPERATOR] - 2 Weeks Patient Instructions/Handouts: Anterior Hip Replacement (DC), Anterior Hip Replacement (GEN) Activity/Diet/Wound Care/Special Instructions: Orthopedic Discharge Instructions: 1. Wound care and infection precautions, keep incision dry and covered while showering, no lotions, creams, moisturizers. No soaking, pools, hot tubs. Do not scrub over incision. 2. Weight-bear as tolerated with walker / cane until follow-up. 3. Ice and elevate when necessary. Do not exceed 20 minutes per hour with ice pack. 4. Utilize compression sleeve until seen at first follow up appointment. 5. Pain meds and anticoagulants per prescription. 6. Pain medication has potential to cause constipation. Increase oral fluid and fiber intake. Contact primary care provider if you have not had a bowel movement within 48 hours after discharge. 7. No anti-inflammatory medication until discussed at first post operative visit, this including Motrin, Aleve, Mobic, Diclofenac. 8. Follow up in office at 2 weeks postop with Jude Muniz PA-C / Dileep Miller PA-C 9. Follow up with your primary care doctor 7-10 days after discharge. 10. Contact [facility] with any questions, . Keep incision clean, dry, intact. While showering, cover fusion tape with Saran wrap. Keep fusion tape on until follow-up appointment in office in 2 weeks Discharge Disposition: HOME WITH HOME HEALTH SERVICES
[2023-12-24 10:41] LABS: Basophils # (A) 0.02 X 10*3/uL (0.00-0.10); Basophils % (A) 0.1 %; Eosinophils # (A) 0.01 X 10*3/uL (0.04-0.35); Eosinophils % (A) 0.1 %; Lymphocytes # (A) 1.28 X 10*3/uL (0.90-5.00); Lymphocytes % (A) 9.4 %; Monocytes # (A) 1.99 X 10*3/uL (0.20-1.00); Monocytes % (A) 14.7 %; Neutrophils # (A) 10.18 X 10*3/uL (1.80-7.70); RBC Morphology Normal (Normal)
--- NOTE | 2023-12-24 13:14 | P.CONS ---
History of Present Illness - Reason for Consult Consult date: 12/24/23 - History of Present Illness History of present illness; patient is a 63-year-old lady with past medical history significant for hypothyroidism, depression, asthma who presented to the hospital for elective right hip total arthroplasty. Patient has been having right hip pain for the last few years, was following up outpatient with orthopedic surgery. Patient was having pain on ambulation and was having difficulty in doing her ADLs. Orthopedic ordered conservative measures and therapy but all that failed and decision was made to proceed with right hip total arthroplasty Initial lab work done in the ER showed Influenza A not detected Influenza B not detected RSV not detected COVID-19 not detected EKG done in the ER showed heart rate of , no ST segment elevation or depression seen, no T-wave inversions seen. Chest x-ray done in the ER CT head done showed no acute intracranial process CTA head and neck done showed no significant stenosis, aneurysm or thrombus in the intracranial circulation Patient admitted to internal medicine service REVIEW OF SYSTEMS: CONSTITUTIONAL: No fever, no malaise, no fatigue. HEENT: No recent visual problems or hearing problems. Denied any sore throat. CARDIOVASCULAR: No chest pain, orthopnea, PND, no palpitations, no syncope. PULMONARY: No shortness of breath, no cough, no hemoptysis. GASTROINTESTINAL: No diarrhea, no nausea, no vomiting, no abdominal pain. NEUROLOGICAL: No headaches, no weakness, no numbness. HEMATOLOGICAL: Denies any bleeding or petechiae. GENITOURINARY: Denies any burning micturition, frequency, or urgency. MUSCULOSKELETAL/RHEUMATOLOGICAL: Right hip pain ENDOCRINE: Denies any polyuria or polydipsia. The rest of the 14-point review of systems is negative. PHYSICAL EXAMINATION: GENERAL: The patient is alert and oriented x3, not in any acute distress. Well developed, well nourished. HEENT: Pupils are round and equally reacting to light. EOMI. No scleral icterus. No conjunctival pallor. Normocephalic, atraumatic. No pharyngeal erythema. No thyromegaly. CARDIOVASCULAR: S1 and S2 present. No murmurs, rubs, or gallops. PULMONARY: Chest is clear to auscultation, no wheezing or crackles. ABDOMEN: Soft, nontender, nondistended, normoactive bowel sounds. No palpable organomegaly. MUSCULOSKELETAL: Right hip surgical incision seen EXTREMITIES: No cyanosis, clubbing, or pedal edema. NEUROLOGICAL: Gross neurological examination did not reveal any focal deficits. SKIN: No rashes. Assessment and plan Right hip osteoarthritis s/p right hip total arthroplasty Hypothyroidism Depression Asthma Continue pain management per orthopedics Continue DVT prophylaxis per orthopedics Resume home meds PT and OT consulted Labs and medication were reviewed.. Continue same treatment. Continue with symptomatic treatment. Resume home medication. Monitor labs and vitals. DVT and GI prophylaxis. Further recommendations as per clinical course of the patient Dictation was produced using [employer] dictation software. please excuse any grammatical, word or spelling errors. Labs and medication were reviewed.. Continue same treatment. Continue with symptomatic treatment. Resume home medication. Monitor labs and vitals. DVT and GI prophylaxis. Further recommendations as per clinical course of the patient Dictation was produced using [employer] dictation software. please excuse any grammatical, word or spelling errors. Past Medical History Past Medical History: Asthma, GERD/Reflux, GI Bleed, Hyperlipidemia, Mitral Valve Prolapse (MVP), Osteoarthritis (OA), Skin Disorder, Thyroid Disorder Additional Past Medical History / Comment(s): IBS, hx COLITIS A LONG TIME AGO, STRESS INCONTINENCE OF URINE, occasional migraines, dermatitis, heart palpitations, "low BP, History of Any Multi-Drug Resistant Organisms: MRSA Year Discovered:: 2010 MDRO Source:: knee-2008, rt thumb 2010 Past Surgical History: Adenoidectomy, Appendectomy, Breast Surgery, Section, Cholecystectomy, Orthopedic Surgery, Tonsillectomy Additional Past Surgical History / Comment(s): RT knee ACL surgery, RT GREAT TOE FUSION, bilateral carpel tunnel, nose/sinus surgery, bilateral bunionectomy(right X2), surgery for tubal , left breast lumpectomy, Hiatal hernia surgery, surgery to correct Acid Reflux. Past Anesthesia/Blood Transfusion Reactions: Previous Problems w/ Anesthesia Additional Past Anesthesia/Blood Transfusion Reaction / Comm: "Woke up during surgery." Past Psychological History: Anxiety, Depression Smoking Status: Former smoker Past Alcohol Use History: Occasional Additional Past Alcohol Use History / Comment(s): STARTED SMOKING AT AGE 14, SMOKED 1/2 PPD. QUIT CIGARETTES ABOUT 2 YEARS AGO. NOW VAPES NICOTINE Past Drug Use History: None Reported - Past Family History Mother Family Medical History: Cancer Additional Family Medical History / Comment(s): MULTIPLE MYELOMA. Father Family Medical History: Cancer, CVA/TIA Additional Family Medical History / Comment(s): Skin cancer. Medications and Allergies Home Medications Medication Instructions Recorded Confirmed Type Ascorbic Acid [Vitamin C] 1,000 mg PO DAILY 04/03/16 12/23/23 History Levothyroxine Sodium [Synthroid] 75 mcg PO DAILY 04/03/16 12/18/23 History Cholecalciferol [Vitamin D3 (25 25 mcg PO DAILY 04/07/18 12/23/23 History Mcg = 1000 Iu)] DULoxetine HCL [Cymbalta] 60 mg PO DAILY 04/07/18 12/18/23 History Montelukast [Singulair] 10 mg PO DAILY 04/07/18 12/18/23 History Budesonide/Formoterol Fumarate 2 puff INHALATION RT-BID 01/12/23 12/23/23 History [Symbicort 160-4.5 Mcg Inhaler] Ipratropium [place] [Atrovent Hfa] 2 puff INHALATION RT-QID PRN 01/12/23 12/23/23 History Isosorbide Dinitrate [Isordil] 15 mg PO DAILY 01/12/23 12/18/23 History Melatonin 10 mg PO HS 01/12/23 12/23/23 History Nitroglycerin Sl Tabs [Nitrostat] 0.4 mg SL Q5M PRN 01/12/23 12/23/23 History Zinc Gluconate [Zinc] 50 mg PO DAILY 01/12/23 12/23/23 History Naproxen Sodium [Aleve] 220 mg PO DAILY 12/18/23 12/18/23 History Apixaban [Eliquis] 2.5 mg PO BID #60 tab 12/24/23 Rx HYDROcodone/APAP 7.5-325MG [[place] 1 - 2 tab PO Q6HR PRN #32 tab 12/24/23 Rx 7.5-325] Sennosides/Docusate Sodium [Senna 1 each PO DAILY #20 capsule 12/24/23 Rx Plus 8.6-50 mg Softgel] Allergies Allergy/AdvReac Type Severity Reaction Status Date / Time aspirin Allergy Abdominal Verified 12/23/23 08:59 Pain nickel Allergy itching, Verified 12/23/23 08:59 rash Penicillins Allergy Rash/Hives Verified 12/23/23 08:59 Physical Exam Vitals: Vital Signs Temp Pulse Resp BP BP Pulse Ox 12/24/23 08:00 77 102/63 12/24/23 07:21 98.1 F 68 16 93/61 95 12/24/23 00:59 98.4 F 76 14 88/54 92 L 12/23/23 19:02 97.5 F L 84 14 100/63 94 L 12/23/23 14:38 97.6 F 89 18 106/69 93 L 12/23/23 13:41 84 20 117/77 97 12/23/23 13:26 84 16 114/76 98 12/23/23 13:11 86 20 114/71 98 Intake and Output 12/23/23 12/24/23 12/24/23 22:59 06:59 14:59 Other: # Voids 1 4 Results CBC & Chem 7: 12/24/23 04:46 Labs: Abnormal Lab Results - Last 24 Hours (Table) 12/24/23 Range/Units 04:46 WBC 13.58 H (4.50-10.00) X 10*3/uL RBC 3.63 L (4.10-5.20) X 10*6/uL Hgb 11.3 L (12.0-15.0) g/dL Hct 35.2 L (37.2-46.3) % Immature Gran # 0.10 H (0.00-0.04) X 10*3/uL Neutrophils # 10.18 H (1.80-7.70) X 10*3/uL Monocytes # 1.99 H (0.20-1.00) X 10*3/uL Eosinophils # 0.01 L (0.04-0.35) X 10*3/uL
--- NOTE | 2023-12-24 13:17 | P.CONS ---
History of Present Illness - Reason for Consult Consult date: 12/24/23 Medical management - History of Present Illness patient is a 63-year-old lady with past medical history significant for hyp othyroidism, depression, asthma who presented to the hospital for elective right hip total arthroplasty. Patient has been having right hip pain for the last few years, was following up outpatient with orthopedic surgery. Patient was having pain on ambulation and was having difficulty in doing her ADLs. Orthopedic ordered conservative measures and therapy but all that failed and decision was made to proceed with right hip total arthroplasty. Postoperatively medicine team were consulted for medical management REVIEW OF SYSTEMS: CONSTITUTIONAL: No fever, no malaise, no fatigue. HEENT: No recent visual problems or hearing problems. Denied any sore throat. CARDIOVASCULAR: No chest pain, orthopnea, PND, no palpitations, no syncope. PULMONARY: No shortness of breath, no cough, no hemoptysis. GASTROINTESTINAL: No diarrhea, no nausea, no vomiting, no abdominal pain. NEUROLOGICAL: No headaches, no weakness, no numbness. HEMATOLOGICAL: Denies any bleeding or petechiae. GENITOURINARY: Denies any burning micturition, frequency, or urgency. MUSCULOSKELETAL/RHEUMATOLOGICAL: Right hip pain ENDOCRINE: Denies any polyuria or polydipsia. The rest of the 14-point review of systems is negative. PHYSICAL EXAMINATION: GENERAL: The patient is alert and oriented x3, not in any acute distress. Well developed, well nourished. HEENT: Pupils are round and equally reacting to light. EOMI. No scleral icterus. No conjunctival pallor. Normocephalic, atraumatic. No pharyngeal erythema. No thyromegaly. CARDIOVASCULAR: S1 and S2 present. No murmurs, rubs, or gallops. PULMONARY: Chest is clear to auscultation, no wheezing or crackles. ABDOMEN: Soft, nontender, nondistended, normoactive bowel sounds. No palpable organomegaly. MUSCULOSKELETAL: Right hip surgical incision seen EXTREMITIES: No cyanosis, clubbing, or pedal edema. NEUROLOGICAL: Gross neurological examination did not reveal any focal deficits. SKIN: No rashes. Assessment and plan Right hip osteoarthritis s/p right hip total arthroplasty Hypothyroidism Depression Asthma Continue pain management per orthopedics Continue DVT prophylaxis per orthopedics Resume home meds PT and OT consulted Labs and medication were reviewed.. Continue same treatment. Continue with symptomatic treatment. Resume home medication. Monitor labs and vitals. DVT and GI prophylaxis. Further recommendations as per clinical course of the patient Dictation was produced using [employer] dictation software. please excuse any gramma tical, word or spelling errors. Past Medical History Past Medical History: Asthma, GERD/Reflux, GI Bleed, Hyperlipidemia, Mitral Valve Prolapse (MVP), Osteoarthritis (OA), Skin Disorder, Thyroid Disorder Additional Past Medical History / Comment(s): IBS, hx COLITIS A LONG TIME AGO, STRESS INCONTINENCE OF URINE, occasional migraines, dermatitis, heart palpitations, "low BP, History of Any Multi-Drug Resistant Organisms: MRSA Year Discovered:: 2010 MDRO Source:: knee-2008, rt thumb 2010 Past Surgical History: Adenoidectomy, Appendectomy, Breast Surgery, Section, Cholecystectomy, Orthopedic Surgery, Tonsillectomy Additional Past Surgical History / Comment(s): RT knee ACL surgery, RT GREAT TOE FUSION, bilateral carpel tunnel, nose/sinus surgery, bilateral bunionectomy(right X2), surgery for tubal , left breast lumpectomy, Hiatal hernia surgery, surgery to correct Acid Reflux. Past Anesthesia/Blood Transfusion Reactions: Previous Problems w/ Anesthesia Additional Past Anesthesia/Blood Transfusion Reaction / Comm: "Woke up during surgery." Past Psychological History: Anxiety, Depression Smoking Status: Former smoker Past Alcohol Use History: Occasional Additional Past Alcohol Use History / Comment(s): STARTED SMOKING AT AGE 14, SMOKED 1/2 PPD. QUIT CIGARETTES ABOUT 2 YEARS AGO. NOW VAPES NICOTINE Past Drug Use History: None Reported - Past Family History Mother Family Medical History: Cancer Additional Family Medical History / Comment(s): MULTIPLE MYELOMA. Father Family Medical History: Cancer, CVA/TIA Additional Family Medical History / Comment(s): Skin cancer. Medications and Allergies Home Medications Medication Instructions Recorded Confirmed Type Ascorbic Acid [Vitamin C] 1,000 mg PO DAILY 04/03/16 12/23/23 History Levothyroxine Sodium [Synthroid] 75 mcg PO DAILY 04/03/16 12/18/23 History Cholecalciferol [Vitamin D3 (25 25 mcg PO DAILY 04/07/18 12/23/23 History Mcg = 1000 Iu)] DULoxetine HCL [Cymbalta] 60 mg PO DAILY 04/07/18 12/18/23 History Montelukast [Singulair] 10 mg PO DAILY 04/07/18 12/18/23 History Budesonide/Formoterol Fumarate 2 puff INHALATION RT-BID 01/12/23 12/23/23 History [Symbicort 160-4.5 Mcg Inhaler] Ipratropium [place] [Atrovent Hfa] 2 puff INHALATION RT-QID PRN 01/12/23 12/23/23 History Isosorbide Dinitrate [Isordil] 15 mg PO DAILY 01/12/23 12/18/23 History Melatonin 10 mg PO HS 01/12/23 12/23/23 History Nitroglycerin Sl Tabs [Nitrostat] 0.4 mg SL Q5M PRN 01/12/23 12/23/23 History Zinc Gluconate [Zinc] 50 mg PO DAILY 01/12/23 12/23/23 History Naproxen Sodium [Aleve] 220 mg PO DAILY 12/18/23 12/18/23 History Apixaban [Eliquis] 2.5 mg PO BID #60 tab 12/24/23 Rx HYDROcodone/APAP 7.5-325MG [[place] 1 - 2 tab PO Q6HR PRN #32 tab 12/24/23 Rx 7.5-325] Sennosides/Docusate Sodium [[place] 1 each PO DAILY #20 capsule 12/24/23 Rx Plus 8.6-50 mg Softgel] Allergies Allergy/AdvReac Type Severity Reaction Status Date / Time aspirin Allergy Abdominal Verified 12/23/23 08:59 Pain nickel Allergy itching, Verified 12/23/23 08:59 rash Penicillins Allergy Rash/Hives Verified 12/23/23 08:59 Physical Exam Vitals: Vital Signs Temp Pulse Resp BP BP Pulse Ox 12/24/23 08:00 77 102/63 12/24/23 07:21 98.1 F 68 16 93/61 95 12/24/23 00:59 98.4 F 76 14 88/54 92 L 12/23/23 19:02 97.5 F L 84 14 100/63 94 L 12/23/23 14:38 97.6 F 89 18 106/69 93 L 12/23/23 13:41 84 20 117/77 97 12/23/23 13:26 84 16 114/76 98 Intake and Output 12/23/23 12/24/23 12/24/23 22:59 06:59 14:59 Other: # Voids 1 4 Results CBC & Chem 7: 12/24/23 04:46 Labs: Abnormal Lab Results - Last 24 Hours (Table) 12/24/23 Range/Units 04:46 WBC 13.58 H (4.50-10.00) X 10*3/uL RBC 3.63 L (4.10-5.20) X 10*6/uL Hgb 11.3 L (12.0-15.0) g/dL Hct 35.2 L (37.2-46.3) % Immature Gran # 0.10 H (0.00-0.04) X 10*3/uL Neutrophils # 10.18 H (1.80-7.70) X 10*3/uL Monocytes # 1.99 H (0.20-1.00) X 10*3/uL Eosinophils # 0.01 L (0.04-0.35) X 10*3/uL
--- NOTE | 2023-12-24 13:53 | P.PN ---
Subjective Progress Note Date: 12/24/23 Principal diagnosis: Right hip osteoarthritis Patient was seen at bedside this morning lying; position with dressing present over right hip. Patient says she just finished working with physical therapy and was able to walk out of the hallway and up and down stairs without issue. Patient says the pain is well-controlled. Patient says she has urinated several times since yesterday without issue. Patient says she has not had a bowel movement yet. Patient says her family will be able to help her out at home. Patient says she does need a walker for home. patient denies any other issues at this time. Objective - Vital Signs Vital signs: Vital Signs Temp 98.1 F 12/24/23 07:21 Pulse 77 12/24/23 08:00 Resp 16 12/24/23 07:21 BP 102/63 12/24/23 08:00 Pulse Ox 95 12/24/23 07:21 FiO2 Intake & Output 12/23/23 12/24/23 12/24/23 18:59 06:59 18:59 Intake Total 1250 Output Total 150 Balance 1100 Weight 68.8 kg Intake: IV 1250 Output: Estimated Blood Loss 150 Other: # Voids 1 4 - Exam Right hip: Incision is clean, dry, and intact. The exofin fusion tape is in good condition. There is minimal soft tissue swelling and ecchymosis surrounding the medial and lateral aspects of the incision. Calf is soft, no tenderness with palpation. Plantar flexion, dorsiflexion, EHL, FHL are intact. Sensory exam to light touch throughout the extremity is intact, dorsal pedis pulses 2+. - Labs CBC & Chem 7: 12/24/23 04:46 Labs: Abnormal Lab Results - Last 24 Hours (Table) 12/24/23 Range/Units 04:46 WBC 13.58 H (4.50-10.00) X 10*3/uL RBC 3.63 L (4.10-5.20) X 10*6/uL Hgb 11.3 L (12.0-15.0) g/dL Hct 35.2 L (37.2-46.3) % Immature Gran # 0.10 H (0.00-0.04) X 10*3/uL Neutrophils # 10.18 H (1.80-7.70) X 10*3/uL Monocytes # 1.99 H (0.20-1.00) X 10*3/uL Eosinophils # 0.01 L (0.04-0.35) X 10*3/uL Assessment and Plan Assessment: 1. Right hip osteoarthritis -Postop day 1 status post direct anterior right total hip arthroplasty Plan: 1. Right hip osteoarthritis -direct anterior right total hip arthroplasty form yesterday, 12/23/2023. Patient stable at bedside this morning. Prescription for walker was signed. Discharge home today with health services. 2. Appreciate medical management 3. Pain management -[place] 4. GI prophylaxis -senna 5. DVT prophylaxis -Xarelto in hospital. Going home with Eliquis 2.5 mg twice daily x 2 weeks 6. PT/OT -weightbearing as tolerated with walker 7. Encourage incentive spirometer use 8. Discharge planning -home today with health services Time with Patient: Less than 30
== END 2023-12-24 14:15 | disposition home health service (06) ==
LOC: OR 08:21 → 4SSUR 12:00 → OR 12-24 14:15
PROVIDERS: ATTEND Orthopaedic Surgery
DX: M16.11 Unilateral primary osteoarthritis, right hip (principal); E03.9 Hypothyroidism, unspecified; E78.5 Hyperlipidemia, unspecified; F32.A Depression, unspecified; F41.9 Anxiety disorder, unspecified; G89.18 Other acute postprocedural pain; I34.1 Nonrheumatic mitral (valve) prolapse; J45.909 Unspecified asthma, uncomplicated; K58.9 Irritable bowel syndrome, unspecified; Z79.01 Long term (current) use of anticoagulants; Z79.51 Long term (current) use of inhaled steroids; Z79.890 Hormone replacement therapy; Z79.899 Other long term (current) drug therapy; Z87.891 Personal history of nicotine dependence; Z88.0 Allergy status to penicillin; Z90.49 Acquired absence of other specified parts of digestive tract
CPT/HCPCS: 97161; 97166; 64447; 85025; 73501; 27130; C1776; J2250; J1100; J0690 ×2; J2405; J1170 ×2

== ENCOUNTER → 2024-02-13 | Outpatient (CLI) | payer MEDICARE ==
[2024-02-13 20:24] LABS: Basophils # (A) 0.05 X 10*3/uL (0.00-0.10); Basophils % (A) 0.6 %; Eosinophils # (A) 0.07 X 10*3/uL (0.04-0.35); Eosinophils % (A) 0.9 %; HCT 45.1 % (37.2-46.3); HGB 14.2 g/dL (12.0-15.0); Lymphocytes # (A) 1.97 X 10*3/uL (0.90-5.00); Lymphocytes % (A) 24.3 %; MCH 30.2 pg (27.0-32.0); MCHC 31.5 g/dL (32.0-37.0); Mean Platelet Volume 10.3 FL (9.5-12.2); Monocytes # (A) 0.78 X 10*3/uL (0.20-1.00); Monocytes % (A) 9.6 %; NRBC Per 100 WBC 0 X 10*3/uL (0.00-0.01); Neutrophils # (A) 5.23 X 10*3/uL (1.80-7.70); Neutrophils % (A) 64.4 %; Platelet Count 405 X 10*3/uL (140-440); RDW 14.7 % (11.5-14.5); WBC 8.12 X 10*3/uL (4.50-10.00)
== END | disposition home or self-care (01) ==
LOC: LABPAT 13:47
PROVIDERS: ATTEND Orthopaedic Surgery
DX: Z01.812 Encounter for preprocedural laboratory examination (principal); M16.12 Unilateral primary osteoarthritis, left hip
CPT/HCPCS: 36415; 85025; 86850; 86900; 86901

== ENCOUNTER 2024-02-17 08:11 | Day surgery (SDC) | payer MEDICARE ==
[2024-02-12 11:39] VITALS: BMI 27.1
--- NOTE | 2024-02-16 08:05 | P.HPOR ---
History of Present Illness H&P Date: 02/16/24 Chief Complaint: Left hip pain The patient is a 63-year-old female who presents with progressive left hip pain for the past several years worsening over the past 6 months. She is having pain with weightbearing activities. She notes stiffness. She tried therapy in the past along with medications with actual worsening her symptoms. Review of Systems As per HPI Past Medical History Past Medical History: Asthma, GERD/Reflux, Hyperlipidemia, Mitral Valve Prolapse (MVP), Osteoarthritis (OA), Pneumonia, Skin Disorder, Thyroid Disorder Additional Past Medical History / Comment(s): Hx HIATAL HERNIA and Acid reflux, resolved with surgery. IBS, hx COLITIS A LONG TIME AGO, STRESS INCONTINENCE OF URINE, occasional migraines, dermatitis, heart palpitations, "low BP, cholestrol a little high." History of Any Multi-Drug Resistant Organisms: MRSA Date of last positivie culture/infection: 2010 MDRO Source:: knee-2008, rt thumb 2010 Past Surgical History: Adenoidectomy, Breast Surgery, Section, Cholecystectomy, Joint Replacement, Orthopedic Surgery, Tonsillectomy Additional Past Surgical History / Comment(s): RT knee ACL surgery, RT GREAT TOE FUSION, bilateral carpel tunnel, nose/sinus surgery, bilateral bunionectomy(right X2), surgery for tubal , left breast lumpectomy, Hiatal hernia surgery, surgery to correct Acid Reflux., RT RIVERA Past Anesthesia/Blood Transfusion Reactions: Previous Problems w/ Anesthesia Additional Past Anesthesia/Blood Transfusion Reaction / Comment(s): "Woke up during surgery." Smoking Status: Former smoker, Vaper - Past Family History Mother Family Medical History: Cancer Additional Family Medical History / Comment(s): MULTIPLE MYELOMA. Father Family Medical History: Cancer, CVA/TIA Additional Family Medical History / Comment(s): Skin cancer. Medications and Allergies Home Medications Medication Instructions Recorded Confirmed Type Ascorbic Acid [Vitamin C] 1,000 mg PO DAILY 04/03/16 02/12/24 History Levothyroxine Sodium [Synthroid] 75 mcg PO DAILY 04/03/16 02/12/24 History Cholecalciferol [Vitamin D3 (25 25 mcg PO DAILY 04/07/18 02/12/24 History Mcg = 1000 Iu)] DULoxetine HCL [Cymbalta] 60 mg PO DAILY 04/07/18 02/12/24 History Montelukast [Singulair] 10 mg PO DAILY 04/07/18 02/12/24 History Budesonide/Formoterol Fumarate 2 puff INHALATION RT-BID 01/12/23 02/12/24 History [Symbicort 160-4.5 Mcg Inhaler] Ipratropium [place] [Atrovent Hfa] 2 puff INHALATION RT-QID PRN 01/12/23 02/12/24 History Isosorbide Dinitrate [Isordil] 15 mg PO DAILY 01/12/23 02/12/24 History Melatonin 10 mg PO HS 01/12/23 02/12/24 History Nitroglycerin Sl Tabs [Nitrostat] 0.4 mg SL Q5M PRN 01/12/23 02/12/24 History Zinc Gluconate [Zinc] 50 mg PO DAILY 01/12/23 02/12/24 History Allergies Allergy/AdvReac Type Severity Reaction Status Date / Time aspirin Allergy Abdominal Verified 02/12/24 11:17 Pain nickel Allergy itching, Verified 02/12/24 11:17 rash Penicillins Allergy Rash/Hives Verified 02/12/24 11:17 Physical Examination - Hip left Gait: antalgic Tenderness with palpation: anterior Pain with motion: internal rotation and hip flexion ROM: flexion: 80 degrees ROM: internal rotation: 0 degrees (With pain) ROM: external rotation: 50 degrees Crepitus with motion: Yes Strength: extension: 5/5 Strength: flexion: 5/5 Strength: abduction: 5/5 Tests: impingement tests: positive Results The patient is a well-developed well-nourished female approximately 5 foot 3, 150 pounds of mesomorphic habitus. HEENT exam is nonfocal, neck is supple. She has painless passive motion of the right hip. She has painful passive motion of the left hip. Straight leg raise is negative on the left. Her distal neurovascular appears intact in left lower extremity. - Diagnostic results Hip x-ray: image reviewed (X-rays of the left hip obtained in the office show severe osteoarthrosis with [id number] changes and subchondral sclerosis.) Assessment and Plan Assessment: Left hip severe osteoarthrosis Plan: I talked to the patient at length regarding her condition along with treatment options. At this point she is quite symptomatic having pain and stiffness related to her left hip osteoarthrosis despite conservative measures. After a thorough discussion she opts to proceed with surgery. We'll proceed with left total hip arthroplasty utilizing an anterior approach. Risks and benefits were discussed at length in layman's terms. We will institute DVT prophylaxis postoperatively.
[~2024-02-17 08:11] MED LIST changes: -HYDROmorphone 0.5 MG/0.5 ML SYRINGE IVP PRN
[2024-02-17] MEDS: LACTATED RINGERS 1,000 ML IV SCH (08:54)
[2024-02-17] MEDS: ACETAMINOPHEN TAB 500 MG TAB PO PRN (08:54)
[2024-02-17] MEDS: MELOXICAM 7.5 MG TAB PO PRN (08:54)
[2024-02-17] MEDS: ONDANSETRON 4 MG/2 ML VIAL IVP ONE (08:54)
[2024-02-17] MEDS: IV FLUID CONTINUATION 1,000 ML IV ONE (08:58)
[2024-02-17] MEDS: MIDAZOLAM 2 MG/2 ML VIAL IVP ONE (09:18)
[2024-02-17] MEDS: fentaNYL (PF) 50 MCG/ML 2 ML AMP IVP ONE (09:20)
[2024-02-17 09:24] LABS: Partial Thromboplastin Time 23.8 sec (22.0-30.0); Prothrombin Time 10.8 sec (10.0-12.5)
[2024-02-17 09:29] LABS: ALT 15 U/L (4-34); AST 24 U/L (14-36); African American GFR (CKD) >90 (>60 ml/min/1.73 sqM); Albumin 4.3 g/dL (3.5-5.0); Alkaline Phosphatase 144 U/L (38-126); Anion Gap 6 mmol/L; Blood Urea Nitrogen 11 mg/dL (7-17); Calcium 9.7 mg/dL (8.4-10.2); Carbon Dioxide 26 mmol/L (22-30); Chloride 109 mmol/L (98-107); Glucose 103 mg/dL (74-99); Non-African American GFR(CKD) >90 (>60 ml/min/1.73 sqM); Sodium 141 mmol/L (137-145); Total Bilirubin 0.6 mg/dL (0.2-1.3); Total Protein 7.2 g/dL (6.3-8.2)
--- NOTE | 2024-02-17 09:38 | P.ANPRN ---
Procedure Note - Anesthesia - Nerve Block Performed Left [place] Single Time Out Performed: Yes Date of Procedure: 02/17/24 Procedure Start Time: : Procedure Stop Time: Location of Patient: PreOp Indication: Acute Post-Operative Pain, Requested by Surgeon Sedation Type: Sedate with meaningful contact maintained Preparation: Sterile Prep Position: Supine Needle Types: Pajunk Needle Gauge: 21 Ultrasound used to visualize needle placement: Yes Ultrasound used to observe medication spread: Yes Injectate: 0.5% Ropivacaine (see comment for volume) (25 ml + 4 mg Dexamethas one) Blood Aspirated: No Pain Paresthesia on Injection Noted: No Resistance on Injection: Normal Image Stored and Saved: Yes Events: Uneventful and Well Tolerated
[2024-02-17] MEDS ORDERED: fentaNYL (PF) 50 MCG/ML 2 ML AMP ONE (10:08)
[2024-02-17] MEDS ORDERED: PROPOFOL 10 MG/ML 20 ML VIAL IV ONE (10:08)
[2024-02-17] MEDS ORDERED: TRANEXAMIC 1,000 MG/100ML-NACL PREMIX BAG ONE (10:08)
[2024-02-17] MEDS ORDERED: MIDAZOLAM 2 MG/2 ML VIAL ONE (10:08)
[2024-02-17] MEDS ORDERED: SODIUM CHLORIDE 0.9% (PF) 10 ML VIAL ONE (10:08)
[2024-02-17] MEDS ORDERED: ROPIVACAINE 5 MG/ML 30 ML VIAL ONE (10:08)
[2024-02-17] MEDS: ceFAZolin 1,000 MG in SODIUM CHLORIDE 0.9% 1,000 ML IRRIGATION ONE (10:37)
[2024-02-17] MEDS ORDERED: MAGNESIUM HYDROXIDE 2,400 MG/30 ML CUP PO PRN (11:46)
[2024-02-17] MEDS ORDERED: HYDROcodone/APAP 5-325MG 1 EACH TAB PO PRN (11:46)
[2024-02-17] MEDS ORDERED: HYDROmorphone 0.5 MG/0.5 ML SYRINGE IVP PRN (11:46)
[2024-02-17] MEDS ORDERED: NALOXONE 0.4 MG/ML 1 ML VIAL IV PRN (11:46)
--- NOTE | 2024-02-17 11:47 | FL ---
Fluoroscopy History: OA LEFT HIP left anterior hip dap 1.1500 fl 18.3
--- NOTE | 2024-02-17 12:03 | P.OP ---
Date of Procedure: 02/17/24 Preoperative Diagnosis: Left hip severe osteoarthrosis Postoperative Diagnosis: Same Procedure(s) Performed: Left total hip arthroplastypress-fitanterior approach Implants: Depuy Corail size 12/high offset/125 degree collared press-fit femoral stem, 36+1.5 ceramic femoral head, 58 mm [place] acetabular shell with neutral polyethylene liner. Anesthesia: spinal Surgeon: Thiago Noriega Supervisor [employer]: Dileep Miller Estimated Blood Loss (ml): 300 Pathology: none sent Condition: stable Disposition: PACU Indications for Procedure: The patient is a 63-year-old female who presents with progressive left hip pain secondary to osteoarthrosis despite conservative measures. A discussion of the risks and benefits of operative intervention versus continued conservative measures was made with the patient. She opted to proceed with surgery. Operative risks include infection, neurovascular injury, development of blood clots, instability, leg length discrepancy, fracture, possible component loosening/failure and need for subsequent procedures was discussed. Informed consent was obtained. Operative Findings: As below Description of Procedure: The patient was brought to the operating room, and after induction of spinal anesthesia was placed supine on the Monalisa table. Positioning was checked with fluoroscopy. The left hip was then prepped and draped in a normal fashion. A 12 cm incision was then made starting 2 fingerbreadths distal and 3 finger breaths posterior to the ASIS in line with the proximal femur. The skin was incised sharply. Subcutaneous tissues were divided sharply. Electrocautery was used for hemostasis. The fascia was split in line with skin incision. The interval between the sartorius and tensor fascia elsi was then bluntly developed. The posterior fascia was opened with electrocautery. The lateral circumflex vessels were identified and cauterized prior to sectioning. A retractor was placed along the superior femoral neck as well as the anterior acetabular rim. A wide capsulotomy was performed. The neck cut was then made at a 45 angle to the shaft approximately 1 1/2 cm above the level of the lesser trochanter. The head was extracted. Attention was then paid towards preparing the acetabular. Anterior and posterior retractors were placed. The remaining capsular labral tissue sharply debrided clearly defining the acetabula r margins. I began reaming with a 53 mm reamer taking care to initially medialize then reaming at 45 of abduction and 20 of anteversion. Sequential reaming is performed up to 57 mm. A trial 58 mm acetabular shell was inserted in the same orientation and was fully seated. There was good rim fit and stability. Positioning was checked with fluoroscopy. The final 58 mm acetabular shell was inserted again at 45 of abduction and 20 of anteversion. This was fully seated. There was good rim fit and stability. Again fluoroscopy was used to check the adequacy of placement. A neutral po lyethylene liner was gently impacted. Care was taken to avoid any soft tissue interposition. Pulsatile lavage was utilized. Attention was then paid towards preparing the proximal femur. The central region was cleared of soft tissue. A canal finder was used to find the femoral canal. Sequential broaching was performed up to size 12 taking care to lateralize proximally. A calcar mill was used to fashion the medial calcar. There was good rotational stability. A 125 degree high offset neck along with a 36 mm +1.5 head was placed. The hip was gently reduced. Fluoroscopy was used to check the adequacy of positioning along with leg lengths. I felt both were good. The hip was gently dislocated. The trial components were removed. The final size 12 collared 125 degree high offset press-fit femoral stem was inserted parallel to the posterior cortex. This was fully seated and there was good rotational stability. A 36 mm +1.5 ceramic head was placed. This was gently impacted. The hip was then gently reduced. Final fluoroscopic view showed adequate placement implant along with anglican of leg length. Stability was checked with 80 of external rotation and 60 of extension of the right hip. The wound was irrigated with sterile lavage. The fascia was closed with running 0 Vicryl suture. There was minimal drainage therefore a deep drain was not placed. The second dose of IV TXA was given. The subcutaneous tissues were reapproximated interrupted 2-0 Vicryl sutures. The skin was reapproximated with 3-0 subcuticular strata fix suture. Skin tape and adhesive was applied. A sterile dressing was applied. The patient was then awoken from sedation and transferred to recovery room in good condition. Blood loss was estimated at 200 mL. No complications were incurred. Sponge and needle counts were correct at the end of the case. Dileep STEWARD assisted during the major components is case to include exposure, bone resection, implantation, and closure.
[2024-02-17] MEDS: HYDROmorphone 0.5 MG/0.5 ML SYRINGE IVP PRN ×2 (12:09→15:20)
--- NOTE | 2024-02-17 12:26 | XR ---
EXAMINATION TYPE: XR Hip Limited LT DATE OF EXAM: 02/17/2024 CLINICAL HISTORY: Postoperative evaluation TECHNIQUE: Single portable view of the left hip was submitted. FINDINGS: Noted are changes of total hip arthroplasty with femoral and acetabular components appearin g well seated. Alignment is anatomic. Postsurgical soft tissue changes are evident. IMPRESSION: Satisfactory postoperative alignment
[2024-02-17] MEDS: HYDROcodone/APAP 7.5-325MG 1 EACH TAB PO PRN (13:58)
[2024-02-17] MEDS ORDERED: IPRATROPIUM 0.5 MG/2.5 ML NEBU INHALATION PRN (16:21)
[2024-02-17] MEDS ORDERED: NITROGLYCERIN SL TABS 0.4 MG TAB SUBLINGUAL PRN (16:21)
[2024-02-17] MEDS: SYMBICORT 160-4.5 MCG INHALER INHALATION SCH (20:19)
[2024-02-17] MEDS: SENNOSIDES-DOCUSATE SODIUM 1 EACH TAB PO SCH (21:23)
[2024-02-17] MEDS: MELATONIN 5 MG TABLET PO SCH (21:23)
[2024-02-18 06:50] VITALS: BP 118/66; PULSE 67; TEMP 98.9
[2024-02-18] MEDS: ZINC SULFATE 220 MG CAP PO SCH (08:15)
[2024-02-18] MEDS: ASCORBIC ACID 500 MG TAB PO SCH (08:15)
[2024-02-18] MEDS: CHOLECALCIFEROL 25 MCG (1000 IU) TABLET PO SCH (08:15)
[2024-02-18] MEDS: LEVOTHYROXINE 75 MCG TAB PO SCH (08:15)
[2024-02-18] MEDS: DULoxetine HCL 60 MG CAPSULE.DR PO SCH (08:16)
[2024-02-18] MEDS: MONTELUKAST 10 MG TAB PO SCH (08:16)
[2024-02-18] MEDS: RIVAROXABAN 10 MG TAB PO SCH (08:16)
[2024-02-18 10:07] VITALS: RESP 15
[2024-02-18 10:35] LABS: Basophils # (A) 0.02 X 10*3/uL (0.00-0.10); Basophils % (A) 0.2 %; Eosinophils # (A) 0.01 X 10*3/uL (0.04-0.35); Eosinophils % (A) 0.1 %; HCT 35.7 % (37.2-46.3); HGB 11.3 g/dL (12.0-15.0); MCH 30.7 pg (27.0-32.0); MCHC 31.7 g/dL (32.0-37.0); Mean Platelet Volume 11.3 FL (9.5-12.2); Monocytes # (A) 1.52 X 10*3/uL (0.20-1.00); Monocytes % (A) 15.2 %; NRBC Per 100 WBC 0 X 10*3/uL (0.00-0.01); Neutrophils # (A) 6.83 X 10*3/uL (1.80-7.70); Neutrophils % (A) 68.2 %; Platelet Count 306 X 10*3/uL (140-440); RBC 3.68 X 10*6/uL (4.10-5.20); RDW 14.4 % (11.5-14.5); WBC 10.01 X 10*3/uL (4.50-10.00)
[2024-02-18 10:55] LABS: BUN/Creat Ratio 15.67 Ratio (12.00-20.00); Blood Urea Nitrogen 9.4 mg/dL (9.0-27.0); Calcium 9.2 mg/dL (8.7-10.3); Carbon Dioxide 24.9 mmol/L (21.6-31.8); Chloride 101 mmol/L (96-109); Glucose 109 mg/dL (70-110); Potassium 4.3 mmol/L (3.5-5.5); Sodium 140 mmol/L (135-145)
--- NOTE | 2024-02-18 11:16 | P.DS ---
Providers Date of admission: 02/17/2024 Expected date of discharge: 02/18/24 Attending physician: Thiago Noriega Consults: 02/17/24 11:46 Consult Physician Routine Consulting Provider: Nestor Alba Consult Reason/Comments: Medical management status post direct anterior left total hip arthroplasty Do you want consulting provider notified?: Yes Primary care physician: Orville Gutierrez [place] Hospital Course: Date of admission: 02/17/2024 Date of discharge: 02/18/2024 Admission diagnosis: Left hip osteoarthritis Discharge diagnosis: Same Attending physician: Dr. Noriega Surgical procedures: Direct anterior left total hip arthroplasty Brief history: Patient is a 63-year-old female with a history of progressive primary left hip osteoarthritis. At this point patient has failed conservative treatment measures and has opted to proceed with a elective direct anterior left total hip arthroplasty. Hospital course: Details of patient's surgery can be found in operative report. Patient tolerated the procedure well and was subsequently transported to orthopedic floor. Patient's orthopeidc and medical care was provided daily. Patient had daily laboratory tests performed for evaluation of overall blood counts. Patient had daily physical therapy to include strengthening range of motion as well as education with walker ambulation. Patient was treated with Xarelto for their postoperative DVT prophylaxis during their inpatient stay. Patient was noted to have a relatively uneventful postoperative course. Patient reported satisfactory pain control with oral pain medications by postoperative day 1. Patient showed satisfactory progress with physical therapy. Patient moved steadily through the program and had no difficulty meeting the goals by postoperative day 1. Given patient's otherwise satisfactory course and having met physical therapy goals, plan is to discharge patient home with health services on postoperative day 1. Discharge condition/disposition: Patient will be discharged home with health services in stable condition. Discharge medications: Instructions are given on resumption of patient's normal daily medications per primary care recommendation, in addition patient will be prescribed [place]; senna; resume eliquis at home. Discharge instructions: 1. Wound care and infection precautions, keep incision dry and covered while showering, no lotions, creams, moisturizers. No soaking, tubs, pools, hottubs. Do not scrub over the incision. 2. Weight-bear as tolerated with walker / cane until follow-up. 3. Ice and elevate when necessary. Do not exceed 20 minutes per hour with ice pack. 4. Utilize compression sleeve until seen at first follow up appointment. 5. Visiting nursing care. 6. Home physical therapy. 7. Pain meds and anticoagulants per prescription. 8. Pain medication has potential to cause constipation. Increase oral fluid and fiber intake. Contact primary care provider if you have not had a bowel movement within 48 hours after discharge 9. No anti-inflammatory medication until discussed at first post operative visit, this including Motrin, Aleve, Mobic, Diclofenac. 10. Follow up in office at 2 weeks postop with Jude Muniz PA-C / Dileep Miller PA-C 11. Follow up with your primary care doctor 7-10 days after discharge. 12. Contact [facility] with any questions, . Assessment: Left hip osteoarthritis Procedures: Direct anterior left total hip arthroplasty Patient Condition at Discharge: Good Plan - Discharge Summary Discharge Rx Participant: Yes New Discharge Prescriptions: New HYDROcodone/APAP 7.5-325MG [[place] 7.5-325] 1 - 2 tab PO Q6HR PRN #32 tab PRN Reason: Pain No Action Levothyroxine Sodium [Synthroid] 75 mcg PO DAILY Ascorbic Acid [Vitamin C] 1,000 mg PO DAILY Cholecalciferol [Vitamin D3 (25 Mcg = 1000 Iu)] 25 mcg PO DAILY Montelukast [Singulair] 10 mg PO DAILY DULoxetine HCL [Cymbalta] 60 mg PO DAILY Zinc Gluconate [Zinc] 50 mg PO DAILY Nitroglycerin Sl Tabs [Nitrostat] 0.4 mg SL Q5M PRN PRN Reason: Chest Pain Ipratropium [place] [Atrovent Hfa] 2 puff INHALATION RT-QID PRN PRN Reason: Shortness Of Breath Melatonin 10 mg PO HS Budesonide/Formoterol Fumarate [Symbicort 160-4.5 Mcg Inhaler] 2 puff INHALATION RT-BID Isosorbide Dinitrate [Isordil] 15 mg PO DAILY Discharge Medication List Ascorbic Acid [Vitamin C] 1,000 mg PO DAILY 04/03/16 [History] Levothyroxine Sodium [Synthroid] 75 mcg PO DAILY 04/03/16 [History] Cholecalciferol [Vitamin D3 (25 Mcg = 1000 Iu)] 25 mcg PO DAILY 04/07/18 [History] DULoxetine HCL [Cymbalta] 60 mg PO DAILY 04/07/18 [History] Montelukast [Singulair] 10 mg PO DAILY 04/07/18 [History] Budesonide/Formoterol Fumarate [Symbicort 160-4.5 Mcg Inhaler] 2 puff INHALATION RT-BID 01/12/23 [History] Ipratropium [place] [Atrovent Hfa] 2 puff INHALATION RT-QID PRN 01/12/23 [History] Isosorbide Dinitrate [Isordil] 15 mg PO DAILY 01/12/23 [History] Melatonin 10 mg PO HS 01/12/23 [History] Nitroglycerin Sl Tabs [Nitrostat] 0.4 mg SL Q5M PRN 01/12/23 [History] Zinc Gluconate [Zinc] 50 mg PO DAILY 01/12/23 [History] HYDROcodone/APAP 7.5-325MG [[place] 7.5-325] 1 - 2 tab PO Q6HR PRN #32 tab 02/18/24 [Rx] Follow up Appointment(s)/Referral(s): Dileep Miller PAC [[facility] [employer] [facility]] - 03/04/24 9:50 am Patient Instructions/Handouts: Anterior Hip Replacement (DC), Anterior Hip Replacement (GEN) Activity/Diet/Wound Care/Special Instructions: Orthopedic Discharge Instructions: 1. Wound care and infection precautions, keep incision dry and covered while showering, no lotions, creams, moisturizers. No soaking, pools, hot tubs. Do not scrub over incision. 2. Weight-bear as tolerated with walker / cane until follow-up. 3. Ice and elevate when necessary. Do not exceed 20 minutes per hour with ice pack. 4. Utilize compression sleeve until seen at first follow up appointment. 5. Pain meds and anticoagulants per prescription. 6. Pain medication has potential to cause constipation. Increase oral fluid and fiber intake. Contact primary care provider if you have not had a bowel movement within 48 hours after discharge. 7. No anti-inflammatory medication until discussed at first post operative visit, this including Motrin, Aleve, Mobic, Diclofenac. 8. Follow up in office at 2 weeks postop with Jude Muniz PA-C / Dileep Miller PA-C 9. Follow up with your primary care doctor 7-10 days after discharge. 10. Contact [facility] with any questions, . Keep incision clean, dry, intact. While showering, cover fusion tape with Saran wrap. Keep fusion tape on until follow-up appointment in office in 2 weeks resume eliquis at home - 2.5 mg BID x 2 weeks. If you do not have enough for two weeks, once finished with eliquis, take aspirin 81 mg BID Discharge Disposition: HOME WITH HOME HEALTH SERVICES
--- NOTE | 2024-02-18 11:34 | P.PN ---
Subjective Progress Note Date: 02/18/24 Principal diagnosis: Left hip osteoarthritis Patient was seen at bedside this morning sitting up in chair dressing present over left hip. Patient says she has been up walking around the room since surgery yesterday without issue. Patient says pain is minimal. Patient says she is looking for going home later today. She says she does have a walker home. She says she only has a couple steps and there are single level home. Patient says she still has a Eliquis left over from a previous surgery. She says she has urinated since surgery yesterday. Patient has not had bowel movement yet, however she says she has been passing gas. Patient denies chest pain, fever, shortness, nausea, vomiting or vision, loss of bowel/bladder control. Objective - Vital Signs Vital signs: Vital Signs Temp 98.9 F 02/18/24 06:49 Pulse 67 02/18/24 06:49 Resp 15 02/18/24 10:02 BP 118/66 02/18/24 06:49 Pulse Ox 99 02/18/24 09:11 FiO2 Intake & Output 02/17/24 02/18/24 02/18/24 18:59 06:59 18:59 Intake Total 701 Output Total 200 Balance 501 Weight 69.4 kg Intake: IV 651 Intake, IV Titration 50 Amount ceFAZolin 2 gm In Sodium 50 Chloride 0.9% 50 ml @ 100 mls/hr IVPB Q8H [facility] Rx#: [id number] Output: Estimated Blood Loss 200 Other: Voiding Method Toilet # Voids 1 6 - Exam left hip: Incision is clean, dry, and intact. The exofin fusion tape is in good condition. There is minimal soft tissue swelling and ecchymosis surrounding the medial and lateral aspects of the incision. Calf is soft, no tenderness with palpation. Plantar flexion, dorsiflexion, EHL, FHL are intact. Sensory exam to light touch throughout the extremity is intact, dorsal pedis pulses 2+. - Labs CBC & Chem 7: 02/18/24 07:13 02/18/24 07:13 Labs: Abnormal Lab Results - Last 24 Hours (Table) 02/18/24 02/18/24 Range/Units 07:13 07:13 WBC 10.01 H (4.50-10.00) X 10*3/uL RBC 3.68 L (4.10-5.20) X 10*6/uL Hgb 11.3 L (12.0-15.0) g/dL Hct 35.7 L (37.2-46.3) % MCHC 31.7 L (32.0-37.0) g/dL Monocytes # 1.52 H (0.20-1.00) X 10*3/uL Eosinophils # 0.01 L (0.04-0.35) X 10*3/uL Anion Gap 14.10 H (4.00-12.00) mmol/L Assessment and Plan Assessment: 1. Left hip osteoarthritis - Postoperative day 1 status post direct anterior left total hip arthroplasty Plan: 1. Left hip osteoarthritis - direct anterior left total hip arthroplasty performed yesterday, 02/17/2024. Patient at bedside with dressing present over left hip. Patient did do well with therapy and walked to the hallway and up-and-down stairs. Patient does have a walker for home. Pain medication as needed. Weightbearing as tolerated with walker. Discharge home today with health services. 2. Appreciate medical management 3. Pain management - norco; flexeril 4. DVT prophylaxis - Xarelto in hospital. eliquis BID x 2 weeks once home. 5. GI ppx - senna 6. PT/OT - WBAT w/walker 7. Encourage incentive spirometer use 8. Discharge planning - home today with health services Time with Patient: Less than 30
--- NOTE | 2024-02-18 13:11 | P.CONS ---
History of Present Illness - Reason for Consult Consult date: 02/18/24 Medical management - History of Present Illness History of present illness; patient 63-year-old lady with past medical history significant for asthma, hyperlipidemia who presented to hospital for elective left hip arthroplasty. Patient has been following up outpatient orthopedic surgery for left hip pain, all conservative measures failed so patient was scheduled for left hip arthroplasty.Patient admitted to orthopedic service. Postoperatively internal medicine team were consulted for medical management REVIEW OF SYSTEMS: CONSTITUTIONAL: No fever, no malaise, no fatigue. HEENT: No recent visual problems or hearing problems. Denied any sore throat. CARDIOVASCULAR: No chest pain, orthopnea, PND, no palpitations, no syncope. PULMONARY: No shortness of breath, no cough, no hemoptysis. GASTROINTESTINAL: No diarrhea, no nausea, no vomiting, no abdominal pain. NEUROLOGICAL: No headaches, no weakness, no numbness. HEMATOLOGICAL: Denies any bleeding or petechiae. GENITOURINARY: Denies any burning micturition, frequency, or urgency. MUSCULOSKELETAL/RHEUMATOLOGICAL: As mentioned above ENDOCRINE: Denies any polyuria or polydipsia. The rest of the 14-point review of systems is negative. PHYSICAL EXAMINATION: GENERAL: The patient is alert and oriented x3, not in any acute distress. Well developed, well nourished. HEENT: Pupils are round and equally reacting to light. EOMI. No scleral icterus. No conjunctival pallor. Normocephalic, atraumatic. No pharyngeal erythema. No thyromegaly. CARDIOVASCULAR: S1 and S2 present. No murmurs, rubs, or gallops. PULMONARY: Chest is clear to auscultation, no wheezing or crackles. ABDOMEN: Soft, nontender, nondistended, normoactive bowel sounds. No palpable organomegaly. MUSCULOSKELETAL: Hip surgical incision seen EXTREMITIES: No cyanosis, clubbing, or pedal edema. NEUROLOGICAL: Gross neurological examination did not reveal any focal deficits. SKIN: No rashes. Assessment and plan Left hip osteoarthritis s/p left hip arthroplasty Hypothyroidism Asthma Continue pain management per orthopedics Continue DVT prophylaxis per orthopedics Resume home meds PT and OT consulted Labs and medication were reviewed.. Continue same treatment. Continue with symptomatic treatment. Resume home medication. Monitor labs and vitals. DVT and GI prophylaxis. Further recommendations as per clinical course of the patient Dictation was produced using [employer] dictation software. please excuse any grammatical, word or spelling errors. Past Medical History Past Medical History: Asthma, GERD/Reflux, Hyperlipidemia, Mitral Valve Prolapse (MVP), Osteoarthritis (OA), Pneumonia, Skin Disorder, Thyroid Disorder Additional Past Medical History / Comment(s): Hx HIATAL HERNIA and Acid reflux, resolved with surgery. IBS, hx COLITIS A LONG TIME AGO, STRESS INCONTINENCE OF URINE, occasional migraines, dermatitis, heart palpitations, "low BP, cholestrol a little high." History of Any Multi-Drug Resistant Organisms: MRSA Year Discovered:: 2010 MDRO Source:: knee-2008, rt thumb 2010 Past Surgical History: Adenoidectomy, Breast Surgery, Section, Cholecystectomy, Joint Replacement, Orthopedic Surgery, Tonsillectomy Additional Past Surgical History / Comment(s): RT knee ACL surgery, RT GREAT TOE FUSION, bilateral carpel tunnel, nose/sinus surgery, bilateral bunionectomy(right X2), surgery for tubal , left breast lumpectomy, Hiatal hernia surgery, surgery to correct Acid Reflux., RT RIVERA Past Anesthesia/Blood Transfusion Reactions: Previous Problems w/ Anesthesia Additional Past Anesthesia/Blood Transfusion Reaction / Comm: "Woke up during surgery." Past Psychological History: Anxiety, Depression Smoking Status: Former smoker, Vaper Past Alcohol Use History: Occasional Additional Past Alcohol Use History / Comment(s): STARTED SMOKING AT AGE 14, SMOKES 1/2 PPD. Past Drug Use History: None Reported - Past Family History Mother Family Medical History: Cancer Additional Family Medical History / Comment(s): MULTIPLE MYELOMA. Father Family Medical History: Cancer, CVA/TIA Additional Family Medical History / Comment(s): Skin cancer. Medications and Allergies Home Medications Medication Instructions Recorded Confirmed Type Ascorbic Acid [Vitamin C] 1,000 mg PO DAILY 04/03/16 02/12/24 History Levothyroxine Sodium [Synthroid] 75 mcg PO DAILY 04/03/16 02/12/24 History Cholecalciferol [Vitamin D3 (25 25 mcg PO DAILY 04/07/18 02/12/24 History Mcg = 1000 Iu)] DULoxetine HCL [Cymbalta] 60 mg PO DAILY 04/07/18 02/12/24 History Montelukast [Singulair] 10 mg PO DAILY 04/07/18 02/12/24 History Budesonide/Formoterol Fumarate 2 puff INHALATION RT-BID 01/12/23 02/12/24 History [Symbicort 160-4.5 Mcg Inhaler] Ipratropium [place] [Atrovent Hfa] 2 puff INHALATION RT-QID PRN 01/12/23 02/17/24 History Isosorbide Dinitrate [Isordil] 15 mg PO DAILY 01/12/23 02/12/24 History Melatonin 10 mg PO HS 01/12/23 02/12/24 History Nitroglycerin Sl Tabs [Nitrostat] 0.4 mg SL Q5M PRN 01/12/23 02/12/24 History Zinc Gluconate [Zinc] 50 mg PO DAILY 01/12/23 02/12/24 History HYDROcodone/APAP 7.5-325MG [[place] 1 - 2 tab PO Q6HR PRN #32 tab 02/18/24 Rx 7.5-325] Allergies Allergy/AdvReac Type Severity Reaction Status Date / Time aspirin Allergy Rash/Hives Verified 02/17/24 09:39 nickel Allergy itching, Verified 02/17/24 08:29 rash Penicillins Allergy Rash/Hives Verified 02/17/24 08:29 Physical Exam Vitals: Vital Signs Temp Pulse Resp BP BP Pulse Ox 02/18/24 10:02 15 02/18/24 09:11 99 02/18/24 06:49 98.9 F 67 18 118/66 96 02/18/24 03:00 114/78 02/18/24 01:09 98.1 F 75 15 98/59 95 02/17/24 19:51 98.3 F 75 17 99/63 96 02/17/24 14:05 80 18 02/17/24 13:20 98.4 F 80 16 112/75 95 Intake and Output 02/17/24 02/18/24 02/18/24 22:59 06:59 14:59 Intake Total 50 Balance 50 Intake: Intake, IV Titration 50 Amount ceFAZolin 2 gm In Sodium 50 Chloride 0.9% 50 ml @ 100 mls/hr IVPB Q8H [facility] Rx#: [id number] Other: Voiding Method Toilet # Voids 1 6 Results CBC & Chem 7: 02/18/24 07:13 02/18/24 07:13 Labs: Abnormal Lab Results - Last 24 Hours (Table) 02/18/24 02/18/24 Range/Units 07:13 07:13 WBC 10.01 H (4.50-10.00) X 10*3/uL RBC 3.68 L (4.10-5.20) X 10*6/uL Hgb 11.3 L (12.0-15.0) g/dL Hct 35.7 L (37.2-46.3) % MCHC 31.7 L (32.0-37.0) g/dL Monocytes # 1.52 H (0.20-1.00) X 10*3/uL Eosinophils # 0.01 L (0.04-0.35) X 10*3/uL Anion Gap 14.10 H (4.00-12.00) mmol/L
== END 2024-02-18 12:26 | disposition home health service (06) ==
LOC: OR 08:11 → 4SSUR 11:51 → OR 02-18 12:26
PROVIDERS: ATTEND Orthopaedic Surgery
DX: M16.12 Unilateral primary osteoarthritis, left hip (principal); E03.9 Hypothyroidism, unspecified; E78.5 Hyperlipidemia, unspecified; F32.A Depression, unspecified; F41.9 Anxiety disorder, unspecified; G89.18 Other acute postprocedural pain; I34.1 Nonrheumatic mitral (valve) prolapse; J45.909 Unspecified asthma, uncomplicated; K21.9 Gastro-esophageal reflux disease without esophagitis; K58.9 Irritable bowel syndrome, unspecified; J18.9 Pneumonia, unspecified organism; Z79.01 Long term (current) use of anticoagulants; Z79.51 Long term (current) use of inhaled steroids; Z79.890 Hormone replacement therapy; Z79.899 Other long term (current) drug therapy; Z87.891 Personal history of nicotine dependence; Z88.0 Allergy status to penicillin; Z90.49 Acquired absence of other specified parts of digestive tract; Z86.14 Personal history of Methicillin resistant Staphylococcus aureus infection; Z88.6 Allergy status to analgesic agent; Z88.8 Allergy status to other drugs, medicaments and biological substances; Z90.89 Acquired absence of other organs
CPT/HCPCS: 94640 ×2; 94760; 97162; 97166; 64447; 80053; 80048; 85025; 85610; 85730; 73501; 27130; C1776; J2250; J0690 ×3; J2405; J3010; J2795; J2704; J1170 ×2

== ENCOUNTER → 2024-09-20 | Outpatient (CLI) | payer MEDICARE ==
--- NOTE | 2024-09-20 08:34 | US ---
EXAMINATION TYPE: US duplex aorta DATE OF EXAM: 09/20/2024 COMPARISON: CT 01/12/2023 CLINICAL INDICATION: Female, 64 years old with history of Z13.6 ENCOUNTER FOR SCREENING FOR CARDIOVAS CULAR D; TECHNIQUE: Multiple sonographic images of the abdominal aorta are obtained with grayscale and color D oppler imaging. FINDINGS: EXAM MEASUREMENTS: Abdominal Aorta: Proximal: 2.5 x 2.7 cm Mid: 1.8 x 2.0 cm Distal: 1.6 x 1.4 cm Bifurcation: Right Iliac: 0.9 x 1.0 cm Left Iliac: 1.0 x 1.0 cm [employer] NOTES: Normal caliber aorta seen with distal calcifications noted IMPRESSION: No ultrasound findings for aortic aneurysm. [facility], , 09/20/2024 8:32 AM
--- NOTE | 2024-09-20 12:22 | CA ---
Exercise Stress Test Report Name: Theresa Garcia Exam Date: 09/20/2024 08:38 Exam Location: [facility] Ht (in): 63 Wt (lb): 156 BSA: 1.74 Ordering Phys: Orville Gutierrez DO Referring Phys: Errol Osorio [facility] Technologist: Daryn Thornton Age: 64 Gender: F : 1960 Procedure CPT: Indications: I34.0 Nonrheumatic mitral valve insufficiency ICD-10 Codes: Patient History: CHEST PRESSURE, NUMBNESS IN FACE/NECK ,HYPERCHOLESTEROLEMIA, FAMILY HX OF HEART DISEASE, PRIOR SMOKER, PRIOR CATH, COPD, ASTHMA Medications: ASA, PENICILLIN, Meds past 24 hrs: Pretest Chest Pain: STRESS TEST Protocol Exercise Duration (min:sec): 07:[address] Depressions (mm): Angina Score: Amezcua Score: Resting HR (bpm): 86 Peak HR (bpm): 134 Resting BP (mmHg): 119 / 81 Peak BP (mmHg): 182 / 83 MPHR: 154 Target HR: 131 % MPHR: 87 METS: 9.2 Total Dose: Peak Dose: Atropine: Double Product: 98652 BP Response: Stress Termination: TARGET HR/MAX EXERTION Stress Symptoms: NO SYMPTOMS Stress Summary: ECG ANALYSIS Resting ECG: Normal sinus rhythm normal axis normal intervals Stress ECG: Patient exercised on Oscar protocol for 7 minutes achieving 85% of predicted maximal heart rate without chest pain or diagnostic ST segment depression. Occasional PVCs are noted at peak exercise CONCLUSIONS About average exercise tolerance Negative stress test by EKG criteria Dr. Jacob Byers MD (Electronically Signed) Final Date: 20 September 2024 12:21
== END | disposition home or self-care (01) ==
LOC: RADUSWWP 07:50
PROVIDERS: ATTEND Family Medicine
DX: Z13.6 Encounter for screening for cardiovascular disorders (principal); I34.0 Nonrheumatic mitral (valve) insufficiency
CPT/HCPCS: 93017; 93979

== ENCOUNTER → 2024-10-12 | Outpatient (CLI) | payer MEDICARE ==
--- NOTE | 2024-10-12 09:34 | MM ---
Reason for Exam: Screening (asymptomatic). Last mammogram was performed 1 year(s) and 1 month(s) ago. Patient History: Menarche at age 10. First Full-Term at age 21. Postmenopausal. Patient used Hormonal Contraceptives for 10 years. Excisional Biopsy on the Left side. Risk Values: Rosa Maria 5 year model risk: 1.8%. NCI Lifetime model risk: 6.4%. Prior Study Comparison: 05/14/2017 Bilateral Screening Mammogram, [facility]. 05/28/2017 Left Diagnostic Mammogram, [facility]. 09/10/2023 Bilateral MG 3D screening mammo w/cad, [facility]. Tissue Density: The breasts are heterogeneously dense, which may obscure small masses. Findings: Analyzed By CAD. There is no suspicious group of microcalcifications or new suspicious mass in either breast. Overall Assessment: Negative, BI-RAD 1 Management: Screening Mammogram of both breasts in 1 year. . Patient should continue monthly self-breast exams. A clinical breast exam by your physician is recommended on an annual basis. This exam should not preclude additional follow-up of suspicious palpable abnormalities. Note on Rosa Maria scores and lifetime risk: 1. A Rosa Maria score greater than 3% is considered moderate risk. If this is the case, consider specialist referral to assess eligibility for a risk reducing agent. 2. If overall lifetime risk for the development of breast cancer is 20% or higher, the patient may qualify for future screening with alternating mammogram and breast MRI. [facility], , 10/12/2024 9:32 AM. Electronically signed and approved by: Nilay Jean-Baptiste M.D.
== END | disposition home or self-care (01) ==
LOC: RADMAMWWP 08:54
PROVIDERS: ATTEND Family Medicine
DX: Z12.31 Encounter for screening mammogram for malignant neoplasm of breast (principal); R92.333 Mammographic heterogeneous density, bilateral breasts; Z78.0 Asymptomatic menopausal state; Z92.0 Personal history of contraception
CPT/HCPCS: 77063; 77067